=== PATIENT | female | born 1960 | race Caucasian/White ===

== ENCOUNTER 2020-01-05 19:46 | Emergency (ER) | payer BC, SELFPAY ==
[2020-01-05] VITALS (8 sets, daily range): BP systolic 111–149; BP diastolic 70–103; PULSE 96–125; RESP 16–28; TEMP 37.7; O2SAT 90–96; BMI 45.7
--- NOTE | 2020-01-05 20:12 | ECG_ITS ---
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 Measurements Intervals [place] Rate: 119 P: 57 IA: 166 QRS: 5 QRSD: 98 T: 62 QT: 339 QTc: 478 Interpretive Statements SINUS TACHYCARDIA NONSPECIFIC ST & T-WAVE ABNORMALITY ABNORMAL RHYTHM ECG Compared to ECG 12/25/2015 04:08:04 Sinus rhythm no longer present T-wave abnormality still present Electronically Signed On 01-06-2020 21:10:28 PATIENT FINANCIAL REPRESENTATIVE by Yair Rebollar M.D. [id number]
--- NOTE | 2020-01-05 20:12 | XRR_ITS ---
PROCEDURE INFORMATION: Exam: XR Chest, 1 View Exam date and time: 01/05/2020 8:32 PM Age: 59 years old Clinical indication: Cough and fever and shortness of breath; Additional info: SOB TECHNIQUE: Imaging protocol: XR of the chest Views: 1 view. COMPARISON: CR Chest 1 [place] [id number] 12/29/2018 10:16 AM FINDINGS: Lungs: Unremarkable. No consolidation. Pleural space: Unremarkable. No pleural effusion. No pneumothorax. Heart/Mediastinum: Unremarkable. No cardiomegaly. Bones/joints: Unremarkable. Other findings: Heavy body habitus. XR/XR chest 1V portable [id number] IMPRESSION: Nonacute.
--- NOTE | 2020-01-05 20:18 | ED_ITS ---
HPI - COVID General: Chief Complaint: COVID symptoms Stated Complaint: DIFF BREATHING Time Seen by Provider: 01/05/20 19:54 Triage information: Has fever, cough or shortness of breath . No known COVID + exposure last 14 days History of Present Illness: MD complaint: has COVID symptoms Prior covid testing: no COVID 19 common symptoms: positive fever(s), chills, non-productive cough, dyspnea, fatigue, body aches, headache(s), throat pain, nausea and diarrhea; negative vomiting COVID 19 other sytmptoms: negative chest pressure, chest pain, requiring oxygen or requiring more oxygen Onset (ago): hour(s) (24) Severity: moderate Pertinent comorbid conditions: COPD/respiratory disease Treatment prior to arrival: breathing treatments COVID Results: SARS-CoV-2 Antigen (Rapid) Negative (Negative) 01/05/20 20:16 01/05/20 Nasal/Oral Coronavirus 2019 PCR Pending 01/05/20 20:42 01/05/20 Review of Systems Const: Reports: fever(s), chills, body aches and fatigue Eyes: Denies: change in vision ENMT: Reports: throat pain Card: Denies: chest pain Resp: Reports: dyspnea and non-productive cough GI: Reports: nausea and diarrhea; Denies: vomiting : Denies: dysuria or hematuria Musc: Reports: back pain; Denies: neck pain, joint redness or joint warmth Skin/Breast: Denies: rash or erythema Neuro: Reports: headache(s) Psych: Denies: anxiety Physical Exam Const: GENERAL APPEARANCE: ill appearing ORIENTATION/CONSCIOUSNESS: Yes oriented to person, Yes oriented to place and Yes oriented to time HENMT: COMMON NORMALS: normocephalic, external ears normal and Normal external nose present HEAD & SCALP: normocephalic FACE & SINUS: normal facial exam NOSE: Normal external nose present and No nasal discharge present EXTERNAL EAR: Yes external ears normal Eye: COMMON NORMALS: Equal, round and reactive pupils present, EOMs intact bilaterally and conjunctivae normal EYELID: eyelids normal CONJUNCTIVA: Yes conjunctivae normal PUPIL: Yes Equal, round and reactive pupils present Neck/C-Spine: COMMON NORMALS: full ROM GENERAL: No tracheal deviation CERVICAL SPINE: Yes normal cervical lordosis and No Cervical spine tenderness Chest: COMMONS NORMALS: normal inspection of the chest CHEST: No tenderness Resp: COMMON NORMALS: clear to auscultation bilaterally EFFORT & INSPECTION: Yes tachypneic, No retractions, No uses accessory muscles and No tracheal deviation AUSCULTATION: clear to auscultation bilaterally, no rhonchi, no wheezes and lung sounds not diminished Cardio: COMMON NORMALS: regular rhythm RATE: tachycardic RHYTHM: regular rhythm HEART SOUNDS: no murmurs PERIPHERAL PULSES: radial pulses present GI: INSPECTION: No abdominal distension AUSCULTATION: No Hyperactive bowel sounds present and No Hypoactive bowel sounds present PALPATION: No Guarding due to palpation present (GI) and No Rigid due to palpation PERCUSSION: no dullness to percussion and no tympanic to percussion Neuro: SENSORIUM/ORIENTATION: Yes oriented to person, Yes oriented to place and Yes oriented to time Psych: COMMON NORMALS: mental status grossly normal Skin: COMMON NORMALS: no rashes or lesions noted GENERAL SKIN EXAM: no rashes or lesions noted Course ED course: 59-year-old female with a history of COPD. She complains of shortness of breath, fever, aches, and diarrhea. She came in tachypneic. Mildly tachycardic. Her heart rates improved after a small amount of fluid. She is placed on 2 L of oxygen with saturations at 98%, and no tachypnea. Chest x-ray is negative. Her inflammatory markers were not elevated. Her potassium was 3.2, and was repleted. She was given Toradol and Tylenol for her temperat ure and body aches, and is significantly better. Treatment options further were discussed with her, she would like to go home. She has a CPAP machine with an oxygen condenser. We will give her a tree, and nasal cannula hosing to go home with her. She will go home on dexamethasone as well. Vital Signs: Vital signs: Vital Signs Temperature 99.8 F H 01/05/20 19:48 Pulse Rate 98 01/06/20 00:08 Respiratory Rate 16 01/06/20 00:08 Blood Pressure 133/68 01/06/20 00:08 Pulse Oximetry 98 01/06/20 00:08 MDM - COVID Lab Data Result diagrams: 01/05/20 20:13 01/05/20 20:13 Labs: Lab Results 01/05/20 01/05/20 01/05/20 Range/Units 20:13 20:13 20:13 WBC 11.6 H (4.0-10.0) 10^3/uL RBC 4.36 (4.1-5.3) 10^6/uL Hgb 13.0 (11.5-15.3) g/dL Hct 39.7 (37.0-47.0) % MCV 91.1 (81-99) fL MCH 29.8 (28.0-34.0) pg MCHC 32.7 (30.0-36.0) g/dL RDW 13.1 (12.1-15.1) % Plt Count 158 (130-400) 10^3/cmm MPV 12.0 H (7.4-10.4) fL Neut % (Auto) 82.5 % Lymph % (Auto) 8.7 % [place] % (Auto) 7.0 % Eos % (Auto) 0.7 % Baso % (Auto) 0.4 % Neut # (Auto) 9.60 H (1.8-7.7) 10^3/uL Lymph # (Auto) 1.0 (0.8-4.8) 10^3/uL [place] # (Auto) 0.8 (0.2-0.9) 10^3/uL Eos # (Auto) 0.1 (0.0-0.8) 10^3/uL Baso # (Auto) 0.1 (0.0-0.1) 10^3/uL Nucleated RBC % (auto) 0 % Nucleated RBCs # 0.0 /100WBC D-Dimer 0.53 (0-0.59) ug/mIFEU Specimen Type Sample Site ABG pH (7.35-7.45) ABG pCO2 (35-45) mmHg ABG pO2 (80.0-100.0) mmHg ABG HCO3 (22-26) mmol/L ABG Base Excess (-2.0-2.0) mmol/L Fuad Test Hematocrit (37-47) % O2 Delivery Device Circuitry Negative Inspector ID Sodium 134 L (136-145) mmol/L Potassium 3.2 L (3.5-5.1) mmol/L Chloride 99 (98-107) mmol/L Carbon Dioxide 21 L (22-29) mmol/L Anion Gap 17.2 (5-19) BUN 10 (8-23) mg/dL Creatinine 0.8 (0.5-0.9) mg/dL GFR Calculation 72.9 L (90-130) mL/min Glucose 147 H (65-115) mg/dL Calculated Osmolality 280 L (285-295) mOsm/kg Lactic Acid (0.5-2.2) mmol/L Calcium 9.1 (8.5-10.5) mg/dL Magnesium 1.7 (1.7-2.3) mg/dL Ferritin 84 (15-150) ng/mL Total Bilirubin 0.4 (0.15-1.2) mg/dL AST 19 (0-32) U/L ALT 17 (0-33) U/L Alkaline Phosphatase 103 (35-105) IU/L Lactate Dehydrogenase 166 (135-214) U/L C-Reactive Protein 24.1 H (0.0-4.9) mg/L NT-Pro-B Natriuret Pep 365 H (0-125) pg/mL Total Protein 7.0 (6.6-8.7) g/dL Albumin 4.3 (3.5-5.2) g/dL Globulin 2.7 (1.3-4.6) g/dL Procalcitonin 0.20 (0-0.5) ng/mL Urine Color (Yellow) Urine Appearance (CLEAR) Urine pH (5-7) Ur Specific [place] (1.005-1.030) Urine Protein (Negative) Urine Glucose (UA) (Normal) Urine Ketones (Negative) Urine Blood (Negative) Urine Nitrate (Negative) Urine Bilirubin (Negative) Urine Urobilinogen (Negative) mg/dL Ur Leukocyte Esterase (Negative) Urine RBC (0-2) /hpf Urine WBC (0-5) /hpf Ur Squamous Epith Cells (0-5) /hpf Amorphous Sediment Urine Bacteria (NONE) /hpf Influenza Type A Ag (Negative) Influenza Type B Ag (Negative) SARS-CoV-2 Ag (Rapid) (Negative) 01/05/20 01/05/20 01/05/20 Range/Units 20:13 20:16 20:16 WBC (4.0-10.0) 10^3/uL RBC (4.1-5.3) 10^6/uL Hgb (11.5-15.3) g/dL Hct (37.0-47.0) % MCV (81-99) fL MCH (28.0-34.0) pg MCHC (30.0-36.0) g/dL RDW (12.1-15.1) % Plt Count (130-400) 10^3/cmm MPV (7.4-10.4) fL Neut % (Auto) % Lymph % (Auto) % [place] % (Auto) % Eos % (Auto) % Baso % (Auto) % Neut # (Auto) (1.8-7.7) 10^3/uL Lymph # (Auto) (0.8-4.8) 10^3/uL [place] # (Auto) (0.2-0.9) 10^3/uL Eos # (Auto) (0.0-0.8) 10^3/uL Baso # (Auto) (0.0-0.1) 10^3/uL Nucleated RBC % (auto) % Nucleated RBCs # /100WBC D-Dimer (0-0.59) ug/mIFEU Specimen Type Sample Site ABG pH (7.35-7.45) ABG pCO2 (35-45) mmHg ABG pO2 (80.0-100.0) mmHg ABG HCO3 (22-26) mmol/L ABG Base Excess (-2.0-2.0) mmol/L Fuad Test Hematocrit (37-47) % O2 Delivery Device Circuitry Negative Inspector ID Sodium (136-145) mmol/L Potassium (3.5-5.1) mmol/L Chloride (98-107) mmol/L Carbon Dioxide (22-29) mmol/L Anion Gap (5-19) BUN (8-23) mg/dL Creatinine (0.5-0.9) mg/dL GFR Calculation (90-130) mL/min Glucose (65-115) mg/dL Calculated Osmolality (285-295) mOsm/kg Lactic Acid 2.0 (0.5-2.2) mmol/L Calcium (8.5-10.5) mg/dL Magnesium (1.7-2.3) mg/dL Ferritin (15-150) ng/mL Total Bilirubin (0.15-1.2) mg/dL AST (0-32) U/L ALT (0-33) U/L Alkaline Phosphatase (35-105) IU/L Lactate Dehydrogenase (135-214) U/L C-Reactive Protein (0.0-4.9) mg/L NT-Pro-B Natriuret Pep (0-125) pg/mL Total Protein (6.6-8.7) g/dL Albumin (3.5-5.2) g/dL Globulin (1.3-4.6) g/dL Procalcitonin (0-0.5) ng/mL Urine Color (Yellow) Urine Appearance (CLEAR) Urine pH (5-7) Ur Specific [place] (1.005-1.030) Urine Protein (Negative) Urine Glucose (UA) (Normal) Urine Ketones (Negative) Urine Blood (Negative) Urine Nitrate (Negative) Urine Bilirubin (Negative) Urine Urobilinogen (Negative) mg/dL Ur Leukocyte Esterase (Negative) Urine RBC (0-2) /hpf Urine WBC (0-5) /hpf Ur Squamous Epith Cells (0-5) /hpf Amorphous Sediment Urine Bacteria (NONE) /hpf Influenza Type A Ag Negative (Negative) Influenza Type B Ag Negative (Negative) SARS-CoV-2 Ag (Rapid) Negative (Negative) 01/05/20 01/05/20 Range/Units 20:30 22:22 WBC (4.0-10.0) 10^3/uL RBC (4.1-5.3) 10^6/uL Hgb (11.5-15.3) g/dL Hct (37.0-47.0) % MCV (81-99) fL MCH (28.0-34.0) pg MCHC (30.0-36.0) g/dL RDW (12.1-15.1) % Plt Count (130-400) 10^3/cmm MPV (7.4-10.4) fL Neut % (Auto) % Lymph % (Auto) % [place] % (Auto) % Eos % (Auto) % Baso % (Auto) % Neut # (Auto) (1.8-7.7) 10^3/uL Lymph # (Auto) (0.8-4.8) 10^3/uL [place] # (Auto) (0.2-0.9) 10^3/uL Eos # (Auto) (0.0-0.8) 10^3/uL Baso # (Auto) (0.0-0.1) 10^3/uL Nucleated RBC % (auto) % Nucleated RBCs # /100WBC D-Dimer (0-0.59) ug/mIFEU Specimen Type Arterial Sample Site Radial, right ABG pH 7.48 H (7.35-7.45) ABG pCO2 31.4 L (35-45) mmHg ABG pO2 60.2 L (80.0-100.0) mmHg ABG HCO3 23.1 (22-26) mmol/L ABG Base Excess 0.3 (-2.0-2.0) mmol/L Fuad Test Pos Hematocrit 40.8 (37-47) % O2 Delivery Device None Circuitry Negative Inspector ID ellpe Sodium (136-145) mmol/L Potassium (3.5-5.1) mmol/L Chloride (98-107) mmol/L Carbon Dioxide (22-29) mmol/L Anion Gap (5-19) BUN (8-23) mg/dL Creatinine (0.5-0.9) mg/dL GFR Calculation (90-130) mL/min Glucose (65-115) mg/dL Calculated Osmolality (285-295) mOsm/kg Lactic Acid (0.5-2.2) mmol/L Calcium (8.5-10.5) mg/dL Magnesium (1.7-2.3) mg/dL Ferritin (15-150) ng/mL Total Bilirubin (0.15-1.2) mg/dL AST (0-32) U/L ALT (0-33) U/L Alkaline Phosphatase (35-105) IU/L Lactate Dehydrogenase (135-214) U/L C-Reactive Protein (0.0-4.9) mg/L NT-Pro-B Natriuret Pep (0-125) pg/mL Total Protein (6.6-8.7) g/dL Albumin (3.5-5.2) g/dL Globulin (1.3-4.6) g/dL Procalcitonin (0-0.5) ng/mL Urine Color Yellow (Yellow) Urine Appearance Sl cloudy A (CLEAR) Urine pH 5 (5-7) Ur Specific [place] 1.005 (1.005-1.030) Urine Protein Neg (Negative) Urine Glucose (UA) Norm (Normal) Urine Ketones Negative (Negative) Urine Blood 2+ H (Negative) Urine Nitrate Negative (Negative) Urine Bilirubin Neg (Negative) Urine Urobilinogen Norm (Negative) mg/dL Ur Leukocyte Esterase Negative (Negative) Urine RBC 0-4 H (0-2) /hpf Urine WBC 0-4 H (0-5) /hpf Ur Squamous Epith Cells 15-25 H (0-5) /hpf Amorphous Sediment Not Reportable Urine Bacteria 2+ H (NONE) /hpf Influenza Type A Ag (Negative) Influenza Type B Ag (Negative) SARS-CoV-2 Ag (Rapid) (Negative) COVID Results: SARS-CoV-2 Antigen (Rapid) Negative (Negative) 01/05/20 20:16 01/05/20 Nasal/Oral Coronavirus 2019 PCR Pending 01/05/20 20:42 01/05/20 Discharge Plan Discharge Patient Disposition: Home Clinical Impression: Suspected severe acute respiratory syndrome coronavirus 2 (SARS-CoV-2) infection, Acute exacerbation of chronic obstructive pulmonary disease Condition: Stable Prescriptions: New dexamethasone 6 mg tablet 6 mg PO DAILY Qty: 5 RF: 0 doxycycline hyclate 100 mg capsule 100 mg PO BID 7 Days Qty: 14 RF: 0 No Action albuterol sulfate 2.5 mg /3 mL (0.083 %) solution for nebulization 2.5 mg INHALATION TID PRN (Reason: shortness of breath or wheezing) RF: 0 atenolol 100 mg tablet 100 mg PO DAILY RF: 0 atorvastatin 40 mg tablet 40 mg PO DAILY RF: 0 Atrovent HFA 17 mcg/actuation HFA aerosol inhaler 1 puff INHALATION QID RF: 0 Breo Ellipta 200-25 mcg/dose blister with device 1 inh INHALATION DAILY RF: 0 cetirizine 10 mg capsule 10 mg PO DAILY RF: 0 clonazepam 0.5 mg tablet 0.5 mg PO BID PRNRF: 0 cyanocobalamin (vitamin B-12) 1,000 mcg/mL syringe 1,000 mcg .Route .monthly RF: 0 doxycycline hyclate 100 mg tablet 100 mg PO BID RF: 0 ergocalciferol (vitamin D2) 1,250 mcg (50,000 unit) capsule 1,250 mcg PO .weekly RF: 0 fluticasone propion-salmeterol 500-50 mcg/dose blister with device 1 inh INHALATION BID RF: 0 fluticasone propionate 50 mcg/actuation spray,suspension 1 spray INTRANASAL DAILY RF: 0 furosemide 40 mg tablet 40 mg PO BID RF: 0 ibuprofen 800 mg tablet 800 mg PO Q8H PRN (Reason: pain) RF: 0 potassium chloride [Klor-Con M20] 20 mEq tablet,ER particles/crystals 20 meq PO DAILY RF: 0 montelukast 10 mg tablet 10 mg PO DAILY RF: 0 omeprazole 40 mg capsule,delayed release(DR/EC) 40 mg PO DAILY RF: 0 pravastatin 40 mg tablet 40 mg PO DAILY RF: 0 albuterol sulfate [ProAir HFA] 90 mcg/actuation HFA aerosol inhaler 2 puff INHALATION Q6H PRNRF: 0 sertraline 100 mg tablet 100 mg PO DAILY RF: 0 Discharge Orders: Discharge Order (Routine); Ordered 01/05/20 Ordered By: Michel Nguyen Referrals: Karina Girard FNP [Primary Care Provider] - 4-7 days Discharge Diet: Advance as tolerated Discharge Activity: Increase activity as tolerated Patient Instructions: Chronic Obstructive Pulmonary Disease (ED) Activity Restrictions/Additional Instructions: Medications as directed. Use your breathing treatments at home as needed. You have been supplied with nasal cannula hosing took up to your CPAP machine. Please give us a call if you have any problems with this, as we can arrange your home medical equipment company to come by and help. Return for worsening shortness of breath despite treatment, continued fevers despite treatment, vomiting liquids or medications, other concerning symptoms. Coding Level of Care Code ED Property Economist for Rachel Fwd Exam Comprehensive
[2020-01-05] MEDS: dexamethasone 4 mg/mL INJ 10 MG IVP (20:37)
[2020-01-05] MEDS: ondansetron 2 mg/ML SDV 2 mL 4 MG IVP (20:39)
[2020-01-05 20:40] LABS: ABG PCO2 31.4 mmHg (35-45); ABG PH Result 7.48 (7.35-7.45); Arterial Blood Gas Hematocrit 40.8 % (37-47); Base Excess ABG 0.3 mmol/L (-2.0-2.0); Blood Gas Allen Test Pos; Blood Gas Sample Site Radial, right; Blood Gas Sample Type Arterial; HCO3 ABG 23.1 mmol/L (22-26); PO2 ABG 60.2 mmHg (80.0-100.0)
[2020-01-05] MEDS: fentaNYL 50 mcg/mL INJ 2mL IVP (20:40)
[2020-01-05 20:41] LABS: Basophils # 0.1 10^3/uL (0.0-0.1); Basophils % 0.4 %; Eosinophils # 0.1 10^3/uL (0.0-0.8); Eosinophils % 0.7 %; Hematocrit 39.7 % (37.0-47.0); Lymphocytes % 8.7 %; Mean Corpuscular HGB Conc 32.7 g/dL (30.0-36.0); Mean Corpuscular Hemoglobin 29.8 pg (28.0-34.0); Mean Corpuscular Volume 91.1 fL (81-99); Monocytes # 0.8 10^3/uL (0.2-0.9); Neutrophils % 82.5 %; Nucleated Red Blood Cells % 0 %; Platelet Count 158 10^3/cmm (130-400); Red Blood Count 4.36 10^6/uL (4.1-5.3); Red Cell Distribution Width 13.1 % (12.1-15.1); White Blood Count 11.6 10^3/uL (4.0-10.0)
[2020-01-05] MEDS: ketorolac 30 mg/mL INJ IVP (20:41)
[2020-01-05] MEDS: sodium chloride 0.9% 500 ML 999 ML IV (20:42)
[2020-01-05 21:00] LABS: Influenza A by IFA Negative (Negative); Influenza B by IFA Negative (Negative); SARS Covid-2 Antigen Negative (Negative)
[2020-01-05 21:03] LABS: D Dimer 0.53 ug/mIFEU (0-0.59)
[2020-01-05] MEDS: acetaminophen 500 mg Tablet 1000 MG PO (21:04)
[2020-01-05 21:14] LABS: NT Pro B Type Natriuretic Pept 365 pg/mL (0-125)
[2020-01-05 21:25] LABS: Alanine Aminotransferase 17 U/L (0-33); Albumin Level 4.3 g/dL (3.5-5.2); Alkaline Phosphatase 103 IU/L (35-105); Anion Gap 17.2 (5-19); Aspartate Amino Transferase 19 U/L (0-32); Blood Urea Nitrogen 10 mg/dL (8-23); C Reactive Protein 24.1 mg/L (0.0-4.9); Calcium 9.1 mg/dL (8.5-10.5); Carbon Dioxide 21 mmol/L (22-29); Chloride 99 mmol/L (98-107); Ferritin 84 ng/mL (15-150); Globulin 2.7 g/dL (1.3-4.6); Glomerular Filtration Rate 72.9 mL/min (90-130); Glucose 147 mg/dL (65-115); Magnesium 1.7 mg/dL (1.7-2.3); Osmolality Calculated 280 mOsm/kg (285-295); Potassium 3.2 mmol/L (3.5-5.1); Sodium 134 mmol/L (136-145); Total Bilirubin 0.4 mg/dL (0.15-1.2)
[2020-01-05 21:28] LABS: Lactate Dehydrogenase 166 U/L (135-214)
[2020-01-05] MEDS: potassium chloride ER 10 mEq Tablet 40 MEQ PO (22:10)
[2020-01-05 22:42] LABS: Add Urine Microscopic? YES; Bilirubin Urine Neg (Negative); Blood Urine 2+ (Negative); Glucose Urine UA Norm (Normal); Ketones Urine Negative (Negative); Leukocyte Esterase Urine Negative (Negative); Nitrate Urine Negative (Negative); Protein Urine Neg (Negative); Specific Gravity, Urine 1.005 (1.005-1.030); Urine Color Yellow (Yellow); Urobilinogen Urine Norm (Negative); pH Urine 5 (5-7)
[2020-01-05 22:44] LABS: RBC Urine 0-4 /hpf (0-2); WBC Urine 0-4 /hpf (0-5)
[2020-01-05 22:45] LABS: Add Urine Culture? No; Bacteria Urine 2+ /hpf; Squamous Epithelial Cell Urine 15-25 /hpf (0-5)
[2020-01-06 00:08] VITALS: BP 133/68; PULSE 98; RESP 16; O2SAT 98
[2020-01-09 14:51] LABS: Coronavirus Lab Test PTC Inconclusive
--- NOTE | 2020-01-10 08:19 | PC.NURSE ---
pt contacted and message left for pt to return call.
--- NOTE | 2020-01-10 11:07 | PC.NURSE ---
pt called back and has been retested for covid
== END 2020-01-06 00:09 | disposition home or self-care (01) ==
PROVIDERS: Emergency Provider Emergency Medicine; PCP Nurse Practitioner Family
DX: J44.1 Chronic obstructive pulmonary disease with (acute) exacerbation (principal); Z20.828 Contact with and (suspected) exposure to other viral communicable diseases
CPT/HCPCS: 12345; 36415; 36600; 71045; 80053; 81001; 82728; 82803; 83605; 83615; 83735; 83880; 84145; 85025; 85378; 86140; 87040; 87426; 87635; 87804; 93005; 96374; 96375; 99283; 99284; J1100; J1885; J2405; J3010; J7040

== ENCOUNTER → 2021-01-05 08:50 | Outpatient (BNVA) | payer BC, SELFPAY | PROVIDERS: PCP Nurse Practitioner Family; Visit Provider Surgery | DX: Z20.822 Contact with and (suspected) exposure to COVID-19 (principal) | CPT/HCPCS: 87635 ==

== ENCOUNTER 2021-01-09 07:30 | Day surgery (SDC) | payer BC, SELFPAY ==
[2021-01-07 15:47] VITALS: BMI 45.7
--- NOTE | 2021-01-09 08:09 | ANES.PREANE2 ---
Pre-Anesthetic Assessment Pre-Anesthetic Assessment: Height/Weight: Height 1.65 m Weight 124.738 kg Preop Diagnosis: diagnostic Proposed Procedure: Operation Date: 01/09/21 09:00 Proposed Procedures p Colonoscopy 95746 Z86.010(Not Applicable) - Pablo Roy MD Was Beta Vianey taken within 24 hours: Yes Was Clonidine taken within 24 hours: N/A Social: Social History: No alcohol and No tobacco Exam: Pre-Anes Outpt Exam: alert, oriented x 3, clear to auscultation bilaterally and regular rate & rhythm Airway: Submandibular: WNL Cervical ROM: WNL MP: 2 Dentition: Chipped Pulmonary: Pulmonary: COPD and Sleep apnea Metabolic: Metabolic: DM, Hyperlipidemia and Morbid obesity Musc/skel: Musc/skel: OA/DJD Neuropsych: Neuropsych: Anxiety and Depression Anesthetic Plan: ASA status: 3 Anesthesia: MAC Risk of > 500 ml blood loss (7ml/kg in children): No PFSH Anesthesia PFSH: Medical History (Updated 12/19/20 @ 12:56 by Pablo Roy MD) Asthma Colon polyps COPD (chronic obstructive pulmonary disease) Gout Hypertension Sleep apnea Surgical History (Updated 12/19/20 @ 08:44 by Pablo Roy MD) H/O colonoscopy H/O total hysterectomy History of bladder surgery History of cholecystectomy History of surgical removal of ganglion cyst History of tubal ligation Social History Smoking and tobacco status: never smoked Second hand smoke exposure: No Data Anesthesia Cardiac Studies: No Data to Display
[2021-01-09 08:12] VITALS: BP 134/85; PULSE 83; RESP 18; TEMP 36.2; O2SAT 94
[2021-01-09] MEDS: sodium chloride 0.9% 1,000 ML 30 ML IV (08:27)
--- NOTE | 2021-01-09 09:31 | W.PM.OPSUD ---
Surgery/Procedure H&P Update DATE OF PROCEDURE: January 09, 2021 DATE H&P PERFORMED: 12/19/20 H&P UPDATE INFORMATION: I have reviewed H&P completed within last 30 days, I have examined patient prior to procedure and No changes to prior documentation PREOP DIAGNOSIS: diagnostic PLANNED PROCEDURE: Operation Date: 01/09/21 09:00 Proposed Procedures p Colonoscopy 32054 Z86.010(Not Applicable) - Pablo Roy MD
[2021-01-09 10:42] VITALS: BP 110/69; PULSE 62; RESP 16; TEMP 36.4; O2SAT 97
[2021-01-09 10:57] VITALS: BP 106/64; PULSE 56; RESP 16; O2SAT 100
--- NOTE | 2021-01-09 11:13 | US_ITS ---
WS: [id number] ULTRASOUND SOFT TISSUES RIGHT elbow. HISTORY: LOCALIZED SWELLING,MASS,LUMP RIGHT UPPER LIMB COMPARISON: None available. TECHNIQUE: 2-D and color Doppler imaging is submitted. Ultrasound is directed just superior to the RIGHT elbow. No soft tissue mass identified. This would b e an good location for olecranon bursitis. The bursa does not appear significantly distended by ultra sound but if this was a complex bursitis it may not be visualized readily. US/US soft tissue/extremity [id number] IMPRESSION: No obvious soft tissue abnormality in the RIGHT superior elbow.
--- NOTE | 2021-01-09 13:56 | ANE.PACU2 ---
Inpatient post-anesthesia follow up: Airway intact: Yes Vital signs: Temperature 97.6 F Pulse Rate 56 Respiratory Rate 16 Blood Pressure 106/64 Pulse Oximetry 100 Oxygen Delivery Me thod Room Air Oxygen Flow Rate Fraction of Inspir ed Oxygen Hydration adequate: Yes Nausea and vomiting: No Pain level: 1 Mental status: Baseline
[2021-01-12 06:09] LABS: Glucose Point of Care 120 mg/dL (70-110)
== END 2021-01-09 11:15 | disposition home or self-care (01) ==
PROVIDERS: PCP Nurse Practitioner Family; Visit Provider Surgery
PROC: 0DJD8ZZ Inspection of Lower Intestinal Tract, Via Natural or Artificial Opening Endoscopic (ICD-10-PCS; CPT 45378; principal; 2021-01-09 09:00)
DX: Z86.010 Personal history of colon polyps (principal); D12.0 Benign neoplasm of cecum; D12.4 Benign neoplasm of descending colon; K57.30 Diverticulosis of large intestine without perforation or abscess without bleeding; I10 Essential (primary) hypertension; Z90.49 Acquired absence of other specified parts of digestive tract
CPT/HCPCS: 36416; 45385; 76882; 82962; 88305; 96360; 96361; J2704; J7030

== ENCOUNTER → 2021-04-10 16:21 | Outpatient (BNVA) | payer OTHER, SELFPAY | PROVIDERS: PCP Nurse Practitioner Family; Visit Provider Registered Nurse Neonatal Intensive Care | DX: M17.11 Unilateral primary osteoarthritis, right knee (principal) | CPT/HCPCS: 73562 ==

== ENCOUNTER 2021-04-15 11:45 | Outpatient (CLI) | payer OTHER, SELFPAY ==
--- NOTE | 2021-04-15 11:50 | XR_ITS ---
WS: [id number] Exam: XR shoulder RT min 2V* [id number] Date/Time of Exam: 04/15/2021 11:57 AM Reason For Exam: fell on right shoulder No acute fracture or dislocation. Degenerative change of the glenohumeral joint. Subacromial bone spu rring. There has been excision of parts of the distal clavicle. XR/XR shoulder RT min 2V* [id number] IMPRESSION: 1. Degenerative changes. No fracture or dislocation.
== END 2021-04-15 11:46 | disposition home or self-care (01) ==
LOC: RAD 11:49
PROVIDERS: PCP Nurse Practitioner Family; Visit Provider Family Medicine
DX: M25.511 Pain in right shoulder (principal); W19.XXXA Unspecified fall, initial encounter
CPT/HCPCS: 73030

== ENCOUNTER 2021-05-25 11:16 | Outpatient (CLI) | payer OTHER, SELFPAY ==
--- NOTE | 2021-05-25 11:45 | MR_ITS ---
WS: [id number] MRI RIGHT SHOULDER HISTORY: Fall on RIGHT shoulder. History of prior rotator cuff repair. COMPARISON: None available. TECHNIQUE: Multiplanar sequences of the shoulder joint are submitted. Severe AC joint narrowing with hypertrophic bone and soft tissue encroaching upon the distal supraspi natus. There is a small osteophyte from the distal undersurface of the acromion causing moderate suba cromial impingement. Humeral head is high riding abutting the acromion. Numerous anchors are noted wi thin the humeral head. There is loss of the normal cortex and cartilage of the humeral head with oste ophytes. Micrometallic fragments are present in the soft tissues from prior shoulder repair. Elongati on with abnormal appearance of the glenoid. Normal biceps tendon is not identified in the bicipital g roove. No os acromion. Supraspinatus and infraspinatus tendons are torn completely and retracted at least to the superior hu meral head. Muscles are atrophied. Subscapularis tendon has increased signal. I suspect is probably a partial tear of the subscapularis tendon. There is extensive subscapularis tendinopathy. Marked diego ohumeral joint space narrowing. Abnormal seating of the humeral head within the glenoid. Osteophytic ridging and loss of the normal labrum. MR/MR shoulder RT wo con* [id number] IMPRESSION: 1. Complete tears with retraction at least to the medial humeral head of the s upraspinatus and infraspinatus tendons with muscle atrophy. 2. Moderate tendinopathy and possible partial tear in the subscapularis tendon . 3. Severe AC joint arthritis with encroachment upon the supraspinatus muscle. 4. Advanced degenerative changes at the glenohumeral head with high riding hum eral head abutting the undersurface of the acromion. 5. Numerous anchors are noted within the humeral head from prior rotator cuff repair. 6. Biceps tendon is not identified in the bicipital groove. Suspect torn and/o r dislocated.
== END 2021-05-25 11:17 | disposition home or self-care (01) ==
LOC: RAD 11:18
PROVIDERS: PCP Nurse Practitioner Family; Visit Provider Family Medicine
DX: S46.211A Strain of muscle, fascia and tendon of other parts of biceps, right arm, initial encounter (principal); M75.121 Complete rotator cuff tear or rupture of right shoulder, not specified as traumatic; M19.011 Primary osteoarthritis, right shoulder; X58.XXXA Exposure to other specified factors, initial encounter
CPT/HCPCS: 73221

== ENCOUNTER 2021-09-05 20:50 | Inpatient (IN) | payer OTHER, SELFPAY ==
[2021-09-05 20:55] VITALS: BP 89/58; PULSE 101; RESP 29; TEMP 37.1; O2SAT 93; BMI 39.9
--- NOTE | 2021-09-05 21:13 | XRR_ITS ---
PROCEDURE INFORMATION: Exam: XR Chest Exam date and time: 09/05/2021 9:27 PM Age: 60 years old Clinical indication: Shortness of breath; Additional info: SOB TECHNIQUE: Imaging protocol: Radiologic exam of the chest. Views: 1 view. COMPARISON: CR XR chest 1V portable [id number] 01/05/2020 8:46 PM FINDINGS: Lungs: Patchy airspace opacities in the left lung base and central left lung. The right lung is clear. Pleural spaces: Unremarkable. No pleural effusion. No pneumothorax. Heart/Mediastinum: Unremarkable. No cardiomegaly. Bones/joints: Unremarkable. XR/XR chest 1V portable [id number] IMPRESSION: Patchy pneumonia or aspiration in the left lung.
--- NOTE | 2021-09-05 21:15 | ECG_ITS ---
[facility] Test Date: 2021-09-05 Pat Name: Kavin Robb Department: Room: Gender: Female Analyst Market Intelligence: : 1960 Requested By: Michel Altamirano Order Number: [id number] Kirti MD: Edward Greene M.D. Measurements Intervals [place] Rate: 93 P: 20 MS: 155 QRS: 27 QRSD: 97 T: 55 QT: 361 QTc: 450 Interpretive Statements SINUS RHYTHM WITH FREQUENT VENTRICULAR PREMATURE COMPLEXES NONSPECIFIC ST & T-WAVE ABNORMALITY ABNORMAL RHYTHM ECG Compared to ECG 01/05/2020 20:01:31 Ventricular premature complex(es) now present Sinus tachycardia no longer present T-wave abnormality still present Electronically Signed On 09-07-2021 8:09:48 CDT by Edward Greene M.D. [id number]
[2021-09-05 21:39] LABS: ABG PCO2 30.5 mmHg (35-45); ABG PH Result 7.47 (7.35-7.45); Arterial Blood Gas Hematocrit 37.7 % (37-47); Base Excess ABG -0.9 mmol/L (-2.0-2.0); Blood Gas Allen Test Pos; Blood Gas LPM 2.5 %; Blood Gas Operator Identificat WALCI; Blood Gas Sample Site Radial, left; Blood Gas Sample Type Arterial; Carboxyhemoglobin 1.1 %THgb (0.4-20.1); HGB O2 Sat 94.5 % (95-100); Oxygen Device NC; PO2 ABG 77.1 mmHg (80.0-100.0); Total Hemoglobin 12.3 g/dL (12-16)
[2021-09-05 21:42] VITALS: PULSE 96; RESP 18; O2SAT 96
[2021-09-05] MEDS: ipratropium-albuterol 3 mL Neb INHALATION (21:43)
[2021-09-05 21:44] VITALS: PULSE 95
[2021-09-05 22:39] LABS: Hematocrit 37.8 % (37.0-47.0); Hemoglobin 12.2 g/dL (11.5-15.3); Mean Corpuscular HGB Conc 32.3 g/dL (30.0-36.0); Mean Corpuscular Hemoglobin 29.2 pg (28.0-34.0); Mean Corpuscular Volume 90.4 fl (81-99); Mean Platelet Volume 11.1 fL (7.4-10.4); Platelet Count 151 10^3/cmm (130-400); Red Blood Count 4.18 10^6/uL (4.1-5.3); Red Cell Distribution Width 12.9 % (12.1-15.1); White Blood Count 7.7 10^3/uL (4.0-10.0)
[2021-09-05 22:57] LABS: Lactic Sepsis W/Reflex 2.5 mmol/L (0.5-2.2); Troponin(5th) Baseline 6 ng/L (0-10)
[2021-09-05 23:08] LABS: Alanine Aminotransferase 10 U/L (0-33); Albumin Level 3.3 g/dL (3.5-5.2); Alkaline Phosphatase 116 IU/L (35-105); Anion Gap 18.4 (5-19); Aspartate Amino Transferase 10 U/L (0-32); Blood Urea Nitrogen 31 mg/dL (8-23); Calcium 8.8 mg/dL (8.5-10.5); Carbon Dioxide 23 mmol/L (22-29); Chloride 90 mmol/L (98-107); Globulin 3.2 g/dL (1.3-4.6); Glomerular Filtration Rate 26.8 mL/min (90-130); Glucose 116 mg/dL (65-115); NT Pro B Type Natriuretic Pept 1349 pg/mL (0-125); Osmolality Calculated 274 mOsm/kg (285-295); Potassium 3.4 mmol/L (3.5-5.1); Sodium 128 mmol/L (136-145); Total Bilirubin 0.9 mg/dL (0.15-1.2); Total Protein 6.5 g/dL (6.6-8.7)
--- NOTE | 2021-09-05 23:15 | ECG_ITS ---
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 Measurements Intervals [place] Rate: 97 P: 62 ID: [id number] QRS: 55 QRSD: 101 T: 66 QT: 379 QTc: 483 Interpretive Statements SINUS RHYTHM NONSPECIFIC ST & T-WAVE ABNORMALITY Compared to ECG 09/05/2021 21:46:09 Ventricular premature complex(es) no longer present T-wave abnormality still present Electronically Signed On 09-07-2021 18:15:46 CDT by Edward Greene M.D. [id number]
[2021-09-05 23:30] VITALS: BP 85/50; PULSE 91; O2SAT 94
[2021-09-05 23:37] LABS: Absolute Neutrophil 7.1 10^3/cmm (1.4-6.5); Absolute Segmented Neutrophil 5.3 10/cmm (1.6-7.1); Band Neutrophils Absolute 1.8 10^3/cmm (0.0-1.2); Eosinophils 0 %; Lymphocytes 7 %; Lymphocytes Absolute 0.5 10^3/cmm (1.2-3.4); Monocytes Absolute 0.1 10^3/cmm (0.1-0.6); Platelet Estimate Normal (Normal); Segmented Neutrophils 69 %; Total Cells Counted 100 (0-100)
[2021-09-05 23:38] LABS: Toxic Vacuolation 1+
[2021-09-05 23:45] VITALS: BP 96/65; PULSE 95; RESP 20; O2SAT 95
[2021-09-05] MEDS: piperacillin-tazobactam 4.5 GM in sodium chloride 0.9% (plus) 50 ML IV (23:46)
[2021-09-05] MEDS: sodium chloride 0.9% 1,000 ML 999 ML IV (23:46)
[2021-09-06] VITALS (87 sets, daily range): BP systolic 68–129; BP diastolic 39–87; PULSE 76–109; RESP 16–28; TEMP 36.6–37; O2SAT 90–99; BMI 39.9
[2021-09-06 00:06] LABS: Adenovirus Not Detected (NOT DETECT); Chlamydia Pneumoniae Not Detected (NOT DETECT); Coronavirus 229E,HKU1,NL63,OC4 Not Detected (NOT DETECT); Human Metapneumovirus Not Detected (NOT DETECT); Human Rhinovirus/Enterovirus Not Detected (NOT DETECT); Influenza A Not Detected (NOT DETECT); Influenza A H1 Not Detected (NOT DETECT); Influenza A H1-2009 Not Detected (NOT DETECT); Influenza A H3 Not Detected (NOT DETECT); Influenza B Not Detected (NOT DETECT); Mycoplasma Pneumoniae Not Detected (NOT DETECT); Parainfluenza Virus Type 1 Not Detected (NOT DETECT); Parainfluenza Virus Type 2 Not Detected (NOT DETECT); Parainfluenza Virus Type 3 Not Detected (NOT DETECT); Parainfluenza Virus Type 4 Not Detected (NOT DETECT); Respiratory Syncytial Virus A Not Detected (NOT DETECT); Respiratory Syncytial Virus B Not Detected (NOT DETECT); SARS-COV-2 Not Detected (NOT DETECT)
--- NOTE | 2021-09-06 00:12 | W.ED.SOB ---
HPI - SOB/Dyspnea General: Chief Complaint: Shortness of Breath/Dyspnea Stated Complaint: sob, cough Time Seen by Provider: 09/05/21 21:05 Source: patient and family History of Present Illness: HPI Narrative: 60-year-old female presents with left-sided posterior wall chest pain and back pain, shortness of breath and cough. She says she has been sick for about 3 days. She does not use oxygen at home, and has an oxygen requirement here. Cough is not productive. No increased leg swelling. She has significant pain when she coughs. She does have a history of COPD and pneumonia. No known COVID positive contacts. MD elicited complaint: shortness of breath, cough and pain with inspiration Pertinent past history: COPD Onset (ago): day(s) Context: recent illness Timing: constant and progressively worsening Severity: moderate Exacerbating factors: lying flat, exertion, coughing and inspiration Relieving factors: oxygen Known history of: COPD Associated symptoms: Reports chest pain (Posterior left chest wall), cough, diaphoresis, fever(s) and nausea; Deny abdominal pain, extremity pain or vomiting Treatment prior to arrival: bronchodilator Related Data: Home oxygen amount: none Review of Systems Const: Reports: fever(s) and diaphoresis ENMT: Reports: throat pain and odynophagia; Denies: hoarseness Card: Reports: chest pain (Posterior left chest wall) Resp: Reports: dyspnea and non-productive cough GI: Reports: nausea; Denies: abdominal pain or vomiting Musc: Denies: extremity pain Neuro: Reports: headache(s) PFS ED PFSH: Medical History Asthma Colon polyps COPD (chronic obstructive pulmonary disease) Gout Hypertension Sleep apnea Surgical History H/O colonoscopy (01/09/21) H/O total hysterectomy History of bladder surgery History of cholecystectomy History of surgical removal of ganglion cyst History of tubal ligation Social History Smoking and tobacco status: never smoked Second hand smoke exposure: No Physical Exam Const: GENERAL APPEARANCE: cooperative and ill appearing NUTRITIONAL APPEARANCE: obese HENMT: COMMON NORMALS: normocephalic, atraumatic and Normal external nose present HEAD & SCALP: normocephalic and atraumatic FACE & SINUS: normal facial exam and face symmetric NOSE: Normal external nose present Eye: COMMON NORMALS: Equal, round and reactive pupils present and EOMs intact bilaterally PUPIL: Yes Equal, round and reactive pupils present Chest: CHEST: Yes Symmetrical chest wall rise and Yes tenderness (Left posterior chest wall) Resp: COMMON NORMALS: clear to auscultation bilaterally EFFORT & INSPECTION: Yes tachypneic AUSCULTATION: clear to auscultation bilaterally and diminished lung sounds Cardio: COMMON NORMALS: regular rate and regular rhythm RATE: regular rate RHYTHM: regular rhythm GI: COMMON NORMALS: Normal to inspection, nondistended, normoactive bowel sounds present, Soft to palpation and non-tender PALPATION: Yes Soft to palpation Extremity: COMMON NORMALS: no pedal edema Neuro: MARA COMA SCALE: document GCS findings [place] coma scale eye opening: Spontaneous Mara coma scale verbal response: Orientated [place] coma scale motor response: Obey commands Mara coma scale total score: 15 Course Vital Signs: Vital signs: Vital Signs Temperature 98.8 F 09/05/21 20:55 Pulse Rate 91 09/05/21 23:30 Respiratory Rate 18 09/05/21 21:42 Blood Pressure 85/50 09/05/21 23:30 Pulse Oximetry 94 09/05/21 23:30 MDM - SOB/Dyspnea Medical Decision Making 60-year-old female with a history of COPD. She tested negative for COVID by PCR here. Lactate is 2.5. She is requiring oxygen. She has a left-sided lower and upper lobe infiltrate. Creatinine baseline is 1.1, now 1.9. CBC is normal. She has received breathing treatments here. She has 23% bands on her differential. She has received IV Zosyn after blood cultures here. She will be admitted for left-sided community-acquired pneumonia. Lab Data : 09/05/21 22:10 09/05/21 22:10 Labs/Radiology: Radiology Impressions Chest X-Ray 09/05/21 21:13 IMPRESSION: Patchy pneumonia or aspiration in the left lung. Laboratory Results WBC 7.7 10^3/uL (4.0-10.0) 09/05/21 22:10 RBC 4.18 10^6/uL (4.1-5.3) 09/05/21 22:10 Hgb 12.2 g/dL (11.5-15.3) 09/05/21 22:10 Hct 37.8 % (37.0-47.0) 09/05/21 22:10 MCV 90.4 fl (81-99) 09/05/21 22:10 MCH 29.2 pg (28.0-34.0) 09/05/21 22:10 MCHC 32.3 g/dL (30.0-36.0) 09/05/21 22:10 RDW 12.9 % (12.1-15.1) 09/05/21 22:10 Plt Count 151 10^3/cmm (130-400) 09/05/21 22:10 MPV 11.1 fL (7.4-10.4) H 09/05/21 22:10 Lymph % (Auto) Not Reportable 09/05/21 22:10 [place] % (Auto) Not Reportable 09/05/21 22:10 Lymph # (Auto) Not Reportable 09/05/21 22:10 [place] # (Auto) Not Reportable 09/05/21 22:10 Total Counted 100 (0-100) 09/05/21 22:10 Atypical Lymphs % 0.0 % (0-5) 09/05/21 22:10 Absolute Neutrophils 7.1 10^3/cmm (1.4-6.5) H 09/05/21 22:10 Segmented Neutrophils 69 % 09/05/21 22:10 Abs Segm Neuts (Man) 5.3 10/cmm (1.6-7.1) 09/05/21 22:10 Band Neutrophils 23.0 % 09/05/21 22:10 Abs Band Neuts (Man) 1.8 10^3/cmm (0.0-1.2) H 09/05/21 22:10 Absolute Lymphocytes 0.5 10^3/cmm (1.2-3.4) L 09/05/21 22:10 Lymphocytes (Manual) 7 % 09/05/21 22:10 Monocytes (Manual) 1.0 % 09/05/21 22:10 Absolute Monocytes 0.1 10^3/cmm (0.1-0.6) 09/05/21 22:10 Eosinophils (Manual) 0 % 09/05/21 22:10 Absolute Eosinophils 0.0 10^3/cmm (0.0-0.7) 09/05/21 22:10 Basophils (Manual) 0.0 % 09/05/21 22:10 Absolute Basophils 0.0 10^3/cmm (0.0-0.2) 09/05/21 22:10 Toxic Vacuolation 1+ H 09/05/21 22:10 Platelet Estimate Normal (Normal) 09/05/21 22:10 D-Dimer 1.20 ug/mIFEU (0-0.59) H 09/05/21 22:10 Specimen Type Arterial 09/05/21 21:28 Sample Site Radial, left 09/05/21:28 ABG pH 7.47 (7.35-7.45) H 09/05/21:28 ABG pCO2 30.5 mmHg (35-45) L 09/05/21: ABG pO2 77.1 mmHg (80.0-100.0) L 09/05/21: ABG HCO3 22.0 mmol/L (22-26) 09/05/21 21: ABG Base Excess -0.9 mmol/L (-2.0-2.0) 09/05/21 21:28 Fuad Test Pos 09/05/21 21:28 Hematocrit 37.7 % (37-47) 09/05/21 21:28 Hgb O2 Saturation 94.5 % (95-100) L 09/05/21 21:28 Carboxyhemoglobin 1.1 %THgb (0.4-20.1) 09/05/21 21:28 Methemoglobin 1.0 % (0.4-1.5) 09/05/21 21:28 Total Hemoglobin 12.3 g/dL (12-16) 09/05/21 21:28 O2 Delivery Device Nc 09/05/21:28 O2 Liters/Min 2.5 % 09/05/21 21:28 Silver Wrapper ID Pauly 09/05/21 21:28 Sodium 128 mmol/L (136-145) L 09/05/21 22:10 Potassium 3.4 mmol/L (3.5-5.1) L 09/05/21 22:10 Chloride 90 mmol/L (98-107) L 09/05/21 22:10 Carbon Dioxide 23 mmol/L (22-29) 09/05/21 22:10 Anion Gap 18.4 (5-19) 09/05/21 22:10 BUN 31 mg/dL (8-23) H 09/05/21 22:10 Creatinine 1.9 mg/dL (0.5-0.9) H 09/05/21 22:10 GFR Calculation 26.8 mL/min (90-130) L 09/05/21 22:10 Glucose 116 mg/dL (65-115) H 09/05/21 22:10 Calculated Osmolality 274 mOsm/kg (285-295) L 09/05/21 22:10 Lactic Acid 2.5 mmol/L (0.5-2.2) H 09/05/21 22:10 Calcium 8.8 mg/dL (8.5-10.5) 09/05/21 22:10 Total Bilirubin 0.9 mg/dL (0.15-1.2) 09/05/21 22:10 AST 10 U/L (0-32) 09/05/21 22:10 ALT 10 U/L (0-33) 09/05/21 22:10 Alkaline Phosphatase 116 IU/L (35-105) H 09/05/21 22:10 Troponin T Baseline 6 ng/L (0-10) 09/05/21 22:10 NT-Pro-B Natriuret Pep 1349 pg/mL (0-125) H 09/05/21 22:10 Total Protein 6.5 g/dL (6.6-8.7) L 09/05/21 22:10 Albumin 3.3 g/dL (3.5-5.2) L 09/05/21 22:10 Globulin 3.2 g/dL (1.3-4.6) 09/05/21 22:10 Coronavirus 229E (PCR) Not detected (NOT DETECT) 09/05/21 22:16 SARS-CoV-2 (PCR) Not detected (NOT DETECT) 09/05/21 22:16 Discharge Plan Discharge Patient Disposition: Admitted As Inpatient Admit Provider: Ariana Zavala Clinical Impression: Community acquired pneumonia, Acute respiratory failure with hypoxia Condition: Stable Coding Level of Care Code ED [employer] for Chg Fwd
[2021-09-06 00:21] LABS: Reflex Lactate Order REFLEX LACTIC ORDERD
[2021-09-06 01:11] LABS: Troponin 5 2HR Delta 0 ABS# (0-10)
--- NOTE | 2021-09-06 01:33 | PC.NURSE ---
ADMIT NOTE Pt received to floor from ER at 0110. Walked from gurney to bed. Is alert and oriented. Says has not been feeling well since and her sister came today and thought she needed to come to the ER to be seen. Reports a prod cough and increasing SOB and weakness. Denies any dizziness when up. SOB is worse with exertion. c/o some chest pain with coughing. Also says her left shoulder has been hurting but attributes that to arthritis. O2 in place at 3l per NC. VS check done. Does say low BP is not normal for her and is usually HTN.
--- NOTE | 2021-09-06 03:15 | ECG_ITS ---
[facility] Test Date: 2021-09-06 Pat Name: Kavin Robb Department: Room: 251 Gender: Female Neurology Tech: : [id number] Requested By: Michel Altamirano Order Number: [id number] Kirti MD: Edward Greene M.D. Measurements Intervals [place] Rate: 94 P: 53 GA: 144 QRS: 50 QRSD: 101 T: 55 QT: 374 QTc: 470 Interpretive Statements SINUS RHYTHM Compared to ECG 09/05/2021 23:29:45 T-wave abnormality no longer present Electronically Signed On 09-07-2021 18:15:28 CDT by Edward Greene M.D. [id number]
[2021-09-06] MEDS: ipratropium-albuterol 3 mL Neb INHALATION ×4 (03:27→20:49)
[2021-09-06] MEDS: sodium chloride 0.45% 1,000 ML 100 ML IV (03:27)
[2021-09-06] MEDS: cefTRIAXone 1,000 MG in sodium chloride 0.9% (plus) 50 ML 100 MG IV (03:27)
[2021-09-06] MEDS: acetaminophen 325 mg Tablet 650 MG PO (03:28)
[2021-09-06] MEDS: enoxaparin 40 mg/0.4 mL Syringe SUBCUT (03:28)
[2021-09-06] MEDS: sodium chloride 0.9% 500 ML 999 ML IV (04:25)
--- NOTE | 2021-09-06 04:30 | P.HP_ITS ---
Providers/Chief Complaint Admitting Physician: Ariana Zavala MD Primary Care Provider: RICHAR Hawk Chief Complaint: sob, cough History of Present Illness Kavin Robb is a 60 year old female with PMH asthma, COPD, DIAZ, morbid obesity dyslipidemia, hypertension, diabetes, gout presenting to the emergency room today with chief complaints of generalized fatigue, malaise, cough with expectoration and progressively increasing dyspnea over the past 4 to 5 days. She has a new oxygen requirement of 3 L/min today. Typically does not wear oxygen. Has a past history of COPD and has been using her inhalers, however has not found significant relief. Complains of subjective fever present. States she has additionally not taken her Lasix over the past 4 to 5 days because she has been feeling so fatigued and unable to get out of bed. Over the past 2 days she has additionally developed pain over left side of her chest, made worse by movement and deep breathing. Pain is nonradiating, 5-6 on 10 in intensity. Chest x-ray today showed a left lower lobe pneumonia, ABG with hypoxia, soft blood pressure with systolic ranging between 80-90. Patient states she has been told that she has spot on her lung which was evaluated with a PET scan few years ago, however unable to recall any other details at this time. Review of Systems General: Reports: 10 or more systems reviewed and unremarkable except in HPI and below Const: Denies: fever(s), chills or body aches Eyes: Denies: change in vision, blurry vision or photophobia ENMT: Reports: hoarseness; Denies: throat pain, enlarged tonsils, odynophagia or nasal congestion Card: Denies: chest pain, palpitations, irregular heart rhythm, edema, swelling of feet/ankles, lightheadedness, pre-syncope, dyspnea on exertion or orthopnea Resp: Denies: dyspnea, productive cough, non-productive cough, wheezing, stridor, pain on inspiration, change in phlegm color, hemoptysis or chest congestion GI: Denies: abdominal pain, nausea, vomiting, hematemesis, coffee ground emesis, dysphagia, heartburn, diarrhea, constipation, GI cramping, change in st ool character, hematochezia or melena : Denies: flank pain, difficulty voiding, dysuria, urinary frequency, urinary urgency, urinary hesitancy or hematuria Musc: Denies: neck pain, back pain, extremity pain, joint swelling, joint warmth or deformity Neuro: Denies: headache(s), numbness in extremities, weakness in extremities, sensory changes, difficulty walking, frequent falls, dizziness, vertigo, behavio ral changes, Slurred speech present or seizure-like activity Psych: Denies: anxiety, depression, suicidal ideation or homicidal ideation Endo: Denies: polyuria, polydipsia, tired all the time, cold intolerance or hot flashes Alex/Lymph: Denies: easy bruising or easy bleeding Medications/Allergies Home Medications Medication Instructions Recorded Confirmed Last Taken Type albuterol sulfate 2.5 mg INHALATION TID PRN ml 12/19/19 04/30/21 01/08/21 History albuterol sulfate 90 mcg/actuation 2 puff INHALATION Q6H PRN 12/19/19 04/30/21 01/08/21 History aerosol inhaler (ProAir HFA) atenolol 100 mg tablet 50 mg PO DAILY 12/19/19 04/30/21 01/08/21 History atorvastatin 40 mg tablet 40 mg PO DAILY 12/19/19 04/30/21 01/08/21 History cetirizine 10 mg capsule 10 mg PO DAILY 12/19/19 04/30/21 01/08/21 History clonazepam 0.5 mg tablet 0.5 mg PO BID PRN 12/19/19 04/30/21 01/08/21 History cyanocobalamin (vitamin B-12) 1,000 mcg .ROUTE .monthly 12/19/19 04/30/21 01/08/21 History 1,000 mcg/mL injection syringe ergocalciferol (vitamin D2) 1,250 1,250 mcg PO .weekly cap 12/19/19 04/30/21 01/08/21 History mcg (50,000 unit) capsule fluticasone 500 mcg-salmeterol 50 1 inh INHALATION BID 12/19/19 04/30/21 01/08/21 History mcg/dose blistr powdr for inhalation fluticasone propionate 50 1 spray INTRANASAL DAILY 12/19/19 04/30/21 01/08/21 History mcg/actuation nasal spray,suspension furosemide 40 mg tablet 40 mg PO BID 12/19/19 04/30/21 01/08/21 History ibuprofen 800 mg tablet 800 mg PO Q8H PRN 12/19/19 04/30/21 01/08/21 History montelukast 10 mg tablet 10 mg PO DAILY 12/19/19 04/30/21 01/08/21 History potassium chloride 20 mEq 20 meq PO DAILY 12/19/19 04/30/21 01/08/21 History tablet,extended release(part/cryst) (Klor-Con M) sertraline 100 mg tablet 100 mg PO DAILY 12/19/19 04/30/21 01/08/21 History allopurinol 100 mg tablet 100 mg PO DAILY 11/28/20 04/30/21 01/08/21 History metformin 500 mg tablet 500 mg PO BID 11/28/20 04/30/21 01/08/21 History Allergies Allergy/AdvReac Type Severity Reaction Status Date / Time oxycodone [From OxyContin] Allergy Mild itching Verified 04/30/21 10:25 metronidazole [From Flagyl] Allergy Unknown Verified 04/30/21 10:25 lisinopril AdvReac cough Verified 04/30/21 10:25 PFSH Acute PFSH: Medical History Asthma Colon polyps COPD (chronic obstructive pulmonary disease) Gout Hypertension Sleep apnea Surgical History H/O colonoscopy (01/09/21) H/O total hysterectomy History of bladder surgery History of cholecystectomy History of surgical removal of ganglion cyst History of tubal ligation Social History Smoking and tobacco status: never smoked Second hand smoke exposure: No Vitals/I&O/Wt Last Vital Signs Temp 98.2 F 09/06/21 01:39 Pulse 85 09/06/21 05:59 Resp 18 09/06/21 03:27 BP 88/50 09/06/21 05:25 Pulse Ox 94 09/06/21 03:27 09/05/21 09/05/21 09/06/21 14:59 22:59 06:59 Intake Total 1220 / 1220 Output Total 400 / 400 Balance 820 / 820 Weight last 48 hrs Weight 108.862 kg Weight 108.862 kg Physical Exam Narrative: General: No acute distress, AO x3 HEENT: PERRLA, pupils bilaterally equal and reactive, pallors not present Chest: reduced air entry left infraaxillary area CVS: S1-S2 regular, no murmurs, no tachycardia, no gallops, no rubs Abdomen: Soft, nontender, no organomegaly, bowel sounds present Neuro: No focal deficits, no facial deformity, AO x3, power 5/5 in all limbs Extremities: 1+ pitting edema B/L Data : 09/05/21 22:10 09/06/21 04:18 Other Labs: Radiology Impressions Chest X-Ray 09/05/21 21:13 IMPRESSION: Patchy pneumonia or aspiration in the left lung. Laboratory Results WBC 7.7 10^3/uL (4.0-10.0) 09/05/21 22:10 RBC 4.18 10^6/uL (4.1-5.3) 09/05/21 22:10 Hgb 12.2 g/dL (11.5-15.3) 09/05/21 22:10 Hct 37.8 % (37.0-47.0) 09/05/21 22:10 MCV 90.4 fl (81-99) 09/05/21 22:10 MCH 29.2 pg (28.0-34.0) 09/05/21 22:10 MCHC 32.3 g/dL (30.0-36.0) 09/05/21 22:10 RDW 12.9 % (12.1-15.1) 09/05/21 22:10 Plt Count 151 10^3/cmm (130-400) 09/05/21 22:10 MPV 11.1 fL (7.4-10.4) H 09/05/21 22:10 Lymph % (Auto) Not Reportable 09/05/21 22:10 [place] % (Auto) Not Reportable 09/05/21 22:10 Lymph # (Auto) Not Reportable 09/05/21 22:10 [place] # (Auto) Not Reportable 09/05/21 22:10 Total Counted 100 (0-100) 09/05/21 22:10 Atypical Lymphs % 0.0 % (0-5) 09/05/21 22:10 Absolute Neutrophils 7.1 10^3/cmm (1.4-6.5) H 09/05/21 22:10 Segmented Neutrophils 69 % 09/05/21 22:10 Abs Segm Neuts (Man) 5.3 10/cmm (1.6-7.1) 09/05/21 22:10 Band Neutrophils 23.0 % 09/05/21 22:10 Abs Band Neuts (Man) 1.8 10^3/cmm (0.0-1.2) H 09/05/21 22:10 Absolute Lymphocytes 0.5 10^3/cmm (1.2-3.4) L 09/05/21 22:10 Lymphocytes (Manual) 7 % 09/05/21 22:10 Monocytes (Manual) 1.0 % 09/05/21 22:10 Absolute Monocytes 0.1 10^3/cmm (0.1-0.6) 09/05/21 22:10 Eosinophils (Manual) 0 % 09/05/21 22:10 Absolute Eosinophils 0.0 10^3/cmm (0.0-0.7) 09/05/21 22:10 Basophils (Manual) 0.0 % 09/05/21 22:10 Absolute Basophils 0.0 10^3/cmm (0.0-0.2) 09/05/21 22:10 Toxic Vacuolation 1+ H 09/05/21 22:10 Platelet Estimate Normal (Normal) 09/05/21 22:10 D-Dimer 1.20 ug/mIFEU (0-0.59) H 09/05/21 22:10 Specimen Type Arterial 09/05/21 21:28 Sample Site Radial, left 09/05/21 21:28 ABG pH 7.47 (7.35-7.45) H 09/05/21 21:28 ABG pCO2 30.5 mmHg (35-45) L 09/05/21: ABG pO2 77.1 mmHg (80.0-100.0) L 09/05/21 21: ABG HCO3 22.0 mmol/L (22-26) 09/05/21: ABG Base Excess -0.9 mmol/L (-2.0-2.0) 09/05/21 21: Fuad Test Pos 09/05/21 21:28 Hematocrit 37.7 % (37-47) 09/05/21 21:28 Hgb O2 Saturation 94.5 % (95-100) L 09/05/21 21:28 Carboxyhemoglobin 1.1 %THgb (0.4-20.1) 09/05/21 21:28 Methemoglobin 1.0 % (0.4-1.5) 09/05/21 21:28 Total Hemoglobin 12.3 g/dL (12-16) 09/05/21 21:28 O2 Delivery Device Nc 09/05/21 21:28 O2 Liters/Min 2.5 % 09/05/21 21:28 Weight Calculator ID Pauly 09/05/21 21:28 Sodium 132 mmol/L (136-145) L 09/06/21 04:18 Potassium 3.8 mmol/L (3.5-5.1) 09/06/21 04:18 Chloride 95 mmol/L (98-107) L 09/06/21 04:18 Carbon Dioxide 21 mmol/L (22-29) L 09/06/21 04:18 Anion Gap 19.8 (5-19) H 09/06/21 04:18 BUN 34 mg/dL (8-23) H 09/06/21 04:18 Creatinine 1.9 mg/dL (0.5-0.9) H 09/06/21 04:18 GFR Calculation 26.8 mL/min (90-130) L 09/06/21 04:18 Glucose 108 mg/dL (65-115) 09/06/21 04:18 Calculated Osmolality 282 mOsm/kg (285-295) L 09/06/21 04:18 Lactic Acid 2.5 mmol/L (0.5-2.2) H 09/05/21 22:10 Calcium 8.3 mg/dL (8.5-10.5) L 09/06/21 04:18 Total Bilirubin 0.9 mg/dL (0.15-1.2) 09/06/21 04:18 AST 13 U/L (0-32) 09/06/21 04:18 ALT 10 U/L (0-33) 09/06/21 04:18 Alkaline Phosphatase 114 IU/L (35-105) H 09/06/21 04:18 Troponin T Baseline 6 ng/L (0-10) 09/05/21 22:10 Troponin T 120 Minute 6.00 ng/L (0-10) 09/06/21 00:10 Delta Troponin T 0 ABS# (0-10) 09/06/21 00:10 Troponin T Hi Sens 6Hr 6.35 ng/L (0-10) 09/06/21 04:18 Troponin T Hi Sens 6Hr Delta 0.35 ng/L (0-12) 09/06/21 04:18 NT-Pro-B Natriuret Pep 1349 pg/mL (0-125) H 09/05/21 22:10 Total Protein 5.6 g/dL (6.6-8.7) L 09/06/21 04:18 Albumin 2.7 g/dL (3.5-5.2) L 09/06/21 04:18 Globulin 2.9 g/dL (1.3-4.6) 09/06/21 04:18 Coronavirus 229E (PCR) Not detected (NOT DETECT) 09/05/21 22:16 SARS-CoV-2 (PCR) Not detected (NOT DETECT) 09/05/21 22:16 Micro: Microbiology 09/06/21 03:45 Legionella Urinary Antigen - Final Urine,Voided 09/05/21 22:50 Blood Culture - Preliminary Blood SPECIMEN COLLECTED 09/05/21 22:45 Blood Culture - Preliminary Blood SPECIMEN COLLECTED ABG Interpretation 1: 09/05/21 21:28 ABG pH 7.47 H ABG pCO2 30.5 L ABG pO2 77.1 L ABG HCO3 22.0 ABG Base Excess -0.9 A&P Assessment and plan (1) Community acquired pneumonia: Chest x-ray with left lower lobe infiltrate along with symptoms of cough expectoration and dyspnea, new oxygen requirement concerning for community- acquired pneumonia. Start ceftriaxone 1 g IV every 24 and azithromycin 500 mg p.o. daily Urine Legionella and bacterial antigens, MRSA nasal screen, sputum culture and gram stain COVID PCR negative DuoNeb and budesonide scheduled inhalation Blood pressures running soft between 80-90 systolic, she has received 1 L of IV fluid bolus in the ER. We will give an additional 500 cc bolus and start her on normal saline at 100 cc an hour. Closely monitor for signs of developing hypervolemia. Given pleuritic type chest pain, acute onset of hypoxia, hypotension, lower extremity edema, respiratory alkalosis differential includes PE. Will check D- dimer, if elevated proceed with CTA chest. Holding Lasix for now. Status: Acute (2) Acute respiratory failure with hypoxia: Likely as a result of left lower lobe pneumonia ABG with respiratory alkalosis Status: Acute (3) COPD (chronic obstructive pulmonary disease): Without acute exacerbation. Scheduled nebulization with DuoNeb and budesonide. CPAP at night given history of DIAZ. Status: Acute Qualifiers: COPD type: unspecified COPD Qualified Code(s): J44.9 - Chronic obstructive pulmonary disease, unspecified (4) YOLANDA (acute kidney injury): May be related to hypotensive state, poor renal perfusion Check urine lites, urine creatinine to estimate FENA Status: Acute Plan # Chest pain: Troponin series negative. Appears more pleuritic in nature. Attestations Medical Necessity Statement*: Anticipate greater than 2 midnight admission for management of community acquired pneumonia, IV antibiotics, YOLANDA. Coding Level of Care Code Acute [employer] for [facility] Fwd Diagnoses Community acquired pneumonia J18.9 Acute respiratory failure with hypoxia J96.01 COPD (chronic obstructive pulmonary disease) J44.9 COPD type: unspecified COPD YOLANDA (acute kidney injury) N17.9
[2021-09-06] MEDS: lanolin oint 7 gm 1 APPLIC TOPICAL (05:09)
[2021-09-06 05:42] LABS: Troponin 5 6HR 6.35 ng/L (0-10)
[2021-09-06 05:43] LABS: Alanine Aminotransferase 10 U/L (0-33); Albumin Level 2.7 g/dL (3.5-5.2); Alkaline Phosphatase 114 IU/L (35-105); Blood Urea Nitrogen 34 mg/dL (8-23); Calcium 8.3 mg/dL (8.5-10.5); Carbon Dioxide 21 mmol/L (22-29); Chloride 95 mmol/L (98-107); Globulin 2.9 g/dL (1.3-4.6); Glomerular Filtration Rate 26.8 mL/min (90-130); Glucose 108 mg/dL (65-115); Osmolality Calculated 282 mOsm/kg (285-295); Sodium 132 mmol/L (136-145); Total Bilirubin 0.9 mg/dL (0.15-1.2); Total Protein 5.6 g/dL (6.6-8.7)
[2021-09-06 05:45] LABS: Anion Gap 19.8 (5-19); Potassium 3.8 mmol/L (3.5-5.1)
[2021-09-06 05:46] LABS: Aspartate Amino Transferase 13 U/L (0-32)
[2021-09-06 06:12] LABS: Troponin 5 6HR Delta 0.35 ng/L (0-12)
--- NOTE | 2021-09-06 06:15 | USCV_ITS ---
Kavin Robb Age: 60 Gender: F : 1960 Exam Date: 09/06/2021 08:24 Ordering Phys: Ariana Zavala MD Technologist: Tani Gerard Exam Location: [facility] [place]_ Indication: bed statis PROCEDURES: The venous duplex Doppler examination of both lower extremities was performed in the standard fashion. The following venous structures were evaluated: common femoral vein, profunda vein, proximal portion of the greater saphenous vein, superficial femoral vein, and the popliteal vein. In addition, the posterior tibial and peroneal trunk were evaluated. FINDINGS: Normal 2-D Doppler and augmentation and compressibility throughout the lower extremity venous structures. Additional imaging through the proximal calf veins also reveals no thrombus. Limited evaluation of the greater saphenous vein is patent with no thrombus.. CONCLUSIONS No evidence of right lower extremity DVT. No evidence of left lower extremity DVT. Yuval Brice MD (Electronically Signed) Final Date: 07 September 2021 09:22 S
--- NOTE | 2021-09-06 06:28 | PC.NURSE ---
SHIFT UPDATE Has continued to have low BP despite another 500ml bolus. Dr Zavala up to see pt and is now concerned about fluid overload. Lungs with some crackles. IV fluids were stopped. Is going to order some albumin and pt is transferring to ICU. Called to give report and nurse wanted to do bedside report when there.
--- NOTE | 2021-09-06 06:48 | PC.NURSE ---
TRANSFER TO ICU Transferred to ICU & report given to SHANICE RN. Pt alert and oriented. Sister Tiny notified of transfer
--- NOTE | 2021-09-06 06:53 | USCV_ITS ---
[facility] Age: 60 Gender: F : 1960 Exam Date: 09/06/2021 08:07 Ordering Phys: Ariana Zavala MD Technologist: Tani Gerard [place] [facility] [place]: ef rt heart pressure BP: 90 / 60 HR: 80 Rhythm: Sinus Technical Quality: Adequate MEASUREMENTS (Male / Female) Normal Values 2D ECHO LV Diastolic Diameter PLAX 5.1 cm 4.2 - 5.9 / 3.9 - 5.3 cm LV Systolic Diameter PLAX 3.6 cm IVS Diastolic Thickness 1.1 cm 0.6 - 1.0 / 0.6 - 0.9 cm IVS Systolic Thickness 1.5 cm LVPW Diastolic Thickness 1.0 cm 0.6 - 1.0 / 0.6 - 0.9 cm LVPW Systolic Thickness 1.5 cm LVOT Diameter 2.1 cm LV Ejection Fraction 2D Teich 56.5 % LV Ejection Fraction MOD 2C 64.0 % LV Ejection Fraction 2C AL 63.1 % LA Diameter 4.3 cm LA Width 3.7 cm LA Height 5.1 cm RA Width 3.2 cm RA Height 4.8 cm Aorta at Sinotubular Diameter 3.1 cm M-MODE LV Diastolic Diameter MM 5.9 cm 4.2 - 5.9 / 3.9 - 5.3 cm LV Systolic Diameter MM 4.0 cm LV Ejection Fraction MM Teich 58.1 % IVS Diastolic Thickness MM 1.0 cm 0.6 - 1.0 / 0.6 - 0.9 cm IVS Systolic Thickness MM 1.8 cm LVPW Diastolic Thickness MM 0.9 cm 0.6 - 1.0 / 0.6 - 0.9 cm LVPW Systolic Thickness MM 1.6 cm RV Diastolic Diameter MM 2.4 cm Aortic Annulus Diameter 3.5 cm LA Ao Ratio MM 1.3 MV E Point Septal Separation 1.3 cm DOPPLER AV Peak Velocity 144.0 cm/s LVOT Peak Velocity 120.0 cm/s AV Area Cont Eq vti 2.3 cm squared AV Area Cont Eq pk 2.9 cm squared MV Area PHT 5.0 cm squared Mitral E to A Ratio 0.9 MV E' Velocity 47.0 cm/s Mitral E to MV E' Ratio 10.6 Mitral E to LV E' Lateral Ratio 10.7 Mitral E to LV E' Septal Ratio 10.5 TR Peak Velocity 239.8 cm/s TR Peak Gradient 23.0 mmHg Right Atrial Pressure 3.0 mmHg Pulmonary Artery Systolic Pressu 26.0 mmHg PV Peak Velocity 131.0 cm/s FINDINGS Left Ventricle Left ventricle is mildly dilated. LV systolic function is normal with EF of 55-60%. No regional wall motion abnormalities. Right Ventricle Right ventricle is dilated and hypokinetic Right Atrium The right atrium is normal in size. Left Atrium The left atrium is normal in size. Mitral Valve Structurally normal mitral valve without significant stenosis or prolapse. There is no mitral regurgitation. Aortic Valve Structurally normal aortic valve without significant sclerosis or stenosis. There is no aortic regurgitation. Tricuspid Valve Structurally normal tricuspid valve without significant stenosis. Trace tricuspid regurgitation. Pulmonary artery systolic pressure is normal. Pulmonic Valve Not well visualized. Pericardium Normal pericardium without effusion. Aorta Normal ascending aorta dimension. IVC CONCLUSIONS Left ventricle is mildly dilated. LV systolic function is normal with EF of 55 to 60%. Right ventricle is dilated and hypokinetic Trace tricuspid regurgitation No comparison studies are available Edward Greene MD (Electronically Signed) Final Date: 06 September 2021 13:19 S
[2021-09-06] MEDS: albumin 12.5 GM/250 ML VIAL IV (07:09)
[2021-09-06] MEDS: enoxaparin 60 mg/0.6 mL Syringe SUBCUT (07:10)
[2021-09-06] MEDS: piperacillin-tazobactam 3.375 GM in sodium chloride 0.9% (plus) 50 ML IV ×3 (07:31→22:33)
[2021-09-06 07:38] LABS: Potassium, Radom Urine 80 mmol/L; Urine Creatinine 218 mg/dL (28-217)
[2021-09-06 08:22] LABS: Urine Random Chloride < 10 mmol/L; Urine Random Sodium 11 mmol/L
[2021-09-06] MEDS: budesonide 0.5 mg/2 mL Neb INHALATION ×2 (08:36→20:49)
[2021-09-06 08:37] LABS: Procalcitonin 8.96 ng/mL (0-0.5)
[2021-09-06 08:50] LABS: Lactic Acid level (Lactate) 2.2 mmol/L (0.5-2.2)
[2021-09-06] MEDS: FUROsemide 10 mg/mL SDV 4mL 40 MG IVP (08:55)
[2021-09-06] MEDS: FUROsemide 10 mg/mL SDV 2mL 20 MG IVP ×2 (08:55→08:59)
[2021-09-06] MEDS: azithromycin 250 mg Tablet 500 MG PO (08:59)
[2021-09-06] MEDS: pantoprazole DR 40 mg Tablet PO (08:59)
[2021-09-06] MEDS: vancomycin 1,250 MG/250 ML PIGGYBACK 200 MG IV (09:00)
[2021-09-06] MEDS: allopurinol 100 mg Tablet PO (09:00)
[2021-09-06] MEDS: sertraline 100 mg Tablet PO (09:00)
[2021-09-06] MEDS: atorvastatin 40 mg Tablet PO (09:00)
--- NOTE | 2021-09-06 09:30 | PC.NURSE ---
Patient now feeling better, not as tired, states she is hungry, she is eating her breakfast and states it tastes very good.
--- NOTE | 2021-09-06 09:39 | PC.NURSE ---
Titrated patient's Levophed drip up to 4mcg/min.
--- NOTE | 2021-09-06 11:26 | PC.NURSE ---
Just titrated patient's Levophed drip up to 6 mcg/min, BP was 79/44.
--- NOTE | 2021-09-06 11:54 | PC.NURSE ---
Served patient lunch.
--- NOTE | 2021-09-06 12:45 | PC.NURSE ---
Patient ate 75-80% of her lunch, patient states she is a little tired, I adjusted her bed and put the head of the bed down so she could rest and watch TV.
[2021-09-06 20:25] LABS: Glucose Point of Care 231 mg/dL (70-110)
--- NOTE | 2021-09-06 21:25 | PM.MISC ---
Miscellaneous Note Note: Patient seen this morning and then again this evening. She is feeling much better. She received about 3 L of fluid, some albumin in addition to Levophed. Levophed as high as 8 today. Most recently down to 6. Positive urine output. Daughter in the room with her mother. Says her mother waited too long to come in. have held off on proceeding with CTA today since she has stabilized and looks so much better than she did. We will recheck renal function in the morning. No chest pain. Treatment dose Lovenox was administered. Ultrasound of the leg has been done and is pending. Echocardiogram completed but still pending read. Patient is on broad-spectrum antibiotics, multiple cultures pending. Will continue close monitoring in the ICU. Care reviewed with nursing staff.
[2021-09-06] MEDS: sodium chlor 0.45% +KCl 20 mEq 20 MEQ/1,000 ML BAG 50 MEQ IV (21:58)
[2021-09-06] MEDS: enoxaparin 120 mg/0.8 mL Syringe 110 MG SUBCUT (21:58)
[2021-09-07] VITALS (101 sets, daily range): BP systolic 85–141; BP diastolic 50–90; PULSE 64–97; RESP 15–29; TEMP 35.7–36.9; O2SAT 90–98
[2021-09-07] MEDS: ipratropium-albuterol 3 mL Neb INHALATION ×3 (02:49→20:19)
[2021-09-07 05:35] LABS: Basophils % 0.4 %; Eosinophils # 0.2 10^3/uL (0.0-0.8); Eosinophils % 2.5 %; Hematocrit 34.3 % (37.0-47.0); Hemoglobin 10.8 g/dL (11.5-15.3); Lymphocytes # 1.4 10^3/uL (0.8-4.8); Lymphocytes % 20.8 %; Mean Corpuscular HGB Conc 31.5 g/dL (30.0-36.0); Mean Corpuscular Hemoglobin 28.9 pg (28.0-34.0); Mean Corpuscular Volume 91.7 fl (81-99); Mean Platelet Volume 11.1 fL (7.4-10.4); Monocytes # 0.5 10^3/uL (0.2-0.9); Monocytes % 6.8 %; Neutrophils # 4.69 10^3/uL (1.8-7.7); Nucleated Red Blood Cells % 0 %; Platelet Count 164 10^3/cmm (130-400); Red Blood Count 3.74 10^6/uL (4.1-5.3); Red Cell Distribution Width 13.2 % (12.1-15.1); White Blood Count 6.9 10^3/uL (4.0-10.0)
[2021-09-07 05:43] LABS: INR 1.13 (0.8-1.2)
[2021-09-07 05:44] LABS: Partial Thromboplastin Time 34.9 SECONDS (23.9-36.7)
[2021-09-07 05:59] LABS: Slide Review Slide Review Perform
[2021-09-07 06:02] LABS: Magnesium 2.2 mg/dL (1.7-2.3); Phosphorus 2.4 mg/dL (2.5-4.5)
[2021-09-07 06:14] LABS: Estmated Average Glucose 108; Hemoglobin A1C 5.4 % (4.0-6.0)
--- NOTE | 2021-09-07 06:51 | PC.NURSE ---
Shift Summary Patient had an uneventful shift-remains alert/oriented x4 on 1LNC. No wounds or skin issues noted at this time. Sanchez catheter drained 3650 mls of urine overnight. Patient had no complaints of pain overnight.
[2021-09-07 08:07] LABS: Glucose Point of Care 142 mg/dL (70-110)
[2021-09-07] MEDS: piperacillin-tazobactam 3.375 GM in sodium chloride 0.9% (plus) 50 ML IV ×3 (08:12→23:15)
[2021-09-07] MEDS: pantoprazole DR 40 mg Tablet PO (08:13)
[2021-09-07] MEDS: sertraline 100 mg Tablet PO (08:13)
[2021-09-07] MEDS: allopurinol 100 mg Tablet PO (08:13)
[2021-09-07] MEDS: azithromycin 250 mg Tablet 500 MG PO (08:13)
[2021-09-07] MEDS: atorvastatin 40 mg Tablet PO (08:13)
[2021-09-07] MEDS: enoxaparin 120 mg/0.8 mL Syringe 110 MG SUBCUT (08:13)
[2021-09-07] MEDS: vancomycin 1,250 MG/250 ML PIGGYBACK 200 MG IV (08:14)
[2021-09-07] MEDS: insulin lispro 100 unit/1 mL SUBCUT ×4 (08:28→21:57)
[2021-09-07 08:35] LABS: Alanine Aminotransferase 7 U/L (0-33); Albumin Level 2.6 g/dL (3.5-5.2); Alkaline Phosphatase 117 IU/L (35-105); Aspartate Amino Transferase 10 U/L (0-32); Blood Urea Nitrogen 21 mg/dL (8-23); Calcium 8.6 mg/dL (8.5-10.5); Carbon Dioxide 21 mmol/L (22-29); Chloride 106 mmol/L (98-107); Globulin 3.6 g/dL (1.3-4.6); Glomerular Filtration Rate 50.3 mL/min (90-130); Glucose 155 mg/dL (65-115); Osmolality Calculated 296 mOsm/kg (285-295); Sodium 140 mmol/L (136-145); Total Bilirubin 0.5 mg/dL (0.15-1.2); Total Protein 6.2 g/dL (6.6-8.7)
[2021-09-07 08:47] LABS: Anion Gap 15.9 (5-19); Potassium 2.9 mmol/L (3.5-5.1)
--- NOTE | 2021-09-07 09:00 | CT_ITS ---
WS: [id number] CTA OF THE CHEST WITH PULMONARY EMBOLISM PROTOCOL TECHNIQUE: High-resolution contrast enhanced CTA of the chest with coronal and sagittal reformatted i magos with pulmonary embolism protocol. MIP images are also reviewed. CLINICAL INFORMATION: right ventrile stain on echo, hypexmia, shortness of breath COMPARISON: None. DLP: 675.[address] scans at [facility] use at least one of these dose optimization techniques: automated e xposure control; mA and/or kV adjustment per patient size (includes targeted exams where dose is matc hed to clinical indication); or iterative reconstruction. FINDINGS: Proximal main pulmonary arteries are normal. Normal segmental and subsegmental pulmonary arteries. No evidence of pulmonary embolus. Dense airspace consolidation involving the LEFT lower lobe with air bronchograms. Findings compatible with pneumonia. Fluid and secretions in the LEFT lower lobe bronchi. Recommend follow-up to resoluti on. Small amount of loculated pleural fluid peripherally. Bulky enlarged anterior mediastinal and per ibronchial lymph nodes. Subcarinal lymphadenopathy. Findings may be reactive but neoplasm not exclude d. RIGHT lung is well aerated. Hypertrophic changes thoracic spine. CT/CT angio chest PE protcl [id number] IMPRESSION: 1. Proximal main pulmonary arteries are normal. No evidence of pulmonary embol us. 2. Dense airspace consolidation involving the LEFT lower lobe with air broncho grams and a small amount of peripheral loculated pleural fluid. Findings compat ible with pneumonia. Recommend follow-up to resolution to exclude underlying ma lignancy. 3. Bulky Anterior mediastinal peribronchial and subcarinal lymphadenopathy. 4. RIGHT lung is well aerated. 5. Prior cholecystectomy. Notified Nellie Quezada MD at 09/07/2021 3:43 PM.
--- NOTE | 2021-09-07 09:42 | PC.CHAP ---
Pastoral Care Encounter/Spiritual Assessment Type of Contact [] Declined wind commissioning technician visit [] Patient/Family/Request visit [] Outpatient visit [] Follow-up visit [] Physician referral [] Code/Alert [x] Routine visit [] Staff referral [] Actively dying [] Patient sleeping [] Family support [] [] Out of room [] Palliative care [] [x] Receiving care in room [] Pre-surgical visit [] Trauma [] Long length of stay [x] ICU visit [] Other: Relational/Emotional Strength [] Patient feels connected with others/family/visitors/staff [] Distress [] Loneliness/isolation [] Abandonment Spirituality of Patient [] Person of Radha [] Attends Lutheran of their Radha [] Believes in Prayer [] Reads Bible or Islam materials [] There are Spiritual issues to be addressed Director Of Undergraduate Admissions Interventions [x] Prayer [] Active listening [] Non-anxious presence [] Spiritual/emotional support [] Crisis/trauma care [] Spiritual counseling [] Bereavement support [] Provided bereavement packet [] Provided Bible/devotional materials [] Provided toy/stuffed animal, coloring book to patient or family member [] Provided Communion [] Anointing/[place] [] Salvation [x] Completed spiritual assessment [] Other: Impact on Illness or Injury [] Angry [] Fearful [] Anxious [] Often cries [] Exhaustion [] Unable to work [] Unable to attend christian [] Unable to walk/stand [] Unable to read [] Unable to drive [] Unable to eat/drink [] Unable to sleep [] Unable to be with family [] Patient intubated [] Other: Summary Time spent with patient
[2021-09-07] MEDS: budesonide 0.5 mg/2 mL Neb INHALATION ×2 (09:49→20:19)
[2021-09-07 10:09] LABS: Cortisol Random 8.57 ug/dL (2.47-19.5)
[2021-09-07] MEDS: potassium chloride ER 20 mEq Tablet 40 MEQ PO (10:43)
[2021-09-07 11:10] LABS: Glucose Point of Care 231 mg/dL (70-110)
--- NOTE | 2021-09-07 11:38 | PC.NURSE ---
manual BP cuff at 1130 was 120/68. Levophed running at 4mcg/min
--- NOTE | 2021-09-07 13:06 | PM.PN ---
Subjective Subjective: Seen this morning. Patient is resting comfortably in bed still on Levophed 4 mics. Denies chest pain. She states she does get short of breath from time to time and used to be on home oxygen however she stopped using it when she lost her job. She states she is unsure if she was ever desaturating. She does have COPD but has never seen a drop wire builder. Does have inhalers at home that she uses. She does state that her lower extremities do swell up from time to time and she has been on Lasix for that. She was never told that her right ventricle was hypokinetic or not functioning. She states this is new diagnosis for her. She does not have any history of PE or DVT before. Patient denies ever having any pulmonary function test done. Vitals/I&O/Wt Last Vital Signs Temp 96.3 F L 09/07/21 08:00 Pulse 85 09/07/21 09:54 Resp 18 09/07/21 09:50 BP 111/72 09/07/21 08:45 Pulse Ox 96 09/07/21 09:50 09/06/21 09/07/21 09/07/21 22:59 06:59 14:59 Intake Total 183.985 / 2233.985 1250 / 3483.985 614.000 / 614.000 Output Total 1750 / 2100 3650 / 5750 Balance -1566.015 / 133.985 -2400 / -2266.015 614.000 / 614.000 Weight last 48 hrs Weight 108.862 kg Weight 108.862 kg Physical Exam Narrative: General: Alert oriented x3, patient seen laying flat in bed appearing comfortable on 3 L nasal cannula. No acute distress, not hypoxic no conversational dyspnea. HEENT: Normocephalic, atraumatic, EOMI, breathing normally with normal respiratory effort on 3 L nasal cannula. Cardio: Regular rate rhythm, normal S1-S2, no murmurs Respiratory: Good bilateral air entry, no wheezes no rhonchi appreciated GI: Abdomen soft, nontender, nondistended, bowel sounds + Behavior: Appropriate and cooperative Extremities: 1+ pitting edema bilateral lower extremities, no cyanosis Urinary Catheter Management: Sanchez: Cath Placed During This Visit: yes Reason for Continuing Indwelling Catheter: Accurate Measurement of Urinary Output in Critically Ill Patients Urinary Catheter Date of Insertion: 09/06/21 Urinary Catheter Time of Insertion: 07:27 Data : 09/07/21 05:10 09/07/21 05:10 Micro: Microbiology 09/05/21 22:50 Blood Culture - Preliminary Blood NEGATIVE TO DATE 09/05/21 22:45 Blood Culture - Preliminary Blood NEGATIVE TO DATE 09/06/21 07:15 MRSA Culture - Final Nose 09/06/21 03:45 Legionella Urinary Antigen - Final Urine,Voided Bacterial Antigens - Final A&P Assessment and plan (1) YOLANDA (acute kidney injury): Status: Acute (2) Community acquired pneumonia: Status: Acute (3) Acute respiratory failure with hypoxia: Status: Acute (4) COPD (chronic obstructive pulmonary disease): Status: Acute Qualifiers: COPD type: unspecified COPD Qualified Code(s): J44.9 - Chronic obstructive pulmonary disease, unspecified (5) Right heart failure: Status: Acute (6) Suspected pulmonary embolism: Status: Acute Plan #Community-acquired pneumonia #Acute hypoxic respiratory failure #COPD #Obstructive sleep apnea #Suspected pulmonary embolism #Right-sided heart failure, hypokinetic right ventricle #Acute kidney injury, most likely pre-renal cause #Hypokalemia #Hypophosphatemia - Continue vancomycin and zosyn, azithromycin - Bacterial Ag, MRSA nares, Bcx NTD, Delta trop negative - Check cortisol - Hydrocortisone 100 mg x1 followed by 50 mg Q6H for stress dose steroid - Wean off levophed - Dimer elevated. Check CTA today. Cr. 1.1 today - Lovenox 110 BID to be continued - Delta Trop negative. EKG non-ischemic - Unsure if RHF new finding vs. old however pt was on diuretics prior to hospital admission. Patient unable to state why on diuretics. May benefit from RH cath to rule out pulmonary hypertension. Pulm follow up at nd for formal PFT - YOLANDA improving - Continue gentle hydration. - Insulin SSI - Hold Klonopin. - Continue pulmicort inh bid, zoloft 100 daily, duoneb Full Code DVT PPX: On full dose lovenox Attestations Medical Necessity Statement*: Critically ill in ICU. On vasopressor support Coding Level of Care Code Acute Sound Ranging Crewmember for g Fwd Diagnoses YOLANDA (acute kidney injury) N17.9 Community acquired pneumonia J18.9 Acute respiratory failure with hypoxia J96.01 COPD (chronic obstructive pulmonary disease) J44.9 COPD type: unspecified COPD Right heart failure I50.810 Suspected pulmonary embolism R09.89
[2021-09-07] MEDS: hydrocortisone 100 mg/2 mL SDV 50 MG IVP ×2 (14:08→20:02)
[2021-09-07] MEDS: hydrocortisone 100 mg/2 mL SDV IVP (14:08)
[2021-09-07 17:39] LABS: Glucose Point of Care 201 mg/dL (70-110)
[2021-09-07] MEDS: sodium chlor 0.45% +KCl 20 mEq 20 MEQ/1,000 ML BAG 50 MEQ IV (18:28)
--- NOTE | 2021-09-07 18:45 | PC.NURSE ---
Pt has been resting in room this shift. She was taken to CT via wheelchair and tolerated well. Levophed was titrated off at 1800. Urine sample sent to lab.
[2021-09-07 19:31] LABS: Urine Random Sodium 24 mmol/L
[2021-09-07 20:08] LABS: Add Urine Culture? Yes; Add Urine Microscopic? YES; Bacteria Urine 1+ /hpf; Bilirubin Urine Neg (Negative); Blood Urine 2+ (Negative); Glucose Urine UA Norm (Normal); Ketones Urine Negative (Negative); Leukocyte Esterase Urine Negative (Negative); Nitrate Urine Negative (Negative); Protein Urine Neg (Negative); RBC Urine 0-4 /hpf (0-2); Squamous Epithelial Cell Urine 0-4 /hpf (0-5); Urine Appearance Clear (CLEAR); Urine Color Yellow (Yellow); Urobilinogen Urine Norm (Negative); WBC Urine 0-4 /hpf (0-5); pH Urine 6 (5-7)
[2021-09-07 22:00] LABS: Glucose Point of Care 192 mg/dL (70-110)
[2021-09-08] VITALS (52 sets, daily range): BP systolic 101–132; BP diastolic 56–87; PULSE 57–95; RESP 12–24; TEMP 36.6–37; O2SAT 91–99
[2021-09-08] MEDS: hydrocortisone 100 mg/2 mL SDV 50 MG IVP ×2 (01:02→06:17)
[2021-09-08] MEDS: ipratropium-albuterol 3 mL Neb INHALATION ×4 (02:43→20:54)
--- NOTE | 2021-09-08 05:05 | PC.NURSE ---
Shift Summary Patient had an uneventful shift-remains alert/oriented x4 on room air, no wounds/skin issues noted at this time. Sanchez catheter drained 1800 mls of urine overnight. IVF infusing please see MAR for details.
--- NOTE | 2021-09-08 07:26 | P.CONIM_ITS ---
Providers/Reason For Consult Consulting Physician/Specialty*: Raz Raymond MD / Pulmonary Critical Care Reason for Consult*: septic shock on pressors - with hypokinetic and dilated right ventricle Requesting Physician: Jaycee Reynaga MD Attending Physician: Jaycee Reynaga MD Primary Care Provider: RICHAR Hawk History of Present Illness History of Present Illness Kavin Robb is a 60 year old female with PMH asthma, COPD, DIAZ, morbid obesity with BMI 40, hypertension, diabetes, GERD presented to ER with generalized fatigue, malaise, productive cough and worsening dyspnea over 4 to 5 days. On admission she was requiring 3 L nasal cannula. She was on inhalers for her COPD, Lasix but did not take in last 4 to 5 days. She complained of left-sided chest pain, worsened by movement and deep breathing, nonradiating 5 to 6 / 10 in intensity. Chest x-ray showed left lower lobe pneumonia, ABG with hypoxia, hypotension. Patient received 2 L of fluid bolus with no improvement in blood pressure, started on pressors and moved to ICU for septic shock. Initially CTA was not performed due to creatinine 1.9. Antibiotic coverage expanded to vancomycin, Zosyn and azithromycin. Echocardiogram 09/06/2021 reported left ventricle mildly dilated, LV systolic function normal with EF 55 to 60%, RV is dilated and hypokinetic, trace tricuspid regurgitation. With dilated RV and hypokinetic dilated and hypokinetic RV there was some suspicion for PE being because of hypotension and so patient was started on full dose anticoagulation and a CTA was done once creatinine 1.2. There is no evidence of PE but there is dense airspace consolidation involving left lower lobe with air bronchograms and small amount of peripheral loculated pleural fluid findings compatible with pneumonia. There were bulky anterior mediastinal, peribronchial and subcarinal lymphadenopathy as well. Patient troponins were insignificant. Bilateral venous Doppler did not show any DVT. Patient was requiring Levophed 8 MCG/hour-down to 6 MCG/hour; she received hydrocortisone 100 Mg stat dose and 2 doses of hydrocortisone 50 mg. Pulmonary critical care consult requested for dilated and hypokinetic RV in a patient admitted with septic shock I have seen this patient once in pulmonary clinic in November 2020 for evaluation of asthma/COPD overlap syndrome. Patient failed to follow-up with work-up recommended. Seen patient today at bedside Now off pressors and her steroids reported she is feeling better than when she came in reported recently moving into new home where she was cleaning black mold and felt like she inhaled it. reported losing her job and so was unable to follow up as out pt Review of Systems General: Reports: 10 or more systems reviewed and unremarkable except in HPI and below Medications/Allergies Home Medications Medication Instructions Recorded Confirmed Last Taken Type albuterol sulfate 2.5 mg INHALATION TID PRN ml 12/19/19 09/06/21 01/08/21 History albuterol sulfate 90 mcg/actuation 2 puff INHALATION Q6H PRN 12/19/19 09/06/21 01/08/21 History aerosol inhaler (ProAir HFA) atenolol 100 mg tablet 50 mg PO DAILY 12/19/19 09/06/21 01/08/21 History atorvastatin 40 mg tablet 40 mg PO DAILY 12/19/19 09/06/21 01/08/21 History cetirizine 10 mg capsule 10 mg PO DAILY 12/19/19 09/06/21 01/08/21 History clonazepam 0.5 mg tablet 0.5 mg PO BID PRN 12/19/19 09/06/21 01/08/21 History ergocalciferol (vitamin D2) 1,250 1,250 mcg PO Q7D cap 12/19/19 09/06/21 01/08/21 History mcg (50,000 unit) capsule fluticasone 500 mcg-salmeterol 50 1 inh INHALATION BID 12/19/19 09/06/21 01/08/21 History mcg/dose blistr powdr for inhalation fluticasone propionate 50 1 spray INTRANASAL BID 12/19/19 09/06/21 01/08/21 History mcg/actuation nasal spray,suspension furosemide 40 mg tablet 40 mg PO BID 12/19/19 09/06/21 01/08/21 History ibuprofen 800 mg tablet 800 mg PO Q8H PRN 12/19/19 09/06/21 01/08/21 History montelukast 10 mg tablet 10 mg PO DAILY 12/19/19 09/06/21 01/08/21 History potassium chloride 20 mEq 20 meq PO DAILY 12/19/19 09/06/21 01/08/21 History tablet,extended release(part/cryst) (Klor-Con M) sertraline 100 mg tablet 100 mg PO BID 12/19/19 09/06/21 01/08/21 History allopurinol 100 mg tablet 100 mg PO DAILY 11/28/20 09/06/21 01/08/21 History metformin 500 mg tablet 500 mg PO BID 11/28/20 09/06/21 01/08/21 History cyanocobalamin (vitamin B-12) 1,000 mcg IM Q30D 09/06/21 09/06/21 Unknown History 1,000 mcg/mL injection solution Allergies Allergy/AdvReac Type Severity Reaction Status Date / Time oxycodone [From OxyContin] Allergy Mild itching Verified 04/30/21 10:25 metronidazole [From Flagyl] Allergy Unknown Verified 04/30/21 10:25 lisinopril AdvReac cough Verified 04/30/21 10:25 Current Medications Generic Name Dose Route Start Last Admin Trade Name Freq PRN Reason Stop Dose Admin Acetaminophen 650 mg 09/06/21 02:46 09/06/21 03:28 Acetaminophen 325 Mg Tablet PO 650 mg Q6H PRN Administration Mild/Mod Pain Or Temp >/= 101 Albuterol/Ipratropium 3 ml 09/06/21 03:00 09/08/21 02:43 Ipratropium-Albuterol 3 Ml Neb INHALATION 3 ml Q6H.RESP KENDALL Administration Allopurinol 100 mg 09/06/21 09:00 09/07/21 08:13 Allopurinol 100 Mg Tablet PO 100 mg DAILY KENDALL Administration Atorvastatin Calcium 40 mg 09/06/21 09:00 09/07/21 08:13 Atorvastatin 40 Mg Tablet PO 40 mg DAILY KENDALL Administration Azithromycin 500 mg 09/06/21 09:00 09/07/21 08:13 Azithromycin 250 Mg Tablet PO 500 mg DAILY KENDALL Administration Protocol Budesonide 0.5 mg 09/06/21 08:00 09/07/21 20:19 Budesonide 0.5 Mg/2 Ml Neb INHALATION 0.5 mg BID.RESPIRATORY KENDALL Administration Enoxaparin Sodium 40 mg 09/07/21 16:30 09/07/21 18:03 Enoxaparin 40 Mg/0.4 Ml Syringe SUBCUT Not Given Q24H KENDALL Piperacillin Sod/Tazobactam 50 mls @ 12.5 mls/hr 09/06/21 07:30 09/08/21 03:15 Sod 3.375 gm/ Sodium Chloride IV Infused Q8H KENDALL Infusion Protocol As Directed Vancomycin/PEG/NADA/Lysine/Water 1,250 mg in 250 mls @ 200 mls/hr 09/06/21 08:00 09/07/21 17:43 Vancocin IV Infused Q24H KENDALL Infusion Norepinephrine Bitartrate 4 mg 254 mls @ 0 mls/hr 09/06/21 07:05 09/07/21 18:30 / Dextrose IV 0 mcg/min .Q0M KENDALL 0 mls/hr Titration Protocol Per Protocol Potassium Chloride/Sodium Chloride 20 meq in 1,000 mls @ 50 mls/hr 09/06/21 21:45 09/07/21 18:28 Sodium Chlor 0.45% +Kcl 20 Meq IV 50 mls/hr .Q20H KENDALL Administration Insulin Human Lispro 0 unit 09/07/21 21:00 09/07/21 21:57 Insulin Lispro 100 Unit/1 Ml SUBCUT 2 unit BEDTIME KENDALL Administration Protocol Insulin Human Lispro 0 unit 09/07/21 08:00 09/07/21 18:28 Insulin Lispro 100 Unit/1 Ml SUBCUT 4 unit TIDWM KENDALL Administration Protocol Lanolin 1 applic 09/06/21 05:03 09/06/21 05:09 Lanolin Oint 7 Gm TOPICAL 1 tube PRN PRN Administration DRYNESS Pantoprazole Sodium 40 mg 09/06/21 09:00 09/07/21 08:[address] 40 Mg Tablet PO 40 mg DAILY KENDALL Administration Sertraline HCl 100 mg 09/06/21 09:00 09/07/21 08:13 Sertraline 100 Mg Tablet PO 100 mg DAILY KENDALL Administration PFSH Acute PFSH: Medical History Asthma Colon polyps COPD (chronic obstructive pulmonary disease) Gout Hypertension Sleep apnea Surgical History H/O colonoscopy (01/09/21) H/O total hysterectomy History of bladder surgery History of cholecystectomy History of surgical removal of ganglion cyst History of tubal ligation Social History Smoking and tobacco status: never smoked Second hand smoke exposure: No Vitals/I&O/Wt Last Vital Signs Temp 97.8 F 09/08/21 04:00 Pulse 58 L 09/08/21 06:00 Resp 12 09/08/21 05:00 BP 130/72 09/08/21 05:00 Pulse Ox 97 09/08/21 05:00 09/07/21 09/08/21 09/08/21 22:59 06:59 14:59 Intake Total 1437.668 / 2570.7589 1970 / 4540.7589 Output Total 1350 / 1350 1800 / 3150 Balance 87.668 / 1220.7589 170 / 1390.7589 Physical Exam Narrative: General: alert, NAD HEENT: conj clear, EOMI, PERRL, mmm, Neck: supple, no meningismus Heme: no cervical LAP Pulmonary: CTAB, no wheezing, rhonchi, crackles Cardiovascular: rrr, nl s1s2, no mrg Abdomen: soft, nt, nd, no r/g, bs+ Extremities: pulses +, no edema, no c/c : no CVA tenderness Skin: intact, no rash MSK: no back or neck pain Neurologic: grossly intact Urinary Catheter Management: Sanchez: Cath Placed During This Visit: yes Reason for Continuing Indwelling Catheter: Accurate Measurement of Urinary Output in Critically Ill Patients Urinary Catheter Date of Insertion: 09/06/21 Urinary Catheter Time of Insertion: 07:27 Data : 09/07/21 05:10 09/07/21 05:10 Other Labs: Radiology Impressions Chest X-Ray 09/05/21 21:13 IMPRESSION: Patchy pneumonia or aspiration in the left lung. Chest CTA 09/07/21 09:00 IMPRESSION: 1. Proximal main pulmonary arteries are normal. No evidence of pulmonary embolus. 2. Dense airspace consolidation involving the LEFT lower lobe with air bronchograms and a small amount of peripheral loculated pleural fluid. Findings compatible with pneumonia. Recommend follow-up to resolution to exclude underlying malignancy. 3. Bulky Anterior mediastinal peribronchial and subcarinal lymphadenopathy. 4. RIGHT lung is well aerated. 5. Prior cholecystectomy. Notified Nellie Quezada MD at 09/07/2021 3:43 PM. Laboratory Results WBC 6.9 10^3/uL (4.0-10.0) 09/07/21 05:10 RBC 3.74 10^6/uL (4.1-5.3) L 09/07/21 05:10 Hgb 10.8 g/dL (11.5-15.3) L 09/07/21 05:10 Hct 34.3 % (37.0-47.0) L 09/07/21 05:10 MCV 91.7 fl (81-99) 09/07/21 05:10 MCH 28.9 pg (28.0-34.0) 09/07/21 05:10 MCHC 31.5 g/dL (30.0-36.0) 09/07/21 05:10 RDW 13.2 % (12.1-15.1) 09/07/21 05:10 Plt Count 164 10^3/cmm (130-400) 09/07/21 05:10 MPV 11.1 fL (7.4-10.4) H 09/07/21 05:10 Neut % (Auto) 68.0 % 09/07/21 05:10 Lymph % (Auto) 20.8 % 09/07/21 05:10 [place] % (Auto) 6.8 % 09/07/21 05:10 Eos % (Auto) 2.5 % 09/07/21 05:10 Baso % (Auto) 0.4 % 09/07/21 05:10 Neut # (Auto) 4.69 10^3/uL (1.8-7.7) 09/07/21 05:10 Lymph # (Auto) 1.4 10^3/uL (0.8-4.8) 09/07/21 05:10 [place] # (Auto) 0.5 10^3/uL (0.2-0.9) 09/07/21 05:10 Eos # (Auto) 0.2 10^3/uL (0.0-0.8) 09/07/21 05:10 Baso # (Auto) 0.0 10^3/uL (0.0-0.1) 09/07/21 05:10 Nucleated RBC % (auto) 0 % 09/07/21 05:10 Total Counted 100 (0-100) 09/05/21 22:10 Atypical Lymphs % 0.0 % (0-5) 09/05/21 22:10 Absolute Neutrophils 7.1 10^3/cmm (1.4-6.5) H 09/05/21 22:10 Segmented Neutrophils 69 % 09/05/21 22:10 Abs Segm Neuts (Man) 5.3 10/cmm (1.6-7.1) 09/05/21 22:10 Band Neutrophils 23.0 % 09/05/21 22:10 Abs Band Neuts (Man) 1.8 10^3/cmm (0.0-1.2) H 09/05/21 22:10 Absolute Lymphocytes 0.5 10^3/cmm (1.2-3.4) L 09/05/21 22:10 Lymphocytes (Manual) 7 % 09/05/21 22:10 Monocytes (Manual) 1.0 % 09/05/21 22:10 Absolute Monocytes 0.1 10^3/cmm (0.1-0.6) 09/05/21 22:10 Eosinophils (Manual) 0 % 09/05/21 22:10 Absolute Eosinophils 0.0 10^3/cmm (0.0-0.7) 09/05/21 22:10 Basophils (Manual) 0.0 % 09/05/21 22:10 Absolute Basophils 0.0 10^3/cmm (0.0-0.2) 09/05/21 22:10 Nucleated RBCs # 0.0 /100WBC 09/07/21 05:10 Toxic Vacuolation 1+ H 09/05/21 22:10 Platelet Estimate Normal (Normal) 09/05/21 22:10 PT 14.80 SECONDS (12.1-14.9) 09/07/21 05:10 INR 1.13 (0.8-1.2) 09/07/21 05:10 APTT 34.9 SECONDS (23.9-36.7) 09/07/21 05:10 D-Dimer 1.20 ug/mIFEU (0-0.59) H 09/05/21 22:10 Specimen Type Arterial 09/05/21 21:28 Sample Site Radial, left 09/05/21 21:28 ABG pH 7.47 (7.35-7.45) H 09/05/21 21:28 ABG pCO2 30.5 mmHg (35-45) L 09/05/21 21:28 ABG pO2 77.1 mmHg (80.0-100.0) L 09/05/21 21:28 ABG HCO3 22.0 mmol/L (22-26) 09/05/21 21:28 ABG Base Excess -0.9 mmol/L (-2.0-2.0) 09/05/21 21:28 Fuad Test Pos 09/05/21 21:28 Hematocrit 37.7 % (37-47) 09/05/21 21:28 Hgb O2 Saturation 94.5 % (95-100) L 09/05/21 21:28 Carboxyhemoglobin 1.1 %THgb (0.4-20.1) 09/05/21 21:28 Methemoglobin 1.0 % (0.4-1.5) 09/05/21 21:28 Total Hemoglobin 12.3 g/dL (12-16) 09/05/21 21:28 O2 Delivery Device Nc 09/05/21 21:28 O2 Liters/Min 2.5 % 09/05/21 21:28 Superintendent Maintenance ID [place] 09/05/21 21:28 Sodium 140 mmol/L (136-145) 09/07/21 05:10 Potassium 2.9 mmol/L (3.5-5.1) L 09/07/21 05:10 Chloride 106 mmol/L (98-107) 09/07/21 05:10 Carbon Dioxide 21 mmol/L (22-29) L 09/07/21 05:10 Anion Gap 15.9 (5-19) 09/07/21 05:10 BUN 21 mg/dL (8-23) 09/07/21 05:10 Creatinine 1.1 mg/dL (0.5-0.9) H 09/07/21 05:10 GFR Calculation 50.3 mL/min (90-130) L 09/07/21 05:10 Glucose 155 mg/dL (65-115) H 09/07/21 05:10 POC Glucose 192 mg/dL (70-110) H 09/07/21 21:53 Estimat Average Glucose 108 09/07/21 05:10 Hemoglobin A1c 5.4 % (4.0-6.0) 09/07/21 05:10 Calculated Osmolality 296 mOsm/kg (285-295) H 09/07/21 05:10 Lactic Acid 2.5 mmol/L (0.5-2.2) H 09/05/21 22:10 Lactic Acid (Sepsis) 2.2 mmol/L (0.5-2.2) 09/06/21 08:21 Calcium 8.6 mg/dL (8.5-10.5) 09/07/21 05:10 Phosphorus 2.4 mg/dL (2.5-4.5) L 09/07/21 05:10 Magnesium 2.2 mg/dL (1.7-2.3) 09/07/21 05:10 Total Bilirubin 0.5 mg/dL (0.15-1.2) 09/07/21 05:10 AST 10 U/L (0-32) 09/07/21 05:10 ALT 7 U/L (0-33) 09/07/21 05:10 Alkaline Phosphatase 117 IU/L (35-105) H 09/07/21 05:10 Troponin T Baseline 6 ng/L (0-10) 09/05/21 22:10 Troponin T 120 Minute 6.00 ng/L (0-10) 09/06/21 00:10 Delta Troponin T 0 ABS# (0-10) 09/06/21 00:10 Troponin T Hi Sens 6Hr 6.35 ng/L (0-10) 09/06/21 04:18 Troponin T Hi Sens 6Hr Delta 0.35 ng/L (0-12) 09/06/21 04:18 NT-Pro-B Natriuret Pep 1349 pg/mL (0-125) H 09/05/21 22:10 Total Protein 6.2 g/dL (6.6-8.7) L 09/07/21 05:10 Albumin 2.6 g/dL (3.5-5.2) L 09/07/21 05:10 Globulin 3.6 g/dL (1.3-4.6) 09/07/21 05:10 Procalcitonin 8.96 ng/mL (0-0.5) H 09/06/21 04:18 Random Cortisol 8.57 ug/dL (2.47-19.5) 09/07/21 05:10 Urine Color Yellow (Yellow) 09/07/21 18:40 Urine Appearance Clear (CLEAR) 09/07/21 18:40 Urine pH 6 (5-7) 09/07/21 18:40 Ur Specific [place] 1.000 (1.005-1.030) L 09/07/21 18:40 Urine Protein Neg (Negative) 09/07/21 18:40 Urine Glucose (UA) Norm (Normal) 09/07/21 18:40 Urine Ketones Negative (Negative) 09/07/21 18:40 Urine Blood 2+ (Negative) H 09/07/21 18:40 Urine Nitrate Negative (Negative) 09/07/21 18:40 Urine Bilirubin Neg (Negative) 09/07/21 18:40 Urine Urobilinogen Norm mg/dL (Negative) 09/07/21 18:40 Ur Leukocyte Esterase Negative (Negative) 09/07/21 18:40 Urine RBC 0-4 /hpf (0-2) H 09/07/21 18:40 Urine WBC 0-4 /hpf (0-5) H 09/07/21 18:40 Ur Squamous Epith Cells 0-4 /hpf (0-5) H 09/07/21 18:40 Amorphous Sediment Not Reportable 09/07/21 18:40 Urine Bacteria 1+ /hpf (NONE) H 09/07/21 18:40 Ur Random Sodium 24 mmol/L 09/07/21 18:40 Ur Random Potassium 80 mmol/L 09/06/21 07:15 Ur Random Chloride < 10 mmol/L 09/06/21 07:15 Urine Creatinine 218 mg/dL (28-217) H 09/06/21 07:15 Coronavirus 229E (PCR) Not detected (NOT DETECT) 09/05/21 22:16 SARS-CoV-2 (PCR) Not detected (NOT DETECT) 09/05/21 22:16 A&P Assessment and plan (1) Septic shock: Status: Acute (2) Acute respiratory failure with hypoxia: Status: Acute (3) Right heart failure: Status: Acute (4) Community acquired pneumonia: Status: Acute (5) COPD (chronic obstructive pulmonary disease): Status: Acute Qualifiers: COPD type: unspecified COPD Qualified Code(s): J44.9 - Chronic obstructive pulmonary disease, unspecified (6) Asthma: Status: Acute Qualifiers: Asthma complication type: uncomplicated Asthma persistence: intermittent Asthma severity: mild Qualified Code(s): J45.20 - Mild intermittent asthma, uncomplicated (7) Obesity (BMI 30-39.9): Status: Acute (8) YOLANDA (acute kidney injury): Status: Acute Plan #Septic shock secondary to underlying pneumonia -CT evidence of left lower lobe consolidation with air bronchograms, high procalcitonin, worsening shortness of breath with oxygen requirement -Currently on vancomycin and Zosyn -MRSA nares negative -can discontinue vancomycin and azithromycin; continue Zosyn -Bacterial antigens negative, urine Legionella negative, blood cultures negative so far,-please send for sputum culture -Currently off pressors and currently requiring 2.5 L supplemental oxygen -she can be transferred to floor #Dilated RV and hypokinetic on echocardiogram-possibly due to underlying sepsis; CTA/bilateral venous Doppler ruled out PE/DVT; negative troponins #Underlying asthma, DIAZ-causing pulmonary artery hypertension #Previously reported having asthma exacerbation after exposure to paint in 2018- suspect intrinsic asthma -Due to tricuspid regurg-there is insufficient TR velocity to calculate actual pulmonary artery pressures on echocardiogram -She needs home O2 evaluation on discharge -She needs pulmonary function tests as outpatient -Recommended to use advair 500-50 MCG 1 inhalation twice daily and follow-up in pulmonary clinic for further adjustment of steroids and work-up for allergic asthma -She was once CPAP with 2 L oxygen for her DIAZ-recommended to remain compliant -Given history of bilateral hand stiffness and family history of rheumatoid arthritis-she needs work-up for connective tissue diseases #YOLANDA secondary to prerenal due to septic shock - improving - maintain MAP > 65 -Closely monitor urine out put, renal functions and electrolytes; she also received contrast for CTA recently -Patient is making good urine-try to keep her net negative to even balance -Treat underlying sepsis - maintain electrolytes K > 3.5 and mg > 2 ICU CHECKLIST: Problem list updated Verbal orders reviewed and signed Analgesia: NA Glycemic Control: Scale coverage Nutrition: Cardiac diet Restraint Renewal (within 24 hrs): NA Ulcer Prophylaxis: PPI Chemical Thromboprophylaxis: Prophylaxis: Lovenox Mechanical Thromboprophylaxis: NA Need for Central line:NA Need for Sanchez catheter:For In put out monitoring Ventilator bundle:NA Critical Care Time (No Overlap): 45 min This patient has a high probability of sudden, clinically significant deterio ration, which requires the highest level of physician preparedness to intervene urgently. I managed/supervised life or organ supporting interventions that required frequent physician assessment. I devoted my full attention in the ICU to the direct care of this patient for the period of time indicated above. Time I spent with family or surrogate(s) is included only if the patient was incapable of providing necessary information or participating in decision making. Time devoted to teaching and to any procedures I billed separately is not included. Services Provided: Telemetry review Mechanical Ventilation Hemodynamic interpretation, assessment and management Review and interpretation of CXR Review and interpretation of lab values Review and interpretation of microbiologic data and culture results Review of medications and administration Review and interpretation of Nutrition requirements and management Discussion of management with other consultants and services Clinical update to family members Consult Attestations Medical Necessity Statement: septic shock due to pneumonia Time Spent in Patient Care: Greater than 35 minutes (>than 50% of time spent in counselling and/or direct pt care on unit) . Critical Care Time: The high probability of a clinically significant, sudden or life threatening deterioration of the patient's [pulmonary , renal, caridac] system(s) required my full and direct attention, intervention and personal management. The critical care time is as shown. This time is in addition to time spent performing any reported procedures but includes the following: [x] Data and vital sign review and interpretation [x] Patient assessment, examination and intervention [x] Documentation [x] Medication orders and management Critical Care Time (min): 55 Coding Level of Care Code New Pt Acute Specialty Department Supervisor for Chg Fwd Patient Type New Medical Decision Making High Complexity Diagnoses Right heart failure I50.810 Acute respiratory failure with hypoxia J96.01 Community acquired pneumonia J18.9 COPD (chronic obstructive pulmonary disease) J44.9 COPD type: unspecified COPD Asthma J45.20 Asthma complication type: uncomplicated Asthma persistence: intermittent Asthma severity: mild Septic shock A41.9; R65.21 Obesity (BMI 30-39.9) E66.9 YOLANDA (acute kidney injury) N17.9 Time Spent (min) 55
[2021-09-08] MEDS: budesonide 0.5 mg/2 mL Neb INHALATION ×2 (08:13→20:54)
[2021-09-08 08:26] LABS: Vancomycin Trough < 4.0 ug/mL (10-15)
[2021-09-08] MEDS: atorvastatin 40 mg Tablet PO (09:10)
[2021-09-08] MEDS: vancomycin 1,250 MG/250 ML PIGGYBACK 250 MG IV (09:10)
[2021-09-08] MEDS: azithromycin 250 mg Tablet 500 MG PO (09:10)
[2021-09-08] MEDS: sertraline 100 mg Tablet PO (09:10)
[2021-09-08] MEDS: allopurinol 100 mg Tablet PO (09:10)
[2021-09-08] MEDS: pantoprazole DR 40 mg Tablet PO (09:10)
[2021-09-08] MEDS: piperacillin-tazobactam 3.375 GM in sodium chloride 0.9% (plus) 50 ML IV ×3 (09:11→23:09)
--- NOTE | 2021-09-08 10:33 | PC.CHAP ---
Pastoral Care Encounter/Spiritual Assessment Type of Contact [] Declined tube draw helper visit [] Patient/Family/Request visit [] Outpatient visit [] Follow-up visit [] Physician referral [] Code/Alert [x] Routine visit [] Staff referral [] Actively dying [] Patient sleeping [] Family support [] [] Out of room [] Palliative care [] [x] Receiving care in room [] Pre-surgical visit [] Trauma [] Long length of stay [x] ICU visit [] Other: Relational/Emotional Strength [] Patient feels connected with others/family/visitors/staff [] Distress [] Loneliness/isolation [] Abandonment Spirituality of Patient [] Person of Radha [] Attends Bahai of their Radha [] Believes in Prayer [] Reads Bible or Orthodox materials [] There are Spiritual issues to be addressed Service Sprinkler Helper Interventions [x] Prayer [] Active listening [] Non-anxious presence [] Spiritual/emotional support [] Crisis/trauma care [] Spiritual counseling [] Bereavement support [] Provided bereavement packet [] Provided Bible/devotional materials [] Provided toy/stuffed animal, coloring book to patient or family member [] Provided Communion [] Anointing/[place] [] Salvation [x] Completed spiritual assessment [] Other: Impact on Illness or Injury [] Angry [] Fearful [] Anxious [] Often cries [] Exhaustion [] Unable to work [] Unable to attend methodist [] Unable to walk/stand [] Unable to read [] Unable to drive [] Unable to eat/drink [] Unable to sleep [] Unable to be with family [] Patient intubated [] Other: Summary Time spent with patient
[2021-09-08 11:24] LABS: Glucose Point of Care 163 mg/dL (70-110)
[2021-09-08 11:40] LABS: Basophils % 0.2 %; Eosinophils % 0.2 %; Hematocrit 29.5 % (37.0-47.0); Hemoglobin 9.7 g/dL (11.5-15.3); Lymphocytes # 0.8 10^3/uL (0.8-4.8); Lymphocytes % 16.7 %; Mean Corpuscular HGB Conc 32.9 g/dL (30.0-36.0); Mean Corpuscular Volume 88.3 fl (81-99); Mean Platelet Volume 10.8 fL (7.4-10.4); Monocytes # 0.4 10^3/uL (0.2-0.9); Neutrophils # 3.45 10^3/uL (1.8-7.7); Neutrophils % 69.5 %; Nucleated Red Blood Cells % 0 %; Platelet Count 179 10^3/cmm (130-400); Red Blood Count 3.34 10^6/uL (4.1-5.3); Red Cell Distribution Width 13.2 % (12.1-15.1)
[2021-09-08 12:09] LABS: Alanine Aminotransferase 7 U/L (0-33); Albumin Level 2.6 g/dL (3.5-5.2); Alkaline Phosphatase 106 IU/L (35-105); Anion Gap 14.8 (5-19); Aspartate Amino Transferase 8 U/L (0-32); Blood Urea Nitrogen 13 mg/dL (8-23); Calcium 8.6 mg/dL (8.5-10.5); Carbon Dioxide 20 mmol/L (22-29); Chloride 107 mmol/L (98-107); Globulin 2.9 g/dL (1.3-4.6); Glomerular Filtration Rate 101.3 mL/min (90-130); Glucose 177 mg/dL (65-115); Magnesium 1.9 mg/dL (1.7-2.3); Osmolality Calculated 290 mOsm/kg (285-295); Potassium 3.8 mmol/L (3.5-5.1); Sodium 138 mmol/L (136-145); Total Bilirubin 0.2 mg/dL (0.15-1.2); Total Protein 5.5 g/dL (6.6-8.7)
[2021-09-08 12:42] LABS: Slide Review Slide Review Perform
--- NOTE | 2021-09-08 15:48 | P.PN_ITS ---
Subjective Subjective: Seen this morning.?. Pt is off pressors. She will be seen by pulm today. Vitals/I&O/Wt Last Vital Signs Temp 97.8 F 09/08/21 12:00 Pulse 71 09/08/21 14:22 Resp 16 09/08/21 14:22 BP 130/72 09/08/21 12:00 Pulse Ox 97 09/08/21 14:22 09/08/21 09/08/21 09/08/21 06:59 14:59 22:59 Intake Total 1970 / 4540.7589 500 / 500 1300 / 1800 Output Total 1800 / 3150 1800 / 1800 Balance 170 / 1390.7589 -1300 / -1300 1300 / 0 Physical Exam Narrative: General: Alert oriented x3, patient seen laying flat in bed appearing comfortable on 3 L nasal cannula.? No acute distress, not hypoxic no conversational dyspnea. HEENT: Normocephalic, atraumatic, EOMI, breathing normally with normal respiratory effort on 3 L nasal cannula. Cardio: Regular rate rhythm, normal S1-S2, no murmurs Respiratory: Good bilateral air entry, no wheezes no rhonchi appreciated GI: Abdomen soft, nontender, nondistended, bowel sounds + Behavior: Appropriate and cooperative Extremities: 1+ pitting edema bilateral lower extremities, no cyanosis Urinary Catheter Management: Sanchez: Cath Placed During This Visit: yes Reason for Continuing Indwelling Catheter: Accurate Measurement of Urinary Output in Critically Ill Patients Urinary Catheter Date of Insertion: 09/06/21 Urinary Catheter Time of Insertion: 07:27 Data : 09/08/21 11:10 09/08/21 11:10 A&P Assessment and plan (1) Obesity (BMI 30-39.9): Status: Acute (2) Septic shock: Status: Acute (3) Suspected pulmonary embolism: Status: Acute (4) Right heart failure: Status: Acute (5) YOLANDA (acute kidney injury): Status: Acute (6) Acute respiratory failure with hypoxia: Status: Acute (7) Community acquired pneumonia: Status: Acute (8) COPD (chronic obstructive pulmonary disease): Status: Acute Qualifiers: COPD type: unspecified COPD Qualified Code(s): J44.9 - Chronic obstructive pulmonary disease, unspecified (9) Stiffness of joints of both hands: Status: Acute (10) Asthma: Status: Acute Qualifiers: Asthma severity: mild Asthma persistence: intermittent Asthma c omplication type: uncomplicated Qualified Code(s): J45.20 - Mild intermittent asthma, uncomplicated Plan #Septic shock 2/2 Community-acquired pneumonia #Acute hypoxic respiratory failure #COPD #Obstructive sleep apnea #Suspected pulmonary embolism #Right-sided heart failure, hypokinetic right ventricle #Acute kidney injury, most likely pre-renal cause #Hypokalemia #Hypophosphatemia - Continue zosyn, azithromycin. CA vanco. - Bacterial Ag negative, MRSA nares negative, Bcx NTD, Delta trop negative - Cortisol 8.47 - s/p Hydrocortisone 100 mg x1 followed by 50 mg Q6H for stress dose steroid - levophed off. COntinue to monitor blood pressure - Dimer elevated. CTA ruled out PE. Pulm consulted. Cr. 1.1 today - Lovenox 110 BID to be discontinued - Delta Trop negative. EKG non-ischemic - Unsure if RHF new finding vs. old however pt was on diuretics prior to hospital admission. Patient unable to state why on diuretics. May benefit from RH cath to rule out pulmonary hypertension. [place]. - YOLANDA improving - Continue gentle hydration. - Insulin SSI - Hold Klonopin. - Continue pulmicort inh bid, zoloft 100 daily, duoneb Full Code DVT PPX: lovenox Attestations Medical Necessity Statement*: Continue to monitor blood pressure and IV antibiotics. Will need continued hospitalization for 24-48 hours. Coding Level of Care Code Acute Garland Maker for [facility] Fwd Diagnoses Obesity (BMI 30-39.9) E66.9 Septic shock A41.9; R65.21 Suspected pulmonary embolism R09.89 Right heart failure I50.810 YOLANDA (acute kidney injury) N17.9 Acute respiratory failure with hypoxia J96.01 Community acquired pneumonia J18.9 COPD (chronic obstructive pulmonary disease) J44.9 COPD type: unspecified COPD Stiffness of joints of both hands M25.641; M25.642 Asthma J45.20 Asthma severity: mild Asthma persistence: intermittent Asthma complication type: uncomplicated
[2021-09-08] MEDS: enoxaparin 40 mg/0.4 mL Syringe SUBCUT (16:49)
[2021-09-08 16:53] LABS: Osmolality Serum 293 mOsm/kg (278-305)
[2021-09-08 17:08] LABS: Glucose Point of Care 111 mg/dL (70-110)
[2021-09-08 20:24] LABS: Glucose Point of Care 143 mg/dL (70-110)
[2021-09-08] MEDS: insulin lispro 100 unit/1 mL SUBCUT (20:26)
[2021-09-08] MEDS: vancomycin 1,250 MG/250 ML PIGGYBACK 200 MG IV (20:26)
[2021-09-09] VITALS (78 sets, daily range): BP systolic 92–135; BP diastolic 55–93; PULSE 63–111; RESP 13–29; TEMP 36.9–37.1; O2SAT 91–97
[2021-09-09] MEDS: ipratropium-albuterol 3 mL Neb INHALATION ×4 (02:47→20:56)
[2021-09-09 07:15] LABS: Glucose Point of Care 91 mg/dL (70-110)
[2021-09-09] MEDS: pantoprazole DR 40 mg Tablet PO (08:43)
[2021-09-09] MEDS: allopurinol 100 mg Tablet PO (08:43)
[2021-09-09] MEDS: atorvastatin 40 mg Tablet PO (08:43)
[2021-09-09] MEDS: sertraline 100 mg Tablet PO (08:43)
[2021-09-09] MEDS: azithromycin 250 mg Tablet 500 MG PO (08:43)
[2021-09-09] MEDS: vancomycin 1,250 MG/250 ML PIGGYBACK 200 MG IV (08:44)
[2021-09-09] MEDS: budesonide 0.5 mg/2 mL Neb INHALATION ×2 (08:57→20:56)
--- NOTE | 2021-09-09 10:50 | PC.CHAP ---
Pastoral Care Encounter/Spiritual Assessment Type of Contact [] Declined asphalt raker visit [] Patient/Family/Request visit [] Outpatient visit [] Follow-up visit [] Physician referral [] Code/Alert [x] Routine visit [] Staff referral [] Actively dying [] Patient sleeping [] Family support [] [] Out of room [] Palliative care [] [] Receiving care in room [] Pre-surgical visit [] Trauma [] Long length of stay [x] ICU visit [] Other: Relational/Emotional Strength [] Patient feels connected with others/family/visitors/staff [] Distress [] Loneliness/isolation [] Abandonment Spirituality of Patient [] Person of Radha [] Attends Gnosticism of their Radha [] Believes in Prayer [] Reads Bible or Orthodox materials [] There are Spiritual issues to be addressed Executive Chairman Interventions [x] Prayer [x] Active listening [x] Non-anxious presence [x] Spiritual/emotional support [] Crisis/trauma care [] Spiritual counseling [] Bereavement support [] Provided bereavement packet [] Provided Bible/devotional materials [] Provided toy/stuffed animal, coloring book to patient or family member [] Provided Communion [] Anointing/[place] [] Salvation [x] Completed spiritual assessment [] Other: Impact on Illness or Injury [] Angry [] Fearful [] Anxious [] Often cries [] Exhaustion [] Unable to work [] Unable to attend synagogue [] Unable to walk/stand [] Unable to read [] Unable to drive [] Unable to eat/drink [] Unable to sleep [] Unable to be with family [] Patient intubated [] Other: Summary patient feeling so much better today..... Time spent with patient
[2021-09-09 11:33] LABS: Glucose Point of Care 105 mg/dL (70-110)
[2021-09-09] MEDS: piperacillin-tazobactam 3.375 GM in sodium chloride 0.9% (plus) 50 ML IV (11:52)
--- NOTE | 2021-09-09 11:55 | PM.PN ---
Subjective Subjective: Seen this morning. Blood pressure stayed stable overnight. Patient was seen by pulmonology yesterday. Recommend outpatient follow-up with further testing. She states she feels better. Still on 2 L nasal cannula. Vitals/I&O/Wt Last Vital Signs Temp 98.5 F 09/09/21 08:00 Pulse 82 09/09/21 09:06 Resp 17 09/09/21 08:57 BP 122/65 09/09/21 08:00 Pulse Ox 95 09/09/21 08:57 09/08/21 09/09/21 09/09/21 22:59 06:59 14:59 Intake Total 2090 / 2590 529.167 / 3119.167 480 / 480 Output Total 3900 / 5700 1350 / 7050 1350 / 1350 Balance -1810 / -3110 -820.833 / -3930.833 -870 / -870 Physical Exam Narrative: General: Alert oriented x3, patient seen sitting up in bed. HEENT: Normocephalic, atraumatic, EOMI, breathing normally with normal respiratory effort on 2 L nasal cannula. Cardio: Regular rate rhythm, normal S1-S2, no murmurs Respiratory: Good bilateral air entry, no wheezes no rhonchi appreciated GI: Abdomen soft, nontender, nondistended, bowel sounds + Behavior: Appropriate and cooperative Extremities: Trace pitting edema bilateral lower extremities, no cyanosis Urinary Catheter Management: Sanchez: Cath Placed During This Visit: yes Reason for Continuing Indwelling Catheter: Accurate Measurement of Urinary Output in Critically Ill Patients Urinary Catheter Date of Insertion: 09/06/21 Urinary Catheter Time of Insertion: : Data : 09/08/21 11:10 09/08/21 11:10 Micro: Microbiology 09/06/21 07:15 Urine Culture - Final Urine,Clean Catch A&P Assessment and plan (1) Obesity (BMI 30-39.9): Status: Acute (2) Septic shock: Status: Acute (3) Asthma: Status: Acute Qualifiers: Asthma severity: mild Asthma persistence: intermittent Asthma complication type: uncomplicated Qualified Code(s): J45.20 - Mild intermittent asthma, uncomplicated (4) Suspected pulmonary embolism: Status: Acute (5) Right heart failure: Status: Acute (6) YOLANDA (acute kidney injury): Status: Acute (7) Community acquired pneumonia: Status: Acute (8) Acute respiratory failure with hypoxia: Status: Acute (9) COPD (chronic obstructive pulmonary disease): Status: Acute Qualifiers: COPD type: unspecified COPD Qualified Code(s): J44.9 - Chronic obstructive pulmonary disease, unspecified (10) Stiffness of joints of both hands: Status: Acute Plan #Septic shock 2/2 Community-acquired pneumonia - improving, off pressors #Acute hypoxic respiratory failure #COPD #Obstructive sleep apnea #Suspected pulmonary embolism #Right-sided heart failure, hypokinetic right ventricle #Acute kidney injury, most likely pre-renal cause #Hypokalemia #Hypophosphatemia - Continue? zosyn, azithromycin. CA vanco. - Bacterial Ag negative, MRSA nares negative, Bcx NTD, Delta trop negative - Cortisol 8.47 - s/p Hydrocortisone 100 mg x1 followed by 50 mg Q6H for stress dose steroid - levophed off. COntinue to monitor blood pressure - Dimer elevated. CTA ruled out PE. Pulm consulted. Appreciate recommendations. Cr. 1.1 today - Lovenox 110 BID to be discontinued - Delta Trop negative. EKG non-ischemic - Unsure if RHF new finding vs. old however pt was on diuretics prior to hospital admission. Patient unable to state why on diuretics. May benefit from RH cath to rule out pulmonary hypertension. Pulm follow [place] formal [place]FT. -We will do stress test in a.m. - YOLANDA improving - Continue gentle hydration. - Insulin SSI - Hold Klonopin. - Continue pulmicort inh bid, zoloft 100 daily, duoneb Full Code DVT PPX: lovenox Attestations Medical Necessity Statement*: Cardiac stress test in a.m. Potentially discharge after stress test unless results point further work-up with angiogram. Coding Level of Care Code Acute Rattan Worker for [facility] Fwd Diagnoses Obesity (BMI 30-39.9) E66.9 Septic shock A41.9; R65.21 Asthma J45.20 Asthma severity: mild Asthma persistence: intermittent Asthma complication type: uncomplicated Suspected pulmonary embolism R09.89 Right heart failure I50.810 YOLANDA (acute kidney injury) N17.9 Community acquired pneumonia J18.9 Acute respiratory failure with hypoxia J96.01 COPD (chronic obstructive pulmonary disease) J44.9 COPD type: unspecified COPD Stiffness of joints of both hands M25.641; M25.642
[2021-09-09] MEDS: cefTRIAXone 1,000 MG in sodium chloride 0.9% (plus) 50 ML 100 MG IV (14:41)
[2021-09-09 15:53] LABS: Osmolality Urine 413 mOsm/kg (50-1200)
[2021-09-09 16:48] LABS: Glucose Point of Care 99 mg/dL (70-110)
[2021-09-09] MEDS: enoxaparin 40 mg/0.4 mL Syringe SUBCUT (18:06)
--- NOTE | 2021-09-09 20:36 | PC.NURSE ---
Report called to [facility] on med/surg. All questions answered. Patient accepting of transfer. Brought cpap machine and all patient belongings including: purse, cloths, cell phone and fisher clam, and tablet.
[2021-09-09] MEDS: acetaminophen 325 mg Tablet 650 MG PO (20:53)
[2021-09-09 21:24] LABS: Glucose Point of Care 128 mg/dL (70-110)
[2021-09-10] VITALS (13 sets, daily range): BP systolic 125–159; BP diastolic 70–97; PULSE 67–95; RESP 12–18; TEMP 36.6–37; O2SAT 93–96
[2021-09-10] MEDS: ipratropium-albuterol 3 mL Neb INHALATION ×3 (02:47→20:44)
[2021-09-10 06:33] LABS: Glucose Point of Care 91 mg/dL (70-110)
--- NOTE | 2021-09-10 07:00 | ECG_ITS ---
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 Interpretive Statements NAME OF STUDY: LEXISCAN SESTAMIBI STRESS TEST INDICATION: Chest Pain, PROCEDURE: At the baseline, the EKG revealed normal sinus rhythm with a nonspecific T wave changes. The baseline blood pressure was 160/98 mm Hg with a heart rate of 67 beats/min. Lexiscan was infused over a period of 20 seconds. A total of 0.4 milligrams of Lexiscan was infused. The stress phase was continued for a total of 5 minutes. Heart rate at the end of the stress phase was 94 with a blood pressure 160/91. The EKG at the peak infusion revealed no significant changes. Sestamibi was injected 20 seconds after the Lexiscan infusion. Blood pressure at the end of the recovery phase was 158/94 with a heart rate of 89 per minute. CONCLUSION: 1. No significant EKG changes with the LexiScan infusion 2. No LexiScan induced chest pain or cardiac arrhythmia 3. Normal blood pressure and heart rate response 4. Sestamibi/sestamibi perfusion scan pending; see separate report. Electronically Signed On 09-11-2021 12:05:39 CDT by Yair Rebollar M.D. [email or web address]
[2021-09-10 07:07] LABS: Basophils % 0.6 %; Eosinophils # 0.2 10^3/uL (0.0-0.8); Eosinophils % 2.3 %; Hematocrit 35.1 % (37.0-47.0); Hemoglobin 10.9 g/dL (11.5-15.3); Lymphocytes # 2.1 10^3/uL (0.8-4.8); Lymphocytes % 30.8 %; Mean Corpuscular HGB Conc 31.1 g/dL (30.0-36.0); Mean Corpuscular Hemoglobin 28.5 pg (28.0-34.0); Mean Corpuscular Volume 91.9 fl (81-99); Monocytes # 0.6 10^3/uL (0.2-0.9); Monocytes % 9.2 %; Neutrophils # 3.05 10^3/uL (1.8-7.7); Neutrophils % 44.5 %; Nucleated Red Blood Cells % 0 %; Platelet Count 239 10^3/cmm (130-400); Red Blood Count 3.82 10^6/uL (4.1-5.3); Red Cell Distribution Width 13.4 % (12.1-15.1); White Blood Count 6.9 10^3/uL (4.0-10.0)
[2021-09-10 07:55] LABS: Anion Gap 13.3 (5-19); Blood Urea Nitrogen 10 mg/dL (8-23); Calcium 8.8 mg/dL (8.5-10.5); Carbon Dioxide 26 mmol/L (22-29); Chloride 105 mmol/L (98-107); Glomerular Filtration Rate 84.8 mL/min (90-130); Glucose 101 mg/dL (65-115); Osmolality Calculated 291 mOsm/kg (285-295); Potassium 3.3 mmol/L (3.5-5.1); Sodium 141 mmol/L (136-145)
[2021-09-10] MEDS: regadenoson 0.4 Mg/5 ml Syringe IVP (07:55)
[2021-09-10 08:03] LABS: Slide Review Slide Review Perform
[2021-09-10] MEDS: sertraline 100 mg Tablet PO (09:12)
[2021-09-10] MEDS: allopurinol 100 mg Tablet PO (09:12)
[2021-09-10] MEDS: pantoprazole DR 40 mg Tablet PO (09:12)
[2021-09-10] MEDS: azithromycin 250 mg Tablet 500 MG PO (09:12)
[2021-09-10] MEDS: atorvastatin 40 mg Tablet PO (09:12)
[2021-09-10 11:13] LABS: Glucose Point of Care 105 mg/dL (70-110)
--- NOTE | 2021-09-10 11:49 | NMCV_ITS ---
NM bernice perf SPECT r/s* [id number] Kavin Robb Age: 60 Gender: F : 1960 Exam Date: 09/10/2021 07:06 Ordering Phys: Jaycee Reynaga MD Technologist: KATE Arriaza Exam Location: [facility] Indications: CHEST PAIN STRESS TEST [facility] IMAGE PROTOCOL Rest/Stress 1 Lexiscan Day Radiopharmaceutical Dose (mCi) Administration Site Administered by Rest: Tc-99m 10.9 IV KATE Roman Sestamibi Stress:Tc-99m 33.0 IV KATE Roman Sestamibi Rest: 10-Sep-2021 60 Discovery 630 Stress: 10-Sep-2021 30 Discovery 630 0.4mg Lexiscan. Images obtained in supine and prone position. SPECT RESULTS Technical Quality: Excellent Raw Data Analysis: Normal, Breast attenuation Image Corrections: No attenuation or motion correction applied Summed Stress Score: 6 Summed Rest Score: 12 Summed Difference Score: 1 PERFUSION FINDINGS Moderate area of decreased tracer uptake was noted in the basal and mid inferolateral, mid and apical inferior and LV apex. Some reversibility was noted in the basal inferolateral region, with respect to the supine imaging. FUNCTIONAL RESULTS (calculated via Gated SPECT) Stress Image LV EF (%): 50 Stress EDV (mL):147 TID: 0.77 Stress ESV (mL):73 FUNCTIONAL FINDINGS: Segmental wall motion analysis revealed mild hypokinesia of the apical inferior region. IMPRESSIONS 1. Myocardial perfusion imaging revealing moderate area of moderately decreased tracer uptake in the inferior, inferolateral and apical regions with a small area of minimal reversibility in the basal inferolateral region, suggesting myocardial scarring in the distribution of the circumflex artery with a small area of ischemia at the basal inferolateral region. 2. Normal LV ejection fraction 50%. 3. Wall motion normalities as mentioned above. 4. Normal LV volume No similar previous studies are available for comparison Dr Yair Rebollar MD [facility] (Electronically Signed) Final Date: 10 September 2021 15:07 S
[2021-09-10] MEDS: enoxaparin 40 mg/0.4 mL Syringe SUBCUT (15:14)
[2021-09-10] MEDS: cefTRIAXone 1,000 MG in sodium chloride 0.9% (plus) 50 ML 100 MG IV (15:17)
--- NOTE | 2021-09-10 15:41 | PM.PN ---
Subjective Subjective: seen this AM. No acute events overnight Stress test today Vitals/I&O/Wt Last Vital Signs Temp 98.6 F 09/10/21 12:00 Pulse 80 09/10/21 15:10 Resp 15 09/10/21 15:00 BP 125/72 09/10/21 12:00 Pulse Ox 93 09/10/21 15:00 09/10/21 09/10/21 09/10/21 06:59 14:59 22:59 Intake Total 240 / 240 Output Total 2400 / 5950 Balance -2400 / -4400 240 / 240 Physical Exam Narrative: General: Alert oriented x3, patient seen sitting up in bed. HEENT: Normocephalic, atraumatic, EOMI, breathing normally with normal respiratory effort on room air Cardio: Regular rate rhythm, normal S1-S2, no murmurs Respiratory: Good bilateral air entry, no wheezes no rhonchi appreciated GI: Abdomen soft, nontender, nondistended, bowel sounds + Behavior: Appropriate and cooperative Extremities: Trace pitting edema bilateral lower extremities, no cyanosis Urinary Catheter Management: Sanchez: Cath Placed During This Visit: yes, but has since been removed by the nurse Reason for Continuing Indwelling Catheter: Decision to DC Catheter Urinary Catheter Date of Insertion: 09/06/21 Urinary Catheter Time of Insertion: 07:27 Date Urinary Catheter Removed: 09/10/21 Time Urinary Catheter Discontinued: 14:15 Data : 09/10/21 06:41 09/10/21 06:41 A&P Assessment and plan (1) Obesity (BMI 30-39.9): Status: Acute (2) Septic shock: Status: Acute (3) Asthma: Status: Acute Qualifiers: Asthma severity: mild Asthma persistence: intermittent Asthma complication type: uncomplicated Qualified Code(s): J45.20 - Mild intermittent asthma, uncomplicated (4) Right heart failure: Status: Acute (5) YOLANDA (acute kidney injury): Status: Acute (6) Community acquired pneumonia: Status: Acute (7) Acute respiratory failure with hypoxia: Status: Acute (8) COPD (chronic obstructive pulmonary disease): Status: Acute Qualifiers: COPD type: unspecified COPD Qualified Code(s): J44.9 - Chronic obstructive pulmonary disease, unspecified Plan #Septic shock 2/2 Community-acquired pneumonia #Acute hypoxic respiratory failure #COPD #Obstructive sleep apnea #Suspected pulmonary embolism #Right-sided heart failure, hypokinetic right ventricle #Acute kidney injury, most likely pre-renal cause #Hypokalemia #Hypophosphatemia - Continue? zosyn, azithromycin. [place] vanco. - Bacterial Ag negative, MRSA nares negative, Bcx NTD, Delta trop negative - Cortisol 8.47 - s/p Hydrocortisone 100 mg x1 followed by 50 mg Q6H for stress dose steroid - levophed off. COntinue to monitor blood pressure - Dimer elevated. CTA ruled out PE. Pulm consulted.? Appreciate recommendations.? Cr. 1.1 today - Lovenox 110 BID to be discontinued - Delta Trop negative. EKG non-ischemic - Unsure if RHF new finding vs. old however pt was on diuretics prior to hospital admission. Patient unable to state why on diuretics. May benefit from RH cath to rule out pulmonary hypertension. Pulm follow [place] formal P[place]. -Stress test in AM. - YOLANDA improving - Continue gentle hydration. - Insulin SSI - Hold Klonopin. - Continue pulmicort inh bid, zoloft 100 daily, duoneb - Stress test positive. Cardiology consult pending. Full Code DVT PPX: lovenox Attestations Medical Necessity Statement*: Positive stress test. Will consult cardiology Coding Level of Care Code Acute Sr Risk Management Consultant for [facility] Fwd Diagnoses Obesity (BMI 30-39.9) E66.9 Septic shock A41.9; R65.21 Asthma J45.20 Asthma severity: mild Asthma persistence: intermittent Asthma complication type: uncomplicated Right heart failure I50.810 YOLANDA (acute kidney injury) N17.9 Community acquired pneumonia J18.9 Acute respiratory failure with hypoxia J96.01 COPD (chronic obstructive pulmonary disease) J44.9 COPD type: unspecified COPD
[2021-09-10 17:08] LABS: Glucose Point of Care 106 mg/dL (70-110)
--- NOTE | 2021-09-10 17:48 | PM.CONSULT ---
Providers/Reason For Consult Consulting Physician/Specialty*: MARIA ANTONIA Rebollar MD/cardiology Reason for Consult*: Patient with heart failure and abnormal Myocardial perfusion imaging Requesting Physician: Dr. Reynaga Attending Physician: Jaycee Reynaga MD Primary Care Provider: RICHAR Hawk History of Present Illness History of Present Illness Kavin Robb is a 60 year old female with a history of hypertension, type 2 diabetes, dyslipidemia, reactive airway disease, sleep apnea, recurrent COPD exacerbations and pneumonia, is admitted to hospital with complaints of progressive shortness of breath and respiratory distress. She was having a cough, malaise and generalized weakness for 4 to 5 days prior to the hospital admission. she was found to have pneumonia and features of septic shock. She was treated with IV antibiotics, vasopressors, IV fluids, ventilatory support with BiPAP, and other symptomatic measures. Respiratory status improved. She had features of heart failure with elevated BNP. The right ventricle was found to be mildly dilated with mild diffuse hypokinesia, based on the echocardiogram Right ventricular failure was considered. Since there is no good Doppler signals for the tricuspid valve regurgitation, the PA pressure could not be calculated. She underwent a Myocardial perfusion imaging today. She was found to have moderate area of decreased tracer uptake in the inferior, inferolateral and apical regions with some reversibility in the basal inferolateral region, suggestive of myocardial scarring with ischemia, mostly in the distribution of the right coronary artery with some involvement of the left circumflex artery. Cardiology consult is requested for further cardiac evaluation recommendations. Patient apparently never had any significant chest pain. She has a baseline shortness of breath with activities. She also has been having easy fatigability in the recent months. No orthopnea or PND. No fever, chills or cough Her mother had congestive heart failure in her 60s. Maternal uncles and aunts(total of 5 ) had heart problems in their 60s. The details are not known. Patient denies any smoking abuse, alcohol abuse or any substance abuse. Review of Systems Narrative: CONSTITUTIONAL: Generalized weakness/malaise/shortness of breath as mentioned above EYES: No blurring of vision or other visual disturbances lately. ENT: No hoarseness of voice, auditory disturbances or sore throat. CARDIOVASCULAR: As mentioned above. RESPIRATORY: Had a dry cough and possible low-grade fever prior to hospital admission GASTROINTESTINAL: No hematemesis or melena. GENITOURINARY: No dysuria or hematuria. INTEGUMENTARY: No skin rashes or history of skin cancer. NEURO: No transient ischemic attacks or amaurosis. PSYCHIATRIC: No history of psychosis or major depression. HEMATOLOGIC: No bleeding disorders or significant anemia. ENDOCRINE: No history of polyuria or polydipsia. MUSCULOSKELETAL: No recent joint pain or swelling. ALLERGY/IMMUNOLOGY: As mentioned above. Medications/Allergies Home Medications Medication Instructions Recorded Confirmed Last Taken Type albuterol sulfate 2.5 mg INHALATION TID PRN ml 12/19/19 09/06/21 01/08/21 History albuterol sulfate 90 mcg/actuation 2 puff INHALATION Q6H PRN 12/19/19 09/06/21 01/08/21 History aerosol inhaler (ProAir HFA) atenolol 100 mg tablet 50 mg PO DAILY 12/19/19 09/06/21 01/08/21 History atorvastatin 40 mg tablet 40 mg PO DAILY 12/19/19 09/06/21 01/08/21 History cetirizine 10 mg capsule 10 mg PO DAILY 12/19/19 09/06/21 01/08/21 History clonazepam 0.5 mg tablet 0.5 mg PO BID PRN 12/19/19 09/06/21 01/08/21 History ergocalciferol (vitamin D2) 1,250 1,250 mcg PO Q7D cap 12/19/19 09/06/21 01/08/21 History mcg (50,000 unit) capsule fluticasone 500 mcg-salmeterol 50 1 inh INHALATION BID 12/19/19 09/06/21 01/08/21 History mcg/dose blistr powdr for inhalation fluticasone propionate 50 1 spray INTRANASAL BID 12/19/19 09/06/21 01/08/21 History mcg/actuation nasal spray,suspension furosemide 40 mg tablet 40 mg PO BID 12/19/19 09/06/21 01/08/21 History ibuprofen 800 mg tablet 800 mg PO Q8H PRN 12/19/19 09/06/21 01/08/21 History montelukast 10 mg tablet 10 mg PO DAILY 12/19/19 09/06/21 01/08/21 History potassium chloride 20 mEq 20 meq PO DAILY 12/19/19 09/06/21 01/08/21 History tablet,extended release(part/cryst) (Klor-Con M) sertraline 100 mg tablet 100 mg PO BID 12/19/19 09/06/21 01/08/21 History allopurinol 100 mg tablet 100 mg PO DAILY 11/28/20 09/06/21 01/08/21 History metformin 500 mg tablet 500 mg PO BID 11/28/20 09/06/21 01/08/21 History cyanocobalamin (vitamin B-12) 1,000 mcg IM Q30D 09/06/21 09/06/21 Unknown History 1,000 mcg/mL injection solution Allergies Allergy/AdvReac Type Severity Reaction Status Date / Time oxycodone [From OxyContin] Allergy Mild itching Verified 04/30/21 10:25 metronidazole [From Flagyl] Allergy Unknown Verified 04/30/21 10:25 lisinopril AdvReac cough Verified 04/30/21 10:25 Current Medications Generic Name Dose Route Start Last Admin Trade Name Freq PRN Reason Stop Dose Admin Acetaminophen 650 mg 09/06/21 02:46 09/09/21 20:53 Acetaminophen 325 Mg Tablet PO 650 mg Q6H PRN Administration Mild/Mod Pain Or Temp >/= 101 Albuterol/Ipratropium 3 ml 09/06/21 03:00 09/10/21 15:06 Ipratropium-Albuterol 3 Ml Neb INHALATION 3 ml Q6H.RESP KENDALL Administration Allopurinol 100 mg 09/06/21 09:00 09/10/21 09:12 Allopurinol 100 Mg Tablet PO 100 mg DAILY KENDALL Administration Atorvastatin Calcium 40 mg 09/06/21 09:00 09/10/21 09:12 Atorvastatin 40 Mg Tablet PO 40 mg DAILY KENDALL Administration Azithromycin 500 mg 09/06/21 09:00 09/10/21 09:12 Azithromycin 250 Mg Tablet PO 500 mg DAILY KENDALL Administration Protocol Budesonide 0.5 mg 09/06/21 08:00 09/10/21 10:11 Budesonide 0.5 Mg/2 Ml Neb INHALATION Not Given BID.RESPIRATORY KENDALL Enoxaparin Sodium 40 mg 09/07/21 16:30 09/10/21 15:14 Enoxaparin 40 Mg/0.4 Ml Syringe SUBCUT 40 mg Q24H KENDALL Administration Ceftriaxone Sodium 1,000 mg/ 50 mls @ 100 mls/hr 09/09/21 12:00 09/10/21 15:47 Sodium Chloride IV Infused Q24H KENDALL Infusion Protocol Insulin Human Lispro 0 unit 09/07/21 21:00 09/09/21 17:50 Insulin Lispro 100 Unit/1 Ml SUBCUT Not Given BEDTIME KENDALL Protocol Insulin Human Lispro 0 unit 09/07/21 08:00 09/10/21 17:16 Insulin Lispro 100 Unit/1 Ml SUBCUT Not Given [facility] Protocol Lanolin 1 applic 09/06/21 05:03 09/06/21 05:09 Lanolin Oint 7 Gm TOPICAL 1 tube PRN PRN Administration DRYNESS Pantoprazole Sodium 40 mg 09/06/21 09:00 09/10/21 09:[address] 40 Mg Tablet PO 40 mg DAILY KENDALL Administration Sertraline HCl 100 mg 09/06/21 09:00 09/10/21 09:12 Sertraline 100 Mg Tablet PO 100 mg DAILY KENDALL Administration PFSH Acute PFSH: Medical History Asthma Colon polyps COPD (chronic obstructive pulmonary disease) Gout Hypertension Sleep apnea Surgical History H/O colonoscopy (01/09/21) H/O total hysterectomy History of bladder surgery History of cholecystectomy History of surgical removal of ganglion cyst History of tubal ligation Social History Smoking and tobacco status: never smoked Second hand smoke exposure: No Vitals/I&O/Wt Last Vital Signs Temp 98.5 F 09/10/21 16:00 Pulse 75 09/10/21 16:00 Resp 18 09/10/21 16:00 BP 128/70 09/10/21 16:00 Pulse Ox 95 09/10/21 16:00 09/10/21 09/10/21 09/10/21 06:59 14:59 22:59 Intake Total 240 / 240 50 / 290 Output Total 2400 / 5950 Balance -2400 / -4400 240 / 240 50 / 290 Physical Exam Narrative: GENERAL: The patient is alert and oriented times three. Not in any acute distress. Morbidly obese HEENT: No significant pallor, icterus or lymphadenopathy. The pupils are symmetrical. Oral cavity: There are no mucous membrane lesions. Funduscopic examination: The fundus is not visualized. NECK: Trachea appears to be central. No masses noted. No JVD or thyromegaly appreciated. No carotid bruit. RESPIRATORY: Chest is symmetrical. No intercostals muscle retraction or any accessory muscle activation. There is no chest wall tenderness. Breath sounds are heard bilaterally. Scattered coarse crackles and expiratory wheezes. No evidence of consolidation. BREASTS: Deferred. HEART: The PMI could not be palpated. No palpable precordial events. S1 and S2 are normal. No S3 or S4 heard. No pericardial rub or any click heard. ABDOMEN: No vessel pulsations or distention. No tenderness. No organomegaly appreciated. No abdominal bruit. Bowel sounds are normally heard. : Deferred. RECTAL: Deferred. LYMPHATIC: No lymphadenopathy noted in the neck or groin. EXTREMITIES: No edema or cyanosis. No clubbing. The pulses are symmetrical bilaterally. The radial, femoral, dorsalis pedis and the posterior tibial pulses are palpated and found to be in good volume and amplitude. MUSCULOSKELETAL: No acute joint deformities or swelling SKIN: There are no significant scars or skin rash noted. NEUROPSYCHIATRIC: The patient is alert and oriented x3. Appears to be in a good mood. The higher functions are grossly within normal limits. No tremors or rigidity noted. Urinary Catheter Management: Sanchez: Cath Placed During This Visit: yes, but has since been removed by the nurse Reason for Continuing Indwelling Catheter: Decision to DC Catheter Urinary Catheter Date of Insertion: 09/06/21 Urinary Catheter Time of Insertion: 07:27 Date Urinary Catheter Removed: 09/10/21 Time Urinary Catheter Discontinued: 14:15 Data : 09/10/21 06:41 09/10/21 06:41 Echo: My impression: ?Left ventricle is mildly dilated. ?LV systolic function is normal with EF of 55 to 60%. ?Right ventricle is dilated and hypokinetic ?Trace tricuspid regurgitation ?No comparison studies are available Other Imaging: My impression: 1.? Myocardial perfusion imaging revealing moderate area of moderately ?decreased tracer uptake in the inferior, inferolateral and apical regions with ?a small area of minimal reversibility in the basal inferolateral region, ?suggesting myocardial scarring in the distribution of the circumflex artery ?with a small area of ischemia at the basal inferolateral region. ?2.? Normal LV ejection fraction 50%. ?3.? Wall motion normalities as mentioned above. ?4.? Normal LV volume ?No similar previous studies are available for comparison EKG 1: My Interpretation: EKG from 09/06/2021 normal sinus rhythm with a heart rate of 94 bpm. Some nonspecific T wave changes. EKG computer-generated impression: Chest X-Ray 09/05/21 21:13 IMPRESSION: Patchy pneumonia or aspiration in the left lung. Chest CTA 09/07/21 09:00 IMPRESSION: 1. Proximal main pulmonary arteries are normal. No evidence of pulmonary embolus. 2. Dense airspace consolidation involving the LEFT lower lobe with air bronchograms and a small amount of peripheral loculated pleural fluid. Findings compatible with pneumonia. Recommend follow-up to resolution to exclude underlying malignancy. 3. Bulky Anterior mediastinal peribronchial and subcarinal lymphadenopathy. 4. RIGHT lung is well aerated. 5. Prior cholecystectomy. Notified Nellie Quezada MD at 09/07/2021 3:43 PM. A&P Assessment and plan (1) Abnormal cardiovascular stress test: The abnormal Myocardial perfusion imaging suggestive of ischemia in the distribution of the left circumflex artery, predominantly. In view of the multiple risk factors, most likely she may have underlying coronary disease. In order to further evaluate her coronary status, she requires a cardiac catheterization. Apparently she has no chest pain at this time. The option of continuing the medical treatment also was discussed in detail. Patient is wanting to go ahead with a cardiac catheterization. The risk of bleeding, hematoma, vascular injury, myocardial infarction, CVA, renal failure and other concomitant complications were explained in detail. Patient understood this well and consented to proceed. Status: Acute (2) Right heart failure: The sepsis coupled with respiratory failure/COPD exacerbation might have caused the right heart failure. The echocardiogram could not calculate the PA pressure. For further evaluation of the right-sided hemodynamics, a right heart catheterization would be helpful. Status: Acute (3) Septic shock: Patient was on IV antibiotics and vasopressors as of now, all the vasopressors are discontinued. Status: Acute (4) Acute respiratory failure with hypoxia: Patient's respiratory status has improved. She is remaining afebrile. Currently she is on room air. Status: Acute (5) Benign essential hypertension with target blood pressure below 140/90: Currently the blood pressure is in the normal range. May continue on the current medication. Status: Acute (6) T2DM (type 2 diabetes mellitus): The blood sugar seems to be under control. May currently on the current management. Status: Acute (7) Dyslipidemia: Patient is on atorvastatin. This may be continued. Status: Acute Plan Other problems are Anemia-multifactorial Sleep apnea Morbid obesity We may go ahead and schedule the patient for the cardiac catheterization in the morning. Based on the results, further recommendations will be made. Consult Attestations Medical Necessity Statement: Patient requires continued hospital stay for close monitoring and further management Coding Level of Care Code Acute Corporate Logistics Manager for [facility] Serena Medical Decision Making High Complexity Diagnoses Right heart failure I50.810 Septic shock A41.9; R65.21 Acute respiratory failure with hypoxia J96.01 Abnormal cardiovascular stress test R94.39 Benign essential hypertension with target blood pressure below 140/90 I10 T2DM (type 2 diabetes mellitus) E11.9 Dyslipidemia E78.5
[2021-09-10] MEDS: sodium chloride 0.9% 1,000 ML 50 ML IV (20:28)
[2021-09-10] MEDS: diphenhydrAMINE 50 mg Capsule PO (20:29)
[2021-09-10] MEDS: budesonide 0.5 mg/2 mL Neb INHALATION (20:45)
[2021-09-10 21:03] LABS: Glucose Point of Care 92 mg/dL (70-110)
[2021-09-11] VITALS (30 sets, daily range): BP systolic 107–157; BP diastolic 57–101; PULSE 61–82; RESP 14–25; TEMP 36.7–37.1; O2SAT 90–98
[2021-09-11 02:56] LABS: Blood Urea Nitrogen 8 mg/dL (8-23); Calcium 8.8 mg/dL (8.5-10.5); Carbon Dioxide 26 mmol/L (22-29); Chloride 104 mmol/L (98-107); Glomerular Filtration Rate 84.8 mL/min (90-130); Glucose 112 mg/dL (65-115); Magnesium 2.1 mg/dL (1.7-2.3); Osmolality Calculated 289 mOsm/kg (285-295); Sodium 140 mmol/L (136-145)
[2021-09-11 06:30] LABS: Glucose Point of Care 107 mg/dL (70-110)
--- NOTE | 2021-09-11 08:11 | XACV_ITS ---
Exam Room: [facility] Ht: 165 cm Wt: 109 kg BSA: 2.29 m2 Gender: Female : 1960 Any Known Allergies: Other Exam Priority: Routine Procedure(s): Procedure Description: Diagnostic procedure Procedure Description: Left Heart Catheterization Procedure Description: Right Heart Catheterization Procedure Description: O2 saturation Procedure Description: Coronary Angiography Smooth WYATT; Diagnostic Cath Status: Elective Diagnostic Findings * Left main is a medium to large caliber vessel with no significant stenotic lesions. * Left anterior descending artery is a medium to large caliber vessel which is somewhat tortuous and was found to be wrapping around the LV apex minimally. No significant diastolic lesions were noted. * The left circumflex artery is a large caliber tortuous vessel with no significant stenotic lesions. * The right coronary artery is a medium to large caliber dominant vessel with no significant stenotic lesions. It has a high and posterior takeoff. Conclusions 1. 60-year-old white female with multiple risk factors for coronary artery disease, is admitted to the hospital with features of pneumonia and septic shock. She developed congestive heart failure. Had some features of RV failure. Myocardial perfusion imaging revealed a small area of ischemia in the distribution of the left circumflex artery. For further evaluation of her coronary status as well as the right heart pressures, a right and left heart catheterization with coronary angiogram was recommended. Patient underwent this procedure today. The findings are as follows. 2. The coronary arteries were found to be of medium to large caliber. No significant stenotic lesions were noted. LVEDP of 17 mmHg. The PA pressure was 36/18 with a mean of 26. Right atrial pressure was 7. RV pressure 35/1. Cardiac output was calculated to be 5.0 L/min, based on Inés's. Cardiac index was 2.0.. Diagnostic RX Recommendation: medical therapy and/or counseling LV EDP: 17 mmHg Left Ventriculography Findings: * LV gram was not performed because of the limitations on dye usage. The LVEDP was 17 mmHg. Pressures Phase:Rest AO : 110 / 89 ( 100 ) @ 1:48:00 PM 111 / 86 ( 99 ) @ 1:50:00 PM 118 / 88 ( 104 ) @ 1:52:00 PM 116 / 89 ( 103 ) @ 1:54:00 PM 142 / 68 ( 103 ) @ 1:58:00 PM LV : 146 / -9 / 17 @ 1:57:00 PM RV : 35 / 1 / 9 @ 1:36:00 PM PA : 36 / 18 ( 26 ) @ 1:35:00 PM RA : a wave = 9 v wave = 7 mean = 6 @ 1:37:00 PM Hemodynamic Findings The right atrial pressure was 7, RV pressure of 35/1, PA pressure 36/18 with a mean of 26. Cardiac output by Inés's was 5 with an index of 2. O2 Content Phase:Rest PA : O2 Content O2: 63.4 @ 1:50:00 PM Saturations Phase:Rest AO : 93 @ 1:48:00 PM RA : 65 @ 1:54:00 PM RV : 68 @ 1:52:00 PM PA : 63 @ 1:50:00 PM Cardiac Output Phase:Rest Inés : 5 @ 1:02:43 PM Inés Cardiac Index: 2 @ 1:02:43 PM Flow Phase:Rest Qp : 5 @ 1:02:43 PM Qs : 5 @ 1:02:43 PM Clinical Evaluation EBL: 5mL-10mL Procedural Details Procedure Consent Obtained. Pre-Procedure Time Out. Identified patient by full name and date of as verbalized by the patient/guarantor. Does the consent match the physician's order: Yes. Accurate & Complete Informed Consent: Yes. Inpatient/Outpatient History & Physical on Chart: Yes. If H&P is completed, is and addenduem needed: No; If yes, is the addendum complete: N/A. Visualize and Verify Site with Patient/Guarantor: N/A. Relevant Radiology Images available: Yes. The risks, benefits, and alternatives of sedation and/or procedure were discussed by physician. The patient agrees to continue. Procedure started. [facility] Clinical Fraility Score: 3: Managing Well. Embosser Apprentice Indications: Other. Chest Pain Symptom Assessment: Atypical Angina. Correct patient, site and procedure confirmed by cath team. PERRLA. Strong, equal hand senior net application developer bilaterally. Lungs clear x 5 lobes. IV Site on Arrival: 20 gauge in the right anticubital. IV Site on Arrival: 20 gauge in the left anticubital. IV Fluids: 0.9% NaCl at KVO. 500 mL infused prior to labeling machine operator. right groin was prepped with chloroprep then draped in the usual sterile fashion. right radial was prepped with chloroprep then draped in the usual sterile fashion. right brachial was prepped with chloroprep then draped in the usual sterile fashion. Physician notified. Baseline sample Acquired. HR: 84 BPM. Physician arrived. Physician scrubbed in. Immediate Pre-Procedure Time Out. Correct Patient: Yes; Correct Procedure: Yes; Correct Site: Yes; Correct Patient Position: Yes; Correct Supplies: Yes; Dried Flammable Prep: Yes; Blood Products Available: N/A;. Lidocaine 1% infiltrated to the right brachial. 20g IV cannula exchanged for 6 Fr sheath to R brachial vein. [place]-Seb MON catheter inserted. [place] wire inserted through the [place] catheter. wire out. 0.025 wire inserted. Oximetry samples were obtained. Normal venous range: 60-85%. Normal arterial range: 95-100%. Pressure measurements obtained. [place]-Seb out. Lidocaine 1% infiltrated to the right radial. Arterial access obtained. A 5 palestinian Hank catheter in over wire. Multiple views taken of left coronary artery. Oxygen started at 2liters/min via nasal canula. Catheter removed over the standard wire. A 5 palestinian JR4 catheter in over wire. Multiple views taken of right coronary artery. EDP Sample taken: LV 146/-10,17; HR: 89 BPM; SpO2: 96%. Pullback taken: LV Off; AO Off; Mean: , Peak to Peak: , SEP: ; HR: 89 BPM; SpO2: 96%. Catheter removed over the standard wire. A TR Band was successful obtaining hemostatsis at the Right Radial artery insertion site. A Manual Compression was successful obtaining hemostatsis at the Right Brachial Vein insertion site. Post Procedure: Pulses reassessed and unchanged. PERRLA. Strong, equal hand senior net application developer bilaterally. No VTE prophylaxis required. Medication's Wasted: Lidocaine 1% = 4 mL. Medication's Wasted: Nitro = 49.8 mg. Medication's Wasted: Heparin = 1000 units. Medication's Wasted: Other = Versed 1 mg Fentanyl 50 mcg. Total IV fluids: 45 mL. Post-op diagnosis: Normal Coronaries. Complications: None. Estimated blood loss: 5mL-10mL. Responsiveness - Normal response to verbal stimuli; alert and oriented, PERRLA. Airway - Unaffected, no intervention required; spontaneous ventilation. Circulation: W/N/L, pulses unchanged. Nausea/Vomiting: No. Vital chart was stopped. Procedure completed. Patient transferred by wheelchair to [facility]. Access Site Site: Right Brachial Vein Sheath Size: 6 Fr Hemostasis Method: Manual Compression Hemostasis Success: Successful Site: Right Radial artery Sheath Size: 6 Fr Hemostasis Method: TR Band Hemostasis Success: Successful Procedure Medications Start: 12:15 PM Stop: 12:15 PM Medication: Versed Amount: 1 mg Route: I.V. Start: 12:15 PM Stop: 12:15 PM Medication: Fentanyl Amount: 50 mcg Route: I.V. Start: 12:44 PM Stop: 12:44 PM Medication: Nitrogylcerin Amount: 200 mcg Route: I.A. Start: 12:44 PM Stop: 12:44 PM Medication: Verapamil Amount: 5 mg Route: I.A. Start: 12:47 PM Stop: 12:47 PM Medication: Heparin Amount: 5000 units Route: I.V. I, the attending physician, have reviewed and verified all procedure medications. Yes, all medications given per verbal order History/Risk Factors Hypertension: Yes Dyslipidemia: Yes Peripheral Arterial Disease (PAD): No Myocardial Infarction (CO): No Obesity: Yes Renal Disease: No Prior Interventions PCI: No CABG: No Valve Surgery: No Report Signatures Finalized by Dr Yair Rebollar MD [facility] on 09/11/2021 01:48 PM
[2021-09-11] MEDS: ipratropium-albuterol 3 mL Neb INHALATION ×2 (08:16→14:46)
[2021-09-11] MEDS: budesonide 0.5 mg/2 mL Neb INHALATION (08:16)
--- NOTE | 2021-09-11 08:25 | PC.NURSE ---
spoke with Dr dietz about patients potassium levels on am labs Instructions to give Potassium 40 meq PO now and potassium 40meq IVP x1 now
[2021-09-11] MEDS: potassium chloride ER 20 mEq Tablet 40 MEQ PO (09:26)
[2021-09-11] MEDS: atorvastatin 40 mg Tablet PO (09:26)
[2021-09-11] MEDS: lidocaine 1% 5 ML in potassium chloride premix 100 ML 25 ML IV (09:26)
[2021-09-11] MEDS: sertraline 100 mg Tablet PO (09:26)
[2021-09-11] MEDS: pantoprazole DR 40 mg Tablet PO (09:26)
[2021-09-11] MEDS: allopurinol 100 mg Tablet PO (09:27)
[2021-09-11] MEDS: azithromycin 250 mg Tablet 500 MG PO (09:28)
--- NOTE | 2021-09-11 10:53 | P.PN_ITS ---
Subjective Subjective: The patient is feeling okay. Her potassium level was 3.0 today. Potassium is being supplemented. Denies any chest pain or palpitations. No dizziness. No unusual shortness of breath. No fever or chills. Medications: Medication Review Details: Current Medications Acetaminophen (Acetaminophen 325 Mg Tablet) 650 mg PO Q6H PRN PRN Reason: Mild/Mod Pain Or Temp >/= 101 Last Admin: 09/09/21 20:53 Dose: 650 mg Documented by: Albuterol/Ipratropium (Ipratropium-Albuterol 3 Ml Neb) 3 ml INHALATION Q6H.RESP KENDALL Last Admin: 09/11/21 08:16 Dose: 3 ml Documented by: Allopurinol (Allopurinol 100 Mg Tablet) 100 mg PO DAILY KENDALL Last Admin: 09/11/21 09:27 Dose: 100 mg Documented by: Atorvastatin Calcium (Atorvastatin 40 Mg Tablet) 40 mg PO DAILY KENDALL Last Admin: 09/11/21 09:26 Dose: 40 mg Documented by: Azithromycin (Azithromycin 250 Mg Tablet) 500 mg PO DAILY KENDALL; Protocol Last Admin: 09/11/21 09:28 Dose: 500 mg Documented by: Benzonatate (Benzonatate 100 Mg Capsule) 100 mg PO TID PRN PRN Reason: COUGH Budesonide (Budesonide 0.5 Mg/2 Ml Neb) 0.5 mg INHALATION BID.RESPIRATORY KENDALL Last Admin: 09/11/21 08:16 Dose: 0.5 mg Documented by: Dextrose (Dextrose 50% Syringe 50 Ml) 25 ml IVP ONCE PRN; Protocol PRN Reason: hypoglycemia protocol Dextrose (Dextrose 50% Syringe 50 Ml) 50 ml IVP PRN PRN; Protocol PRN Reason: hypoglycemia protocol Enoxaparin Sodium (Enoxaparin 40 Mg/0.4 Ml Syringe) 40 mg SUBCUT Q24H KENDALL Last Admin: 09/10/21 15:14 Dose: 40 mg Documented by: Glucagon (Glucagon 1 Mg/Ml Inj 1 Ml) 1 mg IM ONCE PRN; Protocol PRN Reason: Adult Acute Hypoglycemia Prot. Dextrose (D5w) 500 mls @ 100 mls/hr IV ONCE PRN; Protocol PRN Reason: Adult Acute Hypoglycemia Prot Ceftriaxone Sodium 1,000 mg/ (Sodium Chloride) 50 mls @ 100 mls/hr IV Q24H KENDALL; Protocol Last Infusion: 09/10/21 15:47 Dose: Infused Documented by: Sodium Chloride (Sodium Chloride 0.9%) 1,000 mls @ 50 mls/hr IV .Q20H ONE Stop: 09/11/21 15:04 Last Admin: 09/10/21 20:28 Dose: 50 mls/hr Documented by: Lidocaine HCl 5 ml/ Potassium (Chloride) 105 mls @ 25 mls/hr IV ONCE ONE Stop: 09/11/21 13:41 Last Admin: 09/11/21 09:26 Dose: 25 mls/hr Documented by: Insulin Human Lispro (Insulin Lispro 100 Unit/1 Ml) 0 unit SUBCUT BEDTIME [facility]; Protocol Last Admin: 09/10/21 21:16 Dose: Not Given Documented by: Insulin Human Lispro (Insulin Lispro 100 Unit/1 Ml) 0 unit SUBCUT TIDWM [facility]; Protocol Last Admin: 09/11/21 09:05 Dose: Not Given Documented by: Lanolin (Lanolin Oint 7 Gm) 1 applic TOPICAL PRN PRN PRN Reason: DRYNESS Last Admin: 09/06/21 05:09 Dose: 1 tube Documented by: Ondansetron HCl (Ondansetron 2 Mg/Ml Sdv 2 Ml) 4 mg IVP Q2M PRN PRN Reason: NAUSEA Pantoprazole Sodium (Pantoprazole Dr 40 Mg Tablet) 40 mg PO DAILY [facility] Last Admin: 09/11/21 09:26 Dose: 40 mg Documented by: Sertraline HCl (Sertraline 100 Mg Tablet) 100 mg PO DAILY [facility] Last Admin: 09/11/21 09:26 Dose: 100 mg Documented by: Vitals/I&O/Wt Last Vital Signs Temp 98.1 F 09/11/21 07:55 Pulse 71 09/11/21 08:17 Resp 17 09/11/21 08:17 BP 154/81 09/11/21 07:55 Pulse Ox 91 09/11/21 08:17 09/10/21 09/11/21 09/11/21 22:59 06:59 14:59 Intake Total 770 / 1010 0 / 1010 Balance 770 / 1010 0 / 1010 Physical Exam Narrative: GENERAL: The patient is alert and oriented times three. Not in any acute distress. Moderate obesity. HEENT: No significant pallor, icterus or lymphadenopathy.Oral cavity: There are no mucous membrane lesions. NECK: Trachea appears to be central. No masses noted. No JVD or thyromegaly appreciated. RESPIRATORY: Chest is symmetrical. No intercostals muscle retraction or any accessory muscle activation. There is no chest wall tenderness. Breath sounds are heard bilaterally. No rales or rhonchi heard. No evidence of any co nsolidation. BREASTS: Deferred. HEART: The heart sounds are normal. No S3 or S4. No significant murmurs. No pericardial rub ABDOMEN: No vessel pulsations or distention. No tenderness. No organomegaly appreciated. Bowel sounds are normally heard. : Deferred. RECTAL: Deferred. LYMPHATIC: No lymphadenopathy noted in the neck. EXTREMITIES: No edema or cyanosis. No clubbing. MUSCULOSKELETAL: No acute joint deformities or swelling SKIN: There are no significant rashes or ecchymosis NEUROPSYCHIATRIC: The patient is alert and oriented x3. Appears to be in a good mood. No tremors or rigidity noted. Urinary Catheter Management: Sanchez: Cath Placed During This Visit: yes, but has since been removed by the nurse Reason for Continuing Indwelling Catheter: Decision to DC Catheter Urinary Catheter Date of Insertion: 09/06/21 Urinary Catheter Time of Insertion: 07:27 Date Urinary Catheter Removed: 09/10/21 Time Urinary Catheter Discontinued: 14:15 Data : 09/10/21 06:41 09/11/21 01:43 Micro: Microbiology 09/05/21 22:50 Blood Culture - Final Blood NO GROWTH AFTER 5 DAYS 09/05/21 22:45 Blood Culture - Final Blood NO GROWTH AFTER 5 DAYS A&P Assessment and plan (1) Abnormal cardiovascular stress test: Patient is scheduled for the cardiac catheterization today. We will continue on the current medications. Further recommendations will be based on the angiogram findings. Status: Acute (2) Right heart failure: The sepsis coupled with respiratory failure/COPD exacerbation might have caused the right heart failure. The echocardiogram could not calculate the PA pressure. For further evaluation of the right-sided hemodynamics, a right heart catheterization would be helpful. Status: Acute (3) Septic shock: Patient was on IV antibiotics and vasopressors as of now, all the vasopressors are discontinued. Status: Acute (4) Acute respiratory failure with hypoxia: Patient's respiratory status has improved. She is remaining afebrile. Currently she is on room air. Status: Acute (5) Benign essential hypertension with target blood pressure below 140/90: Currently the blood pressure is in the normal range. May continue on the current medication. Status: Acute (6) T2DM (type 2 diabetes mellitus): The blood sugar seems to be under control. May currently on the current management. Status: Acute (7) Dyslipidemia: Patient is on atorvastatin. This may be continued. Status: Acute Plan Other problems are Anemia-multifactorial Sleep apnea Morbid obesity The cardiac catheterization scheduled for noon. Based on the results, further recommendations will be made. 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
--- NOTE | 2021-09-11 11:00 | W.PM.OPSUD ---
Surgery/Procedure H&P Update DATE OF PROCEDURE: September 11, 2021 DATE H&P PERFORMED: 09/10/21 H&P UPDATE INFORMATION: I have reviewed H&P completed within last 30 days, I have examined patient prior to procedure and No changes to prior documentation PREOP DIAGNOSIS: diagnostic PRIMARY INDICATION FOR PROCEDURE: Patient with heart failure and abnormal Myocardial perfusion imaging PLANNED PROCEDURE: Operation Date: 09/11/21 12:00 Proposed Procedures p Cardiac Catheterization(Left) - aYir Rebollar MD Right and left heart catheterization with right and left coronary angiogram and possible PCI PATIENT REASSESSED PRIOR TO SEDATION, WITH NO CHANGE NOTED: Yes PHYSICAL EXAM: alert, oriented x 3, clear to auscultation bilaterally (Scattered expiratory wheezing bilaterally) and regular rate & rhythm AIRWAY EVAL/ANESTHESIA PLAN: normal airway, see other exam findings, ASA III, Monitored Anesthesia, Local Anesthesia, Risks, benefits & alternatives of sedation and/or procedure discussed and Patient agrees to continue as planned
[2021-09-11] MEDS: diphenhydrAMINE 50 mg Capsule PO (11:10)
--- NOTE | 2021-09-11 11:39 | P.PN_ITS ---
Subjective Subjective: Seen this morning. No acute events overnight. Will go for cardiac catheterization today. Vitals/I&O/Wt Last Vital Signs Temp 98.1 F 09/11/21 07:55 Pulse 71 09/11/21 08:17 Resp 17 09/11/21 08:17 BP 154/81 09/11/21 07:55 Pulse Ox 91 09/11/21 08:17 09/10/21 09/11/21 09/11/21 22:59 06:59 14:59 Intake Total 770 / 1010 0 / 1010 Balance 770 / 1010 0 / 1010 Physical Exam Narrative: General: Alert oriented x3, patient seen sitting up in bed. HEENT: Normocephalic, atraumatic, EOMI, breathing normally with normal respiratory effort on room air Cardio: Regular rate rhythm, normal S1-S2, no murmurs Respiratory: Good bilateral air entry, no wheezes no rhonchi appreciated GI: Abdomen soft, nontender, nondistended, bowel sounds + Behavior: Appropriate and cooperative Extremities: Trace pitting edema bilateral lower extremities, no cyanosis Urinary Catheter Management: Sanchez: Cath Placed During This Visit: yes, but has since been removed by the nurse Reason for Continuing Indwelling Catheter: Decision to DC Catheter Urinary Catheter Date of Insertion: 09/06/21 Urinary Catheter Time of Insertion: 07:27 Date Urinary Catheter Removed: 09/10/21 Time Urinary Catheter Discontinued: 14:15 Data : 09/10/21 06:41 09/11/21 01:43 Micro: Microbiology 09/05/21 22:50 Blood Culture - Final Blood NO GROWTH AFTER 5 DAYS 09/05/21 22:45 Blood Culture - Final Blood NO GROWTH AFTER 5 DAYS A&P Assessment and plan (1) Dyslipidemia: Status: Acute (2) T2DM (type 2 diabetes mellitus): Status: Acute (3) Benign essential hypertension with target blood pressure below 140/90: Status: Acute (4) Abnormal cardiovascular stress test: Status: Acute (5) Obesity (BMI 30-39.9): Status: Acute (6) Asthma: Status: Acute Qualifiers: Asthma severity: mild Asthma persistence: intermittent Asthma complication type: uncomplicated Qualified Code(s): J45.20 - Mild intermittent asthma, uncomplicated (7) Right heart failure: Status: Acute (8) YOLANDA (acute kidney injury): Status: Acute (9) Community acquired pneumonia: Status: Acute (10) COPD (chronic obstructive pulmonary disease): Status: Acute Qualifiers: COPD type: unspecified COPD Qualified Code(s): J44.9 - Chronic obstructive pulmonary disease, unspecified Plan #Septic shock 2/2 Community-acquired pneumonia - sepsis resovled. #Acute hypoxic respiratory failure #COPD #Obstructive sleep apnea #PE ruled out. #Right-sided heart failure, hypokinetic right ventricle #Acute kidney injury - resolved #Hypokalemia- resolve d #Hypophosphatemia - resolved - Continue ceftriaxone. Will switch to oral at discharge. Discontinue azithromy dale. - Bacterial Ag negative, MRSA nares negative, Bcx NTD, Delta trop negative - CTA ruled out PE. Pulm consulted.? Appreciate recommendations.? - Lovenox 110 BID discontinued - Delta Trop negative. EKG non-ischemic - Abnormal stress test. Cath today. Cardiology on board. - YOLANDA resolved - Continue gentle hydration. - Insulin SSI - Hold Klonopin. 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
[2021-09-11 11:56] LABS: Glucose Point of Care 112 mg/dL (70-110)
--- NOTE | 2021-09-11 12:46 | PM.DCS ---
Discharge Providers Date of Admission: 09/06/21 00:15 Date of Discharge: September 11, 2021 Attending Provider at Admission: Ariana Zavala MD Attending Provider at Discharge: Jaycee Reynaga MD Primary Care Provider: RICHAR Hawk Diagnoses at Discharge Discharge Diagnosis (1) Dyslipidemia: Status: Acute (2) T2DM (type 2 diabetes mellitus): Status: Acute (3) Benign essential hypertension with target blood pressure below 140/90: Status: Acute (4) Abnormal cardiovascular stress test: Status: Acute (5) Obesity (BMI 30-39.9): Status: Acute (6) Asthma: Status: Acute Qualifiers: Asthma complication type: uncomplicated Asthma persistence: intermittent Asthma severity: mild Qualified Code(s): J45.20 - Mild intermittent asthma, uncomplicated (7) YOLANDA (acute kidney injury): Status: Resolved (8) Community acquired pneumonia: Status: Acute Reason for Visit Reason for Visit: sob, cough Brief History: As per HPI Kavin Robb is a 60 year old female?with PMH asthma, COPD, DIAZ, morbid obesity dyslipidemia, hypertension, diabetes, gout presenting to the emergency room today with chief complaints of generalized fatigue, malaise, cough with expectoration and progressively increasing dyspnea over the past 4 to 5 days.? She has a new oxygen requirement of 3 L/min today.? Typically does not wear oxygen.? Has a past history of COPD and has been using her inhalers, however has not found significant relief.? Complains of subjective fever present.? States she has additionally not taken her Lasix over the past 4 to 5 days because she has been feeling so fatigued and unable to get out of bed.? Over the past 2 days she has additionally developed pain over left side of her chest, made worse by movement and deep breathing.? Pain is nonradiating, 5-6 on 10 in intensity. Chest x-ray today showed a left lower lobe pneumonia, ABG with hypoxia, soft blood pressure with systolic ranging between 80-90.? Patient states she has been told that she has spot on her lung which was evaluated with a PET scan few years ago, however unable to recall any other details at this time. Hospital Course Hospital Course Patient was admitted for generalized fatigue, malaise, cough. She was diagnosed with community-acquired pneumonia and had septic shock requiring vasopressor support and eventually stress dose steroids. She was placed on vancomycin and cefepime. Patient was also seen by pulmonology in consultation for right-sided heart failure, hypokinetic right ventricle which was most likely secondary to sepsis. Initially at admission there was suspicion of PE therefore she was covered with therapeutic lovenox which was discontinued after PE ruled out by CTA. Stress test was completed which was abnormal it did show an area of reversible perfusion defect therefore she underwent cardiac catheterization which did not reveal any obstructive coronary artery disease.Bacterial Ag negative, MRSA nares negative, Bcx NTD, Delta trop negative- CTA ruled out PE. Pulm consulted.? Patient encouraged to wear her CPAP at night for her obstructive sleep apnea. Pt improved and oxygen was weaned off. She will be sent home in stable condition with some medication adjustments. Please see med list. She was advised to stop atenolol and take amlodipine 5 mg daily for now and to check BP at home and keep a log sheet. Amlodipine 10 mg tablets were prescribed. She will titrate at home and follow up with PCP. I had a long discussion with her explaining her each and every medication personally. She did see Dr. Raymond in clinic last year and a lot of work-up was ordered including pulmonary function testing, connective tissue disease work-up, sleep study but patient did not complete any of it. This time she says she will get the work-up completed and follow-up with pulmonology, cardiology as an outpatient. We gave her prescription to recheck cardiac echo in 2 weeks to reevaluate for right ventricular function. At this point after all work-up completed most likely this was due to sepsis. As per discussion with hand heel seat fitter no evidence of pulmonary hypertension on cardiac cath. Final report is pending. Physical Exam Narrative: General: Alert oriented x3, patient seen sitting up in bed. HEENT: Normocephalic, atraumatic, EOMI, breathing normally with normal respiratory effort on room air Cardio: Regular rate rhythm, normal S1-S2, no murmurs Respiratory: Good bilateral air entry, no wheezes no rhonchi appreciated GI: Abdomen soft, nontender, nondistended, bowel sounds + Behavior: Appropriate and cooperative Extremities: Trace pitting edema bilateral lower extremities, no cyanosis Urinary Catheter Management: Sanchez: Cath Placed During This Visit: yes, but has since been removed by the nurse Reason for Continuing Indwelling Catheter: Decision to DC Catheter Urinary Catheter Date of Insertion: 09/06/21 Urinary Catheter Time of Insertion: 07:27 Date Urinary Catheter Removed: 09/10/21 Time Urinary Catheter Discontinued: 14:15 Discharge Data Studies Completed and Pending Completed Studies During Hospitalization Category Date Time Status CTA chest [CT angio chest PE protcl [id number]] Routine Cat Scan 09/07/21 09:00 Completed Sestamibi Stress Test Request Routine Exams 09/10/21 07:00 Completed XR chest 1V portable [id number] Urgent Exams 09/05/21 21:13 Completed NM bernice perf SPECT r/s* [id number] Routine Nuc Med 09/10/21 11:49 [place] [id number] Routine Ultrasound 09/06/21 06:15 Completed CV. echo complete* [id number] Routine Ultrasound 09/06/21 06:53 Completed Pending at discharge Category Date Time Status [employer] request for service Routine Exams 09/11/21 08:11 Ordered ABG ONLY [Arterial Blood Gas W/O Coox] Routine Lab 09/11/21 11:09 Ordered ABG ONLY [Arterial Blood Gas W/O Coox] Routine Lab 09/11/21 11:11 Ordered ABG ONLY [Arterial Blood Gas W/O Coox] Routine Lab 09/11/21 11:12 Ordered ABG ONLY [Arterial Blood Gas W/O Coox] Routine Lab 09/11/21 11:15 Ordered Sputum Culture and Gram Stain Routine Lab 09/06/21 02:46 Uncollected Sputum Culture and Gram Stain Routine Lab 09/08/21 08:05 Uncollected Radiology Impressions Chest X-Ray 09/05/21 21:13 IMPRESSION: Patchy pneumonia or aspiration in the left lung. Chest CTA 09/07/21 09:00 IMPRESSION: 1. Proximal main pulmonary arteries are normal. No evidence of pulmonary embolus. 2. Dense airspace consolidation involving the LEFT lower lobe with air bronchograms and a small amount of peripheral loculated pleural fluid. Findings compatible with pneumonia. Recommend follow-up to resolution to exclude underlying malignancy. 3. Bulky Anterior mediastinal peribronchial and subcarinal lymphadenopathy. 4. RIGHT lung is well aerated. 5. Prior cholecystectomy. Notified Nellie Quezada MD at 09/07/2021 3:43 PM. Laboratory Results WBC 6.9 10^3/uL (4.0-10.0) 09/10/21 06:41 RBC 3.82 10^6/uL (4.1-5.3) L 09/10/21 06:41 Hgb 10.9 g/dL (11.5-15.3) L 09/10/21 06:41 Hct 35.1 % (37.0-47.0) L 09/10/21 06:41 MCV 91.9 fl (81-99) 09/10/21 06:41 MCH 28.5 pg (28.0-34.0) 09/10/21 06:41 MCHC 31.1 g/dL (30.0-36.0) 09/10/21 06:41 RDW 13.4 % (12.1-15.1) 09/10/21 06:41 Plt Count 239 10^3/cmm (130-400) 09/10/21 06:41 MPV 10.0 fL (7.4-10.4) 09/10/21 06:41 Neut % (Auto) 44.5 % 09/10/21 06:41 Lymph % (Auto) 30.8 % 09/10/21 06:41 Early % (Auto) 9.2 % 09/10/21 06:41 Eos % (Auto) 2.3 % 09/10/21 06:41 Baso % (Auto) 0.6 % 09/10/21 06:41 Neut # (Auto) 3.05 10^3/uL (1.8-7.7) 09/10/21 06:41 Lymph # (Auto) 2.1 10^3/uL (0.8-4.8) 09/10/21 06:41 Early # (Auto) 0.6 10^3/uL (0.2-0.9) 09/10/21 06:41 Eos # (Auto) 0.2 10^3/uL (0.0-0.8) 09/10/21 06:41 Baso # (Auto) 0.0 10^3/uL (0.0-0.1) 09/10/21 06:41 Nucleated RBC % (auto) 0 % 09/10/21 06:41 Total Counted 100 (0-100) 09/05/21 22:10 Atypical Lymphs % 0.0 % (0-5) 09/05/21 22:10 Absolute Neutrophils 7.1 10^3/cmm (1.4-6.5) H 09/05/21 22:10 Segmented Neutrophils 69 % 09/05/21 22:10 Abs Segm Neuts (Man) 5.3 10/cmm (1.6-7.1) 09/05/21 22:10 Band Neutrophils 23.0 % 09/05/21 22:10 Abs Band Neuts (Man) 1.8 10^3/cmm (0.0-1.2) H 09/05/21 22:10 Absolute Lymphocytes 0.5 10^3/cmm (1.2-3.4) L 09/05/21 22:10 Lymphocytes (Manual) 7 % 09/05/21 22:10 Monocytes (Manual) 1.0 % 09/05/21 22:10 Absolute Monocytes 0.1 10^3/cmm (0.1-0.6) 09/05/21 22:10 Eosinophils (Manual) 0 % 09/05/21 22:10 Absolute Eosinophils 0.0 10^3/cmm (0.0-0.7) 09/05/21 22:10 Basophils (Manual) 0.0 % 09/05/21 22:10 Absolute Basophils 0.0 10^3/cmm (0.0-0.2) 09/05/21 22:10 Nucleated RBCs # 0.0 /100WBC 09/10/21 06:41 Toxic Vacuolation 1+ H 09/05/21 22:10 Platelet Estimate Normal (Normal) 09/05/21 22:10 PT 14.80 SECONDS (12.1-14.9) 09/07/21 05:10 INR 1.13 (0.8-1.2) 09/07/21 05:10 APTT 34.9 SECONDS (23.9-36.7) 09/07/21 05:10 D-Dimer 1.20 ug/mIFEU (0-0.59) H 09/05/21 22:10 Specimen Type Arterial 09/05/21 21:28 Sample Site Radial, left 09/05/21 21:28 ABG pH 7.47 (7.35-7.45) H 09/05/21 21:28 ABG pCO2 30.5 mmHg (35-45) L 09/05/21 21:28 ABG pO2 77.1 mmHg (80.0-100.0) L 09/05/21 21:28 ABG HCO3 22.0 mmol/L (22-26) 09/05/21 21:28 ABG Base Excess -0.9 mmol/L (-2.0-2.0) 09/05/21 21:28 Fuad Test Pos 09/05/21 21:28 Hematocrit 37.7 % (37-47) 09/05/21 21:28 Hgb O2 Saturation 94.5 % (95-100) L 09/05/21 21:28 Carboxyhemoglobin 1.1 %THgb (0.4-20.1) 09/05/21 21:28 Methemoglobin 1.0 % (0.4-1.5) 09/05/21 21:28 Total Hemoglobin 12.3 g/dL (12-16) 09/05/21 21:28 O2 Delivery Device Nc 09/05/21 21:28 O2 Liters/Min 2.5 % 09/05/21 21:28 Treasury Associate ID [place] 09/05/21 21:28 Sodium 140 mmol/L (136-145) 09/11/21 01:43 Potassium 3.0 mmol/L (3.5-5.1) L 09/11/21 01:43 Chloride 104 mmol/L (98-107) 09/11/21 01:43 Carbon Dioxide 26 mmol/L (22-29) 09/11/21 01:43 Anion Gap 13.0 (5-19) 09/11/21 01:43 BUN 8 mg/dL (8-23) 09/11/21 01:43 Creatinine 0.7 mg/dL (0.5-0.9) 09/11/21 01:43 GFR Calculation 84.8 mL/min (90-130) L 09/11/21 01:43 Glucose 112 mg/dL (65-115) 09/11/21 01:43 POC Glucose 112 mg/dL (70-110) H 09/11/21 11:43 Estimat Average Glucose 108 09/07/21 05:10 Hemoglobin A1c 5.4 % (4.0-6.0) 09/07/21 05:10 Serum Osmolality 293 mOsm/kg (278-305) 09/06/21 04:18 Calculated Osmolality 289 mOsm/kg (285-295) 09/11/21 01:43 Lactic Acid 2.5 mmol/L (0.5-2.2) H 09/05/21 22:10 Lactic Acid (Sepsis) 2.2 mmol/L (0.5-2.2) 09/06/21 08:21 Calcium 8.8 mg/dL (8.5-10.5) 09/11/21 01:43 Phosphorus 2.4 mg/dL (2.5-4.5) L 09/07/21 05:10 Magnesium 2.1 mg/dL (1.7-2.3) 09/11/21 01:43 Total Bilirubin 0.2 mg/dL (0.15-1.2) 09/08/21 11:10 AST 8 U/L (0-32) 09/08/21 11:10 ALT 7 U/L (0-33) 09/08/21 11:10 Alkaline Phosphatase 106 IU/L (35-105) H 09/08/21 11:10 Troponin T Baseline 6 ng/L (0-10) 09/05/21 22:10 Troponin T 120 Minute 6.00 ng/L (0-10) 09/06/21 00:10 Delta Troponin T 0 ABS# (0-10) 09/06/21 00:10 Troponin T Hi Sens 6Hr 6.35 ng/L (0-10) 09/06/21 04:18 Troponin T Hi Sens 6Hr Delta 0.35 ng/L (0-12) 09/06/21 04:18 NT-Pro-B Natriuret Pep 1349 pg/mL (0-125) H 09/05/21 22:10 Total Protein 5.5 g/dL (6.6-8.7) L 09/08/21 11:10 Albumin 2.6 g/dL (3.5-5.2) L 09/08/21 11:10 Globulin 2.9 g/dL (1.3-4.6) 09/08/21 11:10 Procalcitonin 8.96 ng/mL (0-0.5) H 09/06/21 04:18 Random Cortisol 8.57 ug/dL (2.47-19.5) 09/07/21 05:10 Urine Color Yellow (Yellow) 09/07/21 18:40 Urine Appearance Clear (CLEAR) 09/07/21 18:40 Urine pH 6 (5-7) 09/07/21 18:40 Ur Specific [place] 1.000 (1.005-1.030) L 09/07/21 18:40 Urine Protein Neg (Negative) 09/07/21 18:40 Urine Glucose (UA) Norm (Normal) 09/07/21 18:40 Urine Ketones Negative (Negative) 09/07/21 18:40 Urine Blood 2+ (Negative) H 09/07/21 18:40 Urine Nitrate Negative (Negative) 09/07/21 18:40 Urine Bilirubin Neg (Negative) 09/07/21 18:40 Urine Urobilinogen Norm mg/dL (Negative) 09/07/21 18:40 Ur Leukocyte Esterase Negative (Negative) 09/07/21 18:40 Urine RBC 0-4 /hpf (0-2) H 09/07/21 18:40 Urine WBC 0-4 /hpf (0-5) H 09/07/21 18:40 Ur Squamous Epith Cells 0-4 /hpf (0-5) H 09/07/21 18:40 Amorphous Sediment Not Reportable 09/07/21 18:40 Urine Bacteria 1+ /hpf (NONE) H 09/07/21 18:40 Urine Osmolality 413 mOsm/kg (50-1200) 09/07/21 18:40 Ur Random Sodium 24 mmol/L 09/07/21 18:40 Ur Random Potassium 80 mmol/L 09/06/21 07:15 Ur Random Chloride < 10 mmol/L 09/06/21 07:15 Urine Creatinine 218 mg/dL (28-217) H 09/06/21 07:15 Vancomycin Trough < 4.0 ug/mL (10-15) L 09/08/21 07:16 Coronavirus 229E (PCR) Not detected (NOT DETECT) 09/05/21 22:16 SARS-CoV-2 (PCR) Not detected (NOT DETECT) 09/05/21 22:16 Vitals Last Vital Signs Temp 98.3 F 09/11/21 11:59 Pulse 82 09/11/21 11:59 Resp 16 09/11/21 11:59 BP 143/85 09/11/21 11:59 Pulse Ox 92 09/11/21 11:59 Discharge Plan Discharge Patient Disposition: Home Condition: Stable Prescriptions: New amlodipine 10 mg tablet 10 mg PO DAILY 30 Days Qty: 30 0RF Lasix 20 mg tablet 20 mg PO DAILY 30 Days Qty: 30 0RF potassium chloride 10 mEq capsule, extended release 10 meq PO DAILY 30 Days Qty: 30 0RF amoxicillin-pot clavulanate 875-125 mg tablet 1 tab PO BID 5 Days Qty: 10 0RF Continued albuterol sulfate 2.5 mg /3 mL (0.083 %) solution for nebulization 2.5 mg INHALATION TID PRN (Reason: shortness of breath or wheezing) 0RF atorvastatin 40 mg tablet 40 mg PO DAILY 0RF cetirizine 10 mg capsule 10 mg PO DAILY 0RF ergocalciferol (vitamin D2) 1,250 mcg (50,000 unit) capsule 1,250 mcg PO Q7D 0RF fluticasone propion-salmeterol 500-50 mcg/dose blister with device 1 inh INHALATION BID 0RF fluticasone propionate 50 mcg/actuation spray,suspension 1 spray INTRANASAL BID 0RF Rx Instructions: administer into each nostril montelukast 10 mg tablet 10 mg PO DAILY 0RF albuterol sulfate [ProAir HFA] 90 mcg/actuation HFA aerosol inhaler 2 puff INHALATION Q6H PRN (Reason: Shortness Of Breath) 0RF allopurinol 100 mg tablet 100 mg PO DAILY 0RF cyanocobalamin (vitamin B-12) 1,000 mcg/mL Solution 1,000 mcg IM Q30D 0RF Changed sertraline 100 mg tablet 100 mg PO DAILY Qty: 0 0RF Held clonazepam 0.5 mg tablet 0.5 mg PO BID PRN (Reason: Anxiety) 0RF Hold Instructions: see pcp before resuming ibuprofen 800 mg tablet 800 mg PO Q8H PRN (Reason: pain) 0RF Hold Instructions: see pcp before resuming metformin 500 mg tablet 500 mg PO BID 0RF Hold Instructions: Resume on 09/14/21. resume on Thursday 09/14 Discontinued atenolol 100 mg tablet 50 mg PO DAILY 0RF furosemide 40 mg tablet 40 mg PO BID 0RF potassium chloride [Klor-Con M20] 20 mEq tablet,ER particles/crystals 20 meq PO DAILY 0RF Discharge Orders: Discharge Order (Routine); Ordered 09/11/21 Ordered By: Jaycee Reynaga Other Ambulatory Orders: Basic Metabolic Panel (Routine) Timeframe: 1 Week Facility: [facility] - Location: Lab - Main Lab Ordered By: Jaycee Reynaga CV. echo complete* [id number] (Routine) Timeframe: 2 Weeks Facility: [facility] - Location: Radiology Ordered By: Jaycee Reynaga Referrals: Karina Girard FNP [Primary Care Provider] - 4-7 days Adwoar,Raz Vazquez MD [Physician] - 2 weeks Yair Rebollar MD [Physician] - 1 month Discharge Diet: Diabetic and Low Salt Discharge Activity: Resume usual activity Patient Instructions: Opioid Safety, Post Angiogram Home Care Instructions Activity Restrictions/Additional Instructions: Please return to ER if you develop any symptoms such as worsening shortness of breath, chest pain, lightheadedness, dizziness, abdominal pain, lower extremity swelling. Please follow up with pulmonology, cardiology and primary care doctor as directed. You did not qualify home oxygen today. Please continue to wear your CPAP at night. Keep monitoring your blood sugar and blood pressure at home and report readings to primary care doctor. Discharge Attestations Time Spent in Discharge Care*: greater than 30 min Quality Metrics Clinical Quality Measures [ No reported AMI, CVA or VTE this stay] Coding Level of Care Code Acute Chg FW DC note Diagnoses Dyslipidemia E78.5 T2DM (type 2 diabetes mellitus) E11.9 Benign essential hypertension with target blood pressure below 140/90 I10 Abnormal cardiovascular stress test R94.39 Obesity (BMI 30-39.9) E66.9 Asthma J45.20 Asthma complication type: uncomplicated Asthma persistence: intermittent Asthma severity: mild YOLANDA (acute kidney injury) N17.9 Community acquired pneumonia J18.9
[2021-09-11 12:51] LABS: ABG PCO2 40.3 mmHg (35-45); Arterial Blood Gas Hematocrit 34.2 % (37-47); Blood Gas Operator Identificat CAK; Blood Gas Sample Type Not specified; HCO3 ABG 24.9 mmol/L (22-26); PO2 ABG 35.2 mmHg (80.0-100.0)
[2021-09-11 12:53] LABS: ABG PCO2 39.4 mmHg (35-45); Base Excess ABG -0.4 mmol/L (-2.0-2.0); Blood Gas Operator Identificat CAK; Blood Gas Sample Type Not specified; HCO3 ABG 24.3 mmol/L (22-26); PO2 ABG 37.4 mmHg (80.0-100.0)
[2021-09-11 12:55] LABS: ABG PH Result 7.39 (7.35-7.45); Base Excess ABG -0.2 mmol/L (-2.0-2.0); Blood Gas Operator Identificat CAK; Blood Gas Sample Type Not specified; HCO3 ABG 24.8 mmol/L (22-26); PO2 ABG 35.1 mmHg (80.0-100.0)
[2021-09-11 12:56] LABS: ABG PCO2 36.4 mmHg (35-45); ABG PH Result 7.42 (7.35-7.45); Arterial Blood Gas Hematocrit 23.7 % (37-47); Base Excess ABG -0.7 mmol/L (-2.0-2.0); Blood Gas Operator Identificat CAK; Blood Gas Sample Type Not specified; HCO3 ABG 23.6 mmol/L (22-26)
[2021-09-11] MEDS: cefTRIAXone 1,000 MG in sodium chloride 0.9% (plus) 50 ML 100 MG IV (16:21)
[2021-09-11 17:16] LABS: Glucose Point of Care 102 mg/dL (70-110)
--- NOTE | 2021-09-11 20:04 | PC.NURSE ---
Discharge Note Patient discharged to home via private vehicle accompanied by Family. Discharge instructions reviewed with patient and/or financial service representative. Mobile pharmacy medications and/or prescriptions provided. Belongings/home medications returned.
== END 2021-09-11 20:03 | disposition home or self-care (01) | DRG 871 ==
LOC: ER 09-06 00:13 → MEDSURG 09-06 00:15 → ICU 09-06 06:38 → MEDSURG 09-09 20:13
PROVIDERS: Hospitalist; Internal Medicine Cardiovascular Disease; Internal Medicine Pulmonary Disease; Admitting Provider Student in an Organized Health Care Education/Training Program; Emergency Provider Emergency Medicine; PCP Nurse Practitioner Family; Visit Provider Internal Medicine
DX: A41.9 Sepsis, unspecified organism (principal); J18.9 Pneumonia, unspecified organism; R65.21 Severe sepsis with septic shock; J96.01 Acute respiratory failure with hypoxia; J44.0 Chronic obstructive pulmonary disease with (acute) lower respiratory infection; N17.9 Acute kidney failure, unspecified; Z68.41 Body mass index [BMI] 40.0-44.9, adult; J45.20 Mild intermittent asthma, uncomplicated; Z87.01 Personal history of pneumonia (recurrent); I10 Essential (primary) hypertension; G47.33 Obstructive sleep apnea (adult) (pediatric); I95.9 Hypotension, unspecified; E66.01 Morbid (severe) obesity due to excess calories; E78.5 Hyperlipidemia, unspecified; E11.9 Type 2 diabetes mellitus without complications; M10.9 Gout, unspecified; Z79.51 Long term (current) use of inhaled steroids; I50.810 Right heart failure, unspecified; Z82.49 Family history of ischemic heart disease and other diseases of the circulatory system; E87.6 Hypokalemia; Z99.89 Dependence on other enabling machines and devices
CPT/HCPCS: 36415; 36416; 36600; 51702; 71045; 71275; 78452; 80048; 80053; 80202; 81001; 82436; 82533; 82570; 82803; 82805; 82962; 83036; 83605; 83735; 83880; 83930; 83935; 84100; 84133; 84145; 84300; 84484; 85007; 85025; 85378; 85610; 85730; 86403; 87040; 87086; 87449; 87635; 87641; 93005; 93017; 93306; 93452; 93453; 93458; 93460; 93970; 94640; 94660; 96360; 96365; 96372; 99152; 99153; 99291; A9500; C1751; C1769; C1887; C1894; J0696; J1644; J1650; J1720; J1815; J1940; J2250; J2543; J2785; J3010; J3370; J3480; J3490; J7030; J7040; J7626; P9041; Q0144; Q0163; Q9967

== ENCOUNTER → 2021-09-28 11:43 | Outpatient (BNVA) | payer OTHER, SELFPAY | PROVIDERS: PCP Nurse Practitioner Family; Visit Provider Internal Medicine Pulmonary Disease | DX: M25.641 Stiffness of right hand, not elsewhere classified (principal); R06.09 Other forms of dyspnea; M25.642 Stiffness of left hand, not elsewhere classified; R06.02 Shortness of breath; G47.33 Obstructive sleep apnea (adult) (pediatric); J45.20 Mild intermittent asthma, uncomplicated | CPT/HCPCS: 36415; 82164; 82785; 85025; 85651; 86003; 86038; 86140; 86200; 86235; 86431 ==

== ENCOUNTER → 2021-11-26 12:03 | Outpatient (BNVA) | payer OTHER, SELFPAY | PROVIDERS: PCP Nurse Practitioner Family; Visit Provider Internal Medicine | DX: L40.9 Psoriasis, unspecified (principal); R76.8 Other specified abnormal immunological findings in serum; M19.042 Primary osteoarthritis, left hand; M19.041 Primary osteoarthritis, right hand; M19.072 Primary osteoarthritis, left ankle and foot; M19.071 Primary osteoarthritis, right ankle and foot; J44.9 Chronic obstructive pulmonary disease, unspecified; J45.909 Unspecified asthma, uncomplicated; M25.641 Stiffness of right hand, not elsewhere classified; M25.642 Stiffness of left hand, not elsewhere classified | CPT/HCPCS: 36415; 72202; 73120; 73620; 80053; 82306; 82310; 82550; 83735; 83970; 84182; 84443; 84550; 85025; 85651; 86140; 86160; 86162; 86200; 86235; 86255; 86376; 86480; 86704; 86803; 87340 ==

== ENCOUNTER 2021-12-08 07:00 | Outpatient (CLI) | payer OTHER, SELFPAY | END 2021-12-08 07:01 | disposition home or self-care (01) | LOC: RT 07:00 | PROVIDERS: PCP Nurse Practitioner Family; Visit Provider Internal Medicine Pulmonary Disease | DX: J45.909 Unspecified asthma, uncomplicated (principal); J44.9 Chronic obstructive pulmonary disease, unspecified; M25.641 Stiffness of right hand, not elsewhere classified; M25.642 Stiffness of left hand, not elsewhere classified | CPT/HCPCS: 94010; 94618; 94726; 94729 ==

== ENCOUNTER 2022-01-21 16:47 | Outpatient (CLI) | payer OTHER, SELFPAY ==
--- NOTE | 2022-01-21 17:00 | CT_ITS ---
WS: [id number] CT CHEST WITHOUT INTRAVENOUS CONTRAST HISTORY: f/u pneumonia TECHNIQUE: Contiguous 5 mm axial imaging performed on the thorax. Coronal and sagittal reformats are submitted. All CT scans at [facility] use at least one of these dose optimization techniques: automated exposure control; mA and/or kV adjustment per patient size (includes targeted exams where dose is matched to clinical indication); or iterative reconstruction. CONTRAST: None DLP: 751.31 mGy.cm COMPARISON: 09/07/2021 Lungs and central airway: Pulmonary hyperexpansion. 4 mm noncalcified pulmonary nodule at the LEFT raymundo ng base. Previously described more dense consolidation in the LEFT lower lobe is resolved. There is m inimal residual pleural thickening in the LEFT lower lobe. Linear platelike areas of atelectasis at t he lingula and LEFT lower lung field. Pleura: No pleural effusions. Heart and pericardium: Mild cardiac enlargement. Mediastinum and adrianna: Mediastinal and hilar lymph nodes are enlarged. These lymph nodes were previous ly described and better visualized as the prior study was performed with IV contrast. The lymph nodes do appear slightly improved in size with the largest measuring up to 14 mm. There is a cluster of ly mph nodes in the subcarinal region. Additional lymph nodes in the anterior mediastinum and in the hil ar regions. Vessels: Minimal atherosclerosis aorta. Mild enlargement of the pulmonary artery. Chest wall and lower neck: No soft tissue masses. Upper abdomen: Small hiatal hernia. Prior cholecystectomy. Hepatic steatosis. Osseous structures: Mild thoracic spondylosis. CT/CT chest wo con [id number] IMPRESSION: 1. Resolution LEFT lower lobe pneumonia since 09/07/2021. 2. There is a very minimal amount of pleural thickening in the LEFT lower lobe . 3. 4 mm noncalcified nodule at the LEFT lung base. 4. Continued but improving mediastinal and hilar lymphadenopathy. Bulky lymph node groups with single lymph node measuring up to 14 mm in diameter.
== END 2022-01-21 16:48 | disposition home or self-care (01) ==
LOC: RAD 16:48
PROVIDERS: PCP Registered Nurse; Visit Provider Internal Medicine Pulmonary Disease
DX: J18.9 Pneumonia, unspecified organism (principal); R91.1 Solitary pulmonary nodule; R59.0 Localized enlarged lymph nodes
CPT/HCPCS: 71250

== ENCOUNTER 2022-02-02 20:00 | Outpatient (CLI) | payer OTHER, SELFPAY | END 2022-02-02 20:01 | disposition home or self-care (01) | LOC: SLEEP 02-03 06:54 | PROVIDERS: PCP Registered Nurse; Visit Provider Internal Medicine Pulmonary Disease | DX: G47.33 Obstructive sleep apnea (adult) (pediatric) (principal) | CPT/HCPCS: 95811 ==

== ENCOUNTER 2023-08-09 10:08 | Emergency (ER) | payer OTHER, SELFPAY ==
[2023-08-09 10:23] VITALS: BP 133/77; PULSE 56; RESP 16; TEMP 36.7; O2SAT 95; BMI 42.4
--- NOTE | 2023-08-09 11:12 | XRR_ITS ---
PROCEDURE INFORMATION: Exam: XR Left Elbow Exam date and time: 08/09/2023 11:19 AM Age: 62 years old Clinical indication: Injury or trauma; Fall; Blunt trauma (contusions or hematomas); Prior surgery; Surgery date: 6+ months; Surgery type: Left elbow/forearm nerves; Additional info: Pain TECHNIQUE: Imaging protocol: Radiologic exam of the left elbow. Views: 3 or more views. COMPARISON: US soft tissue/extremity [id number] 01/09/2021 11:17 AM FINDINGS: Bones/joints: No acute fracture or dislocation. Mild spurring of the ulna. Soft tissues: Normal. XR/XR elbow LT min 3V* [id number] IMPRESSION: No acute fracture or dislocation.
[2023-08-09 11:37] VITALS: BP 149/89; PULSE 72; O2SAT 97
--- NOTE | 2023-08-09 11:43 | W.ED.EXTPRO ---
HPI - Extremity Problem General: Chief complaint: Extremity Injury, Upper Stated complaint: swelling, right arm pain, fall Time Seen by Provider: 08/09/23 11:12 Source: patient Mode of arrival: ambulatory History of Present Illness: 62-year-old female presents emergency room complaining of left elbow pain. Few months ago patient had a ulnar nerve transplant. She was walking yesterday had her head on the handrail with her left hand she missed the last step and twisted and pulled on the elbow. She is complaining of pain in the elbow with flexion. She has chronic numbness in the ulnar nerve distribution in her hand and distal forearm that is mostly unchanged. She still is able to flex and extend his fingers without difficulty. Denies any other injury did not fall on an outstretched hand. Associated symptoms: Deny chest pain, fever(s) or rash Review of Systems Const: Denies: fever(s) or chills Card: Denies: chest pain Resp: Denies: dyspnea GI: Denies: abdominal pain Musc: Denies: neck pain or back pain Skin/Breast: Denies: rash PFSH ED PFSH: Medical History Shoulder arthritis Compression neuropathy Right heart failure Colon polyps Gout Hypertension Sleep apnea Asthma COPD (chronic obstructive pulmonary disease) Surgical History History of bladder surgery History of surgical removal of ganglion cyst History of tubal ligation H/O colonoscopy (01/09/21) H/O total hysterectomy History of cholecystectomy Social History Smoking and tobacco/nicotine status: never used tobacco/nicotine Second hand smoke exposure: No Physical Exam Const: GENERAL APPEARANCE: cooperative and comfortable ORIENTATION/CONSCIOUSNESS: Yes awake, Yes oriented to person, Yes oriented to place and Yes oriented to time HENMT: COMMON NORMALS: normocephalic, atraumatic and hearing grossly normal bilaterally HEAD & SCALP: normocephalic and atraumatic Resp: COMMON NORMALS: normal respiratory effort, No retractions, No use of accessory muscles and clear to auscultation bilaterally AUSCULTATION: clear to auscultation bilaterally Cardio: COMMON NORMALS: regular rate, regular rhythm and No murmurs present (Cardio) RATE: regular rate RHYTHM: regular rhythm Extremity: COMMON NORMALS: normal to inspection, capillary refill normal, no clubbing, cyanosis or edema, no calf tenderness and no pedal edema OTHER: Right upper extremity neurovascularly intact. Mildly diminished sensation in the distribution of the ulnar nerve in the hand and fingertips however patient states it has been her baseline since her surgery and is unchanged. 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 Given her description I believe she sprained her elbow there is no neurologic deficit no nerve injury at this point. Will go ahead and discharge her patient home anti-inflammatories her symptoms are improved at this time. Will follow-up with her primary care if she has any worsening or persistence of symptoms Medical Records I reviewed the patient's medical records. Lab Data I reviewed the patient's lab results. Radiology Impressions Elbow X-Ray 08/09/23 11:12 IMPRESSION: No acute fracture or dislocation. All radiology interpretation(s) finalized by discharge Discharge Plan Discharge Patient Disposition: Home Clinical Impression: Elbow sprain Condition: Stable Prescriptions: New diclofenac sodium 75 mg tablet,delayed release (DR/EC) 75 mg PO Q12H PRN (Reason: pain) Qty: 20 0RF Discontinued ibuprofen 800 mg tablet 800 mg PO Q8H PRN (Reason: pain) Hold Instructions: see pcp before resuming No Action albuterol sulfate 2.5 mg /3 mL (0.083 %) solution for nebulization 2.5 mg INHALATION TID PRN (Reason: shortness of breath or wheezing) atorvastatin 40 mg tablet 40 mg PO DAILY clonazepam 0.5 mg tablet 0.5 mg PO BID PRN (Reason: Anxiety) Hold Instructions: see pcp before resuming ergocalciferol (vitamin D2) 1,250 mcg (50,000 unit) capsule 1,250 mcg PO Q7D montelukast 10 mg tablet 10 mg PO DAILY albuterol sulfate [ProAir HFA] 90 mcg/actuation HFA aerosol inhaler 2 puff INHALATION Q6H PRN (Reason: Shortness Of Breath) metformin 500 mg tablet 500 mg PO BID Hold Instructions: Resume on 09/14/21. resume on Thursday 09/14 allopurinol 100 mg tablet 100 mg PO DAILY cetirizine [Zyrtec] 10 mg tablet 10 mg PO DAILY PRN ipratropium-albuterol 0.5 mg-3 mg(2.5 mg base)/3 mL solution for nebulization 3 ml inhalation Q6H PRN (Reason: wheezing) Qty: 90 3RF potassium chloride 10 mEq tablet extended release 10 meq PO DAILY prednisone 20 mg tablet 20 mg PO DAILY Qty: 5 0RF azithromycin [Zithromax TRI-VALERI] 500 mg tablet 500 mg PO DAILY 5 Days Qty: 5 0RF Lasix 20 mg tablet 10 mg PO BID amlodipine 10 mg tablet 10 mg PO DAILY red yeast rice 600 mg tablet 600 mg PO DAILY Rx Instructions: give with meal/snack Dulera 100-5 mcg/actuation HFA aerosol inhaler 2 puff inhalation BID azelastine-fluticasone 137-50 mcg/spray spray,non-aerosol 1 spray intranasal BID Qty: 23 6RF Rx Instructions: administer into each nostril colchicine 0.6 mg tablet 0.6 mg PO .COMPLEX Qty: 30 0RF Rx Instructions: take orally 1-2 tablet daily prn for flare for 5 days; cyanocobalamin (vitamin B-12) 1,000 mcg/mL Solution 1,000 mcg IM Q30D sertraline 100 mg tablet 100 mg PO DAILY Qty: 0 0RF Discharge Orders: Discharge ED (Routine); Ordered 08/09/23 Ordered By: Brent Wade Referrals: Barbie Garay [Primary Care Provider] - Patient Instructions: Opioid Safety, Pain Management Activity Restrictions/Additional Instructions: Thank you for choosing [facility] your healthcare needs today. It is very important that you follow up as instructed or that you return to the Emergency Department should you have concerns or if your condition changes or worsens in any way. You were seen today after some discomfort to your left elbow. X-ray was unremarkable. No significant findings noted. Given your description of the incident and the previous surgery had there does not appear to be any injury related to that surgery at this time. You can use diclofenac as needed. Hold on taking any ibuprofen when taking diclofenac. Follow-up with your primary care doctor as needed. Coding Level of Care Code ED Electronic Parts Salesperson for Rachel Lyons
== END 2023-08-09 12:19 | disposition home or self-care (01) ==
PROVIDERS: Emergency Provider Family Medicine; PCP Nurse Practitioner Family
DX: S53.401A Unspecified sprain of right elbow, initial encounter (principal); I10 Essential (primary) hypertension; J44.9 Chronic obstructive pulmonary disease, unspecified; X50.9XXA Other and unspecified overexertion or strenuous movements or postures, initial encounter; Z94.89 Other transplanted organ and tissue status
CPT/HCPCS: 73080; 99283

== ENCOUNTER 2023-08-29 12:15 | Emergency (ER) | payer OTHER, SELFPAY ==
[2023-08-29 12:19] VITALS: BP 121/71; PULSE 64; RESP 17; TEMP 36.6; O2SAT 97; BMI 43.2
--- NOTE | 2023-08-29 14:38 | ED_ITS ---
HPI - Extremity Problem General: Chief complaint: Extremity Injury, Lower Stated complaint: Left leg pain Time Seen by Provider: 08/29/23 13:52 Source: patient Mode of arrival: ambulatory Limitations: no limitations History of Present Illness: Patient is a 62-year-old female presents to ED today with complaint of posterior left knee pain that she has had over the past 3 to 4 days. Patient states she was seen at a [facility] and had x-rays of the knee performed which were reportedly unremarkable. She states since then she has continued to have pain to her posterior knee and is concerned about a possible DVT and family is concerned about a possible Briones's cyst. Patient states she has follow-up with her primary care provider in 2 days. She has not noticed any color/temp changes to leg. Does have some paresthesias to lower leg. No known injury/trauma. MD Complaint: extremity pain Onset (ago): day(s) Pain Consistency: constant Location: left and knee Radiation: none Relieving factors: immobilization Exacerbating factors: walking Associated symptoms: Reports no associated symptoms; Deny chest pain, fever(s) or rash Review of Systems Const: Denies: fever(s), chills, body aches, fatigue or malaise Card: Denies: chest pain Resp: Denies: dyspnea Musc: Reports: joint pain (L knee); Denies: neck pain, back pain, extremity pain, extremity swelling or joint swelling Skin/Breast: Denies: rash Neuro: Reports: sensory changes and difficulty walking (secondary to knee pain); Denies: headache(s), numbness in extremities or weakness in extremities [facility] ED PFSH: Medical History Shoulder arthritis Compression neuropathy Right heart failure Colon polyps Gout Hypertension Sleep apnea Asthma COPD (chronic obstructive pulmonary disease) Surgical History History of bladder surgery History of surgical removal of ganglion cyst History of tubal ligation H/O colonoscopy (01/09/21) H/O total hysterectomy History of cholecystectomy Social History Smoking and tobacco/nicotine status: never used tobacco/nicotine Second hand smoke exposure: No Physical Exam Const: COMMON NORMALS: no acute distress, patient oriented x3, no limitations, alert and well nourished GENERAL APPEARANCE: cooperative NUTRITIONAL APPEARANCE: obese morbidly obese (BMI 43.3) Extremity: COMMON NORMALS: normal to inspection, full ROM, capillary refill normal, no joint enlargement, no clubbing, cyanosis or edema, no calf tenderness and no pedal edema GENERAL: Yes normal exam except as noted LEFT LOWER EXTREMITY: Yes knee joint (TTP posterior knee) Left knee: Yes ROM (normal), Yes neurovascular exam (normal) and Yes other (no calf pain/swelling; negative Nate's) Neuro: COMMON NORMALS: patient oriented x3, moves all extremities, no focal motor deficits and no sensory deficits noted SENSORIUM/ORIENTATION: Yes alert Skin: COMMON NORMALS: no rashes or lesions noted GENERAL SKIN EXAM: no rashes or lesions noted Course Vital Signs: Vital signs: Vital Signs Temperature 97.9 F 08/29/23 12:19 Pulse Rate 64 08/29/23 12:19 Respiratory Rate 17 08/29/23 12:19 Blood Pressure 121/71 08/29/23 12:19 Pulse Oximetry 97 08/29/23 12:19 Oxygen Delivery Me thod Room Air 08/29/23 12:19 MDM - Extremity (Nontraumatic) Medical Decision Making US prelim report negative for DVT/Briones's. Will have her follow up with PCP on Tuesday as scheduled. Medical Records I reviewed the patient's medical records. XR interpretation done by ED provider, pending radiology final review Discharge Plan Discharge Patient Disposition: Home Clinical Impression: Posterior left knee pain Condition: Stable Prescriptions: No Action albuterol sulfate 2.5 mg /3 mL (0.083 %) solution for nebulization 2.5 mg INHALATION TID PRN (Reason: shortness of breath or wheezing) atorvastatin 40 mg tablet 40 mg PO DAILY clonazepam 0.5 mg tablet 0.5 mg PO BID PRN (Reason: Anxiety) Hold Instructions: see pcp before resuming ergocalciferol (vitamin D2) 1,250 mcg (50,000 unit) capsule 1,250 mcg PO Q7D montelukast 10 mg tablet 10 mg PO DAILY albuterol sulfate [ProAir HFA] 90 mcg/actuation HFA aerosol inhaler 2 puff INHALATION Q6H PRN (Reason: Shortness Of Breath) metformin 500 mg tablet 500 mg PO BID Hold Instructions: Resume on 09/14/21. resume on Thursday 09/14 allopurinol 100 mg tablet 100 mg PO DAILY cetirizine [Zyrtec] 10 mg tablet 10 mg PO DAILY PRN ipratropium-albuterol 0.5 mg-3 mg(2.5 mg base)/3 mL solution for nebulization 3 ml inhalation Q6H PRN (Reason: wheezing) Qty: 90 3RF potassium chloride 10 mEq tablet extended release 10 meq PO DAILY prednisone 20 mg tablet 20 mg PO DAILY Qty: 5 0RF azithromycin [Zithromax TRI-VALERI] 500 mg tablet 500 mg PO DAILY 5 Days Qty: 5 0RF Lasix 20 mg tablet 10 mg PO BID amlodipine 10 mg tablet 10 mg PO DAILY red yeast rice 600 mg tablet 600 mg PO DAILY Rx Instructions: give with meal/snack Dulera 100-5 mcg/actuation HFA aerosol inhaler 2 puff inhalation BID azelastine-fluticasone 137-50 mcg/spray spray,non-aerosol 1 spray intranasal BID Qty: 23 6RF Rx Instructions: administer into each nostril colchicine 0.6 mg tablet 0.6 mg PO .COMPLEX Qty: 30 0RF Rx Instructions: take orally 1-2 tablet daily prn for flare for 5 days; cyanocobalamin (vitamin B-12) 1,000 mcg/mL Solution 1,000 mcg IM Q30D sertraline 100 mg tablet 100 mg PO DAILY Qty: 0 0RF diclofenac sodium 75 mg tablet,delayed release (DR/EC) 75 mg PO Q12H PRN (Reason: pain) Qty: 20 0RF Discharge Orders: Discharge ED (Routine); Ordered 08/29/23 Ordered By: Halle Almanza Referrals: Barbie Garay [Primary Care Provider] - Activity Restrictions/Additional Instructions: As we discussed please follow-up with your primary care provider on Tuesday as scheduled. Your ultrasound today was negative for DVT/Briones's cyst. Coding Level of Care Code ED Pharmacovigilance Safety Expert for Rachel Lyons
--- NOTE | 2023-08-29 14:47 | USCV_ITS ---
Kavin Robb Age: 62 Gender: F : 1960 Exam Date: 08/29/2023 14:57 Ordering Phys: Halle Almanza Technologist: JOAQUIN [place] [facility] [place] Pain HISTORY: Lower extremity pain. PROCEDURES: Venous duplex imaging was performed in only the left lower extremity. The following venous structures were evaluated: common femoral vein, profunda vein, proximal portion of the greater saphenous vein, superficial femoral vein, and the popliteal vein. In addition, the posterior tibial and peroneal trunk were evaluated. Serial compression, augmentation maneuvers, and spectral Doppler flow evaluation were performed. FINDINGS: No evidence of DVT seen in any vessel visualized at this time. CONCLUSIONS No evidence of left lower extremity DVT. Yuval Brice MD (Electronically Signed) Final Date: 29 August 2023 15:47 S
[2023-08-29 15:40] VITALS: BP 119/70; PULSE 61; RESP 16; TEMP 36.6; O2SAT 98
== END 2023-08-29 15:41 | disposition home or self-care (01) ==
PROVIDERS: Emergency Provider Physician Assistant; PCP Nurse Practitioner Family
DX: M25.562 Pain in left knee (principal); Z79.84 Long term (current) use of oral hypoglycemic drugs; I11.0 Hypertensive heart disease with heart failure; I50.810 Right heart failure, unspecified; J44.9 Chronic obstructive pulmonary disease, unspecified
CPT/HCPCS: 93971; 99284

== ENCOUNTER 2024-02-24 09:06 | Outpatient (RCR) | payer MEDICARE, BC, SELFPAY | END 2024-03-23 23:59 | disposition home or self-care (01) | LOC: SOT 09:06 | PROVIDERS: Visit Provider Orthopaedic Surgery | DX: M72.0 Palmar fascial fibromatosis [Dupuytren] (principal); M65.341 Trigger finger, right ring finger; G56.13 Other lesions of median nerve, bilateral upper limbs | CPT/HCPCS: 97166 ==